=== PATIENT | female | born 1955 | race Caucasian/White ===

== ENCOUNTER 2016-07-01 10:19 | Observation (INO) ==
[2016-07-01] MEDS ORDERED: 0.9 % Sodium Chloride 1,000 ML IVC ONE (11:03)
[2016-07-01] MEDS ORDERED: Ondansetron 4 MG/2 ML VIAL IVP ONE (11:03)
--- NOTE | 2016-07-01 11:14 | Emergency Department Note ---
Disposition Clinical Impression: Intractable nausea and vomiting Qualifiers: Vomiting type: unspecified Qualified Code(s): R11.2 - Nausea with vomiting, unspecified Disposition: Admitted As Inpatient Condition: Fair Referrals: Abraham Toth DO [Primary Care Provider] - Forms: ED Satisfaction Letter Time of Disposition: 14:21 Nausea/Vomiting/Diarrhea HPI - General Chief complaint: ED Nausea/Vomiting/Diarrhea Stated complaint: vomiting Time Seen by Provider: 07/01/16 10:39 Source: patient Limitations: no limitations - History of Present Illness HPI Narrative: 60-year-old female presents to the emergency department for evaluation of nausea , vomiting, diarrhea for 3 days. Patient states her symptoms initially began on Monday of this week. Patient states that she's had at least 4 episodes like this in the past most recently in September of last year. Patient states she's been unable to keep anything down and states that she tried to eat some Jell-O and drink some water yesterday but vomited it back up. She denies any fevers or chills but states that she has had aching, right-sided back pain. She denies any injury but thinks she may have strained something while vomiting. Patient denies any abdominal pain, dysuria, hematemesis or melena. Exam is remarkable for an elderly female resting in bed in no acute distress. Patient is noted to have dry mucous membranes of the oropharynx. Heart is regular rate and rhythm. Lungs are clear to auscultation bilaterally. Her abdomen is soft and nontender. Patient has reproducible back pain with palpation of the paraspinal musculature of the right lumbar spine. No other findings noted on exam. Pt Subjective Complaint: nausea, vomiting, diarrhea Onset (ago): day(s) (3) Description of emesis: food contents Description of Diarrhea: water Associated Abdominal Pain: No Improves with: nothing Worsens with: nonthing Associated symptoms: Reports: nausea/vomiting - Related Data Home Medications Medication Instructions Recorded Confirmed Cyclobenzaprine [Flexeril] 10 mg PO TID PRN 10/12/15 07/01/16 Insulin DETEMIR [Levemir] 20 unit SQ DAILY 10/12/15 07/01/16 Trazodone HCl [TraZODone] 50 mg PO HS PRN 10/12/15 07/01/16 Insulin LISPRO [Humalog Kwikpen 10 unit SQ TID 11/30/15 07/01/16 U-100] Gabapentin [Neurontin] 1,200 mg PO HS 07/01/16 07/01/16 Gabapentin [Neurontin] 600 mg PO QAM 07/01/16 07/01/16 Lactobacillus [Culturelle] 1 each PO DAILY 07/01/16 07/01/16 Naproxen Sodium [Aleve] 220 mg PO Q6H PRN 07/01/16 07/01/16 Omeprazole 40 mg PO HS 07/01/16 07/01/16 Ranitidine HCl [Zantac] 150 mg PO QAM 07/01/16 07/01/16 Allergies Allergy/AdvReac Type Severity Reaction Status Date / Time cephalexin [From Keflex] Allergy Difficulty Verified 07/01/16 10:28 Breathing All systems ED: reviewed and negative except as stated. Constitutional: Denies: fever, chills Cardiovascular: Denies: chest pain, palpitations, syncope Respiratory: Denies: cough, dyspnea Gastrointestinal: Reports: nausea, vomiting, diarrhea. 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 - Social History Smoking Status: Current every day smoker Smokeless Tobacco Status: No Alcohol use: Reports: none Drug use: Reports: none Physical Exam - General Limitations: no limitations General appearance: alert, in no apparent distress - Head Head exam: atraumatic, normocephalic, normal inspection - ENT ENT exam: mucous membranes dry - Chest Chest inspection: Present: normal inspection, symmetric chest wall rise - Respiratory Respiratory exam: Present: normal lung sounds bilaterally - Cardiovascular Cardiovascular exam: Present: regular rate, normal rhythm, normal heart sounds - Abdominal Exam Abdominal exam: Present: soft, Non-Tender. Absent: tenderness, distention, guarding, rebound, rigidity - Neurological Exam Neurological exam: Present: alert, oriented X3 - Skin Skin exam: Present: warm, dry, intact, normal color Course - Reevaluation(s) Reevaluation #1: Patient was unable to tolerate by mouth fluids after initial by mouth challenge. Phenergan ordered. Patient will continue to be monitored in the emergency department. Time: 13:37 Reevaluation #2: Patient continues to vomit despite multiple doses of anti-medics. Still unable to tolerate by mouth fluids. Will premedicate and request admission to the hospital for intractable nausea and vomiting. Time: 14:20 Reevaluation #3: Discussed case with hospitalist service. Patient accepted for further evaluation and treatment. Patient stable at time of disposition. Time: 14:46 Vital Signs Temperature 97.4 F L 07/01/16 10:25 Pulse Rate 73 07/01/16 10:25 Respiratory Rate 20 07/01/16 10:25 Blood Pressure 141/77 07/01/16 10:25 O2 Sat by Pulse Oximetry 97 07/01/16 10:25 Temperature 97.4 F L 07/01/16 10:25 Pulse Rate 55 07/01/16 14:41 Respiratory Rate 16 07/01/16 14:41 Blood Pressure 137/73 07/01/16 14:41 O2 Sat by Pulse Oximetry 99 07/01/16 14:41 Oxygen Delivery Oxygen Delivery Nasal Cannula Nausea/Vomiting/Diarrhea - MDM Narrative Medical decision making narrative: I examined this patient and my medical decision-making was reviewed with the CUSTOMER SERVICE TECHNICIAN/PA/Advanced Practice Nurse/Resident Physician. I agree with the documented findings, disposition and treatment plan as described except to the extent set forth below. I evaluated this patient today with Dr. Smith, I agree with his evaluation and treatment plan, I supervised care the patient throughout her stay. Patient has a history of diabetes. She has had some nausea here. She has been very dehydrated. Given her fluids due to work to make sure she does not have DKA and then reassess. She says she wants to go home today she denied any chest pain. 1400: Patient did have one episode of emesis. It were giving her some Phenergan and hydration and then reassess. She is in agreement with this plan. 1425 hrs.: Patient has still had vomiting despite getting antiemetics and fluids anytime she eats. We will bring her into the hospital. She is in agreement with this plan. Impression is diabetes nausea and vomiting leukocytosis. Patient's in agreement with this plan. - Medical Records Medical records reviewed: Yes I reviewed the patient's medical records. - Lab Data Lab results reviewed: Yes I reviewed the patient's lab results. Result diagrams: 07/01/16 11:17 07/01/16 11:17 Lab Results 07/01/16 07/01/16 07/01/16 Range/Units 10:50 11:17 11:17 WBC 20.0 H (4.3-11.1) K/mcL RBC 5.16 H (3.82-4.97) M/mcL Hgb 15.3 (11.5-15.4) g/dL Hct 43.6 (35.3-44.9) % MCV 84.5 (83.0-100.0) fL MCH 29.7 (28.0-33.3) pg MCHC 35.1 (31.6-35.5) g/dL RDW 12.6 (11.5-14.5) % Plt Count 313 (140-400) K/mcL MPV 10.0 (9.4-12.4) fL Immature Gran % 1.1 (0-4) % Seg Neutrophils % 89.6 % Lymphocytes % 4.3 % Monocytes % 4.7 % Eosinophils % 0.0 % Basophils % 0.3 % Neutrophils # 17.9 H (1.6-8.9) K/mcL Lymphocytes # 0.9 (0.6-4.6) K/mcL Monocytes # 0.9 (0.0-1.3) K/mcL Eosinophils # 0.0 (0.0-0.6) K/mcL Basophils # 0.1 (0.0-0.2) K/mcL Immature Plt Fraction 4.6 (1.1-6.1) % Sodium 138 (136-145) mEq/L Potassium 3.5 (3.5-4.5) mEq/L Chloride 93 L (98-109) mEq/L Carbon Dioxide 30 H (19-29) mEq/L BUN 25 H (7-20) mg/dL Creatinine 0.93 (0.57-1.11) mg/dL Est GFR ( Amer) > 60 (> 60) Est GFR (Non-Af Amer) > 60 (> 60) BUN/Creatinine Ratio 27 H (6-26) Glucose 302 H (70-99) mg/dL Calculated Osmolality 302 H (280-300) Calcium 9.2 (8.6-10.8) mg/dL Urine Color Dark Yellow (Yellow) Urine Clarity Clear (Clear) Urine pH 5.5 (5.0-8.0) pH Units Ur Specific [place] > 1.030 H (1.010-1.025) Urine Protein 100 H (Neg-Trace) mg/dL Urine Glucose (UA) >=1000 H (Normal) mg/dL Urine Ketones 40 H (Negative) mg/dL Urine Blood Negative (Negative) Urine Nitrite Negative (Negative) Urine Bilirubin Small H (Negative) Urine Urobilinogen Normal (Normal) mg/dL Ur Leukocyte Esterase Negative (Negative) Urine Microscopic RBC 5-15 H (0-3) per hpf Urine Microscopic WBC 0-3 (0-3) per hpf Ur Squamous Epith Cells Many H (None-Few) per lpf Urine Bacteria None Seen (None-Few) per hpf Hyaline Casts None Seen (None-Few) per lpf Ur Culture Indicated? NO (NO) - Radiology Data Radiology results reviewed: Yes I reviewed the patient's radiology results. - EKG Data EKG attestation: Yes I reviewed and interpreted this EKG.
[2016-07-01 11:24] LABS: Basophils # 0.1 K/mcL (0.0-0.2); Basophils % 0.3 %; Hematocrit 43.6 % (35.3-44.9); Hemoglobin 15.3 g/dL (11.5-15.4); Immature Granulocytes % 1.1 % (0-4); Immature Platelets 4.6 % (1.1-6.1); Lymphocytes # 0.9 K/mcL (0.6-4.6); Lymphocytes % 4.3 %; Mean Corpuscular HGB Conc 35.1 g/dL (31.6-35.5); Mean Corpuscular Hemoglobin 29.7 pg (28.0-33.3); Mean Corpuscular Volume 84.5 fL (83.0-100.0); Monocytes # 0.9 K/mcL (0.0-1.3); Monocytes % 4.7 %; Neutrophils # 17.9 K/mcL (1.6-8.9); Platelet Count 313 K/mcL (140-400); Red Blood Count 5.16 M/mcL (3.82-4.97); Red Cell Distribution Width 12.6 % (11.5-14.5); Segmented Neutrophils % 89.6 %
[2016-07-01 11:31] LABS: Bilirubin,Urine Small (Negative); Blood,Urine Negative (Negative); Clarity,Urine Clear (Clear); Color,Urine Dark Yellow (Yellow); Glucose,Urine (UA) >=1000 mg/dL (Normal); Ketones,Urine 40 mg/dL (Negative); Leukocyte Esterase,Urine Negative (Negative); Nitrite,Urine Negative (Negative); PH,Urine 5.5 pH Units (5.0-8.0); Protein,Urine 100 mg/dL (Neg-Trace); Specific Gravity,Urine > 1.030 (1.010-1.025); Urobilinogen,Urine Normal (Normal)
[2016-07-01 11:33] LABS: Bacteria,Urine None Seen per hpf (None-Few); Hyaline Casts,Urine None Seen per lpf (None-Few); Squamous Epithelial Cell,Urine Many per lpf (None-Few); WBC,Urine 0-3 per hpf (0-3)
[2016-07-01 11:36] LABS: BUN/Creatinine Ratio 27 (6-26); Blood Urea Nitrogen 25 mg/dL (7-20); Calcium 9.2 mg/dL (8.6-10.8); Carbon Dioxide 30 mEq/L (19-29); Chloride 93 mEq/L (98-109); Glucose 302 mg/dL (70-99); Osmolality,Calculated 302 (280-300); Potassium 3.5 mEq/L (3.5-4.5); Sodium 138 mEq/L (136-145); eGFR For African Americans > 60 (> 60); eGFR For Non-African Americans > 60 (> 60)
[2016-07-01] MEDS ORDERED: *HR* FentaNYL (PF) 100 MCG/2 ML VIAL IV ONE ×2 (11:50→14:19)
[2016-07-01] MEDS ORDERED: 0.9 % Sodium Chloride 1,000 ML IV ONE (13:34)
[2016-07-01] MEDS ORDERED: *HR* Promethazine 25 MG/ML VIAL IVP ONE (13:34)
[2016-07-01] MEDS ORDERED: Metoclopramide 10 MG/2 ML VIAL IVP ONE (14:19)
[2016-07-01] MEDS ORDERED: Naloxone 0.4 MG/ML INJ IVP PRN (16:20)
[2016-07-01] MEDS ORDERED: Ondansetron 4 MG/2 ML VIAL IVP PRN (16:20)
[2016-07-01] MEDS ORDERED: Dextrose Gel 15 GM PO PRN ×2 (16:23)
[2016-07-01] MEDS ORDERED: D5% in Water 1,000 ML IV PRN (16:23)
[2016-07-01] MEDS ORDERED: *HR* Dextrose 50 % in Water (Syg) 50 ML SYRINGE IVP PRN (16:23)
[2016-07-01] MEDS ORDERED: traZODone 50 MG TABLET PO PRN (16:24)
[2016-07-01] MEDS ORDERED: 0.9 % Sodium Chloride 1,000 ML IVC SCH (16:30)
--- NOTE | 2016-07-01 16:54 | Internal Med History&Physical ---
<Darius Clifford - Last Filed: 07/01/16 19:03> Date of Encounter: 07/01/16 Internal Medicine - H&P: HPI History of present illness: Ms. Staton is a 60 year old female Internal Medicine - H&P: Meds Cyclobenzaprine [Flexeril] 10 mg PO TID PRN 10/12/15 [History] Insulin DETEMIR [Levemir] 20 unit SQ DAILY 10/12/15 [History] Trazodone HCl [TraZODone] 50 mg PO HS PRN 10/12/15 [History] Insulin LISPRO [Humalog Kwikpen U-100] 10 unit SQ TID 11/30/15 [History] Gabapentin [Neurontin] 1,200 mg PO HS 07/01/16 [History] Gabapentin [Neurontin] 600 mg PO QAM 07/01/16 [History] Lactobacillus [Culturelle] 1 each PO DAILY 07/01/16 [History] Naproxen Sodium [Aleve] 220 mg PO Q6H PRN 07/01/16 [History] Omeprazole 40 mg PO HS 07/01/16 [History] Ranitidine HCl [Zantac] 150 mg PO QAM 07/01/16 [History] Allergies cephalexin [From Keflex] Allergy (Verified 07/01/16 10:28) Difficulty Breathing All Systems PM: A 10-system review of systems was performed and is negative for pertinent findings except as documented above in the HPI. - Constitutional Vitals: Temp Pulse Resp BP Pulse Ox 98.1 F 59 16 151/66 91 L 07/01/16 15:51 07/01/16 15:51 07/01/16 15:51 07/01/16 15:51 07/01/16 15:51 Internal Med - H&P Results - Labs CBC & Chem 7: 07/01/16 11:17 07/01/16 11:17 - Attending Attestation I examined this patient and my medical decision-making was reviewed with the Advanced Practice Provider. I agree with the documented findings, disposition and treatment plan as described except to the extent set forth below. On exam she is in no acute distress, heart regular rate and rhythm S1-S2, lungs clear, abdomen soft. I will add Levemir to moderate sliding scale. Switch diet to clear liquid diet and advance slowly as tolerated. Provide IV fluids. Check urine toxicology. <Abeba Caal - Last Filed: 07/01/16 21:06> Date of Encounter: 07/01/16 Time of Encounter: 16:50 Assessment and Plan (1) Dehydration Current visit: Yes Status: Acute Patient with nausea, vomiting x 3 days. She reports some episodes of diarrhea a few days ago as well. Unable to keep anything down. Mucus membranes dry on exam. 2L of 0.9NS bolus given. 0.9NS at 150mL/hr (2) Type 2 diabetes mellitus Current visit: Yes Status: Acute Patient has not been checking her blood sugars or giving herself insulin over the last 3 days because she wasn't feeling well. Blood sugar is 302 and urine with large glucose and ketones. Patient has dehydration and mild DKA. Diabetic diet as tolerated. Check blood sugar Q6hr Sliding scale insulin correction dose hypoglycemic protocol. recheck chemistry at 8pm and in the morning Qualifiers: Diabetes mellitus complication status: with ketoacidosis Diabetes mellitus complication detail: without coma Diabetes mellitus pharmacy intake technician insulin use: with snf use Qualified Code(s): E13.10 - Other specified diabetes mellitus with ketoacidosis without coma; Z79.4 - skilled nursing (current) use of insulin (3) Intractable nausea and vomiting Current visit: Yes Status: Acute Patient with Nausea and vomiting x 3 days, unrelieved by zosyn and phenergan given in ED. 2L bolus given, IV fluids of 0.9NS at 150ml/hr PRN Zosyn and PHenergan. Qualifiers: Vomiting type: unspecified Qualified Code(s): R11.2 - Nausea with vomiting , unspecified (4) Leukocytosis Current visit: No Status: Acute WBC count 20.0, likely due to gastroenteritis versus reactive. Patient afebrile. Will recheck labs in the morning. Qualifiers: Leukocytosis type: bandemia Qualified Code(s): D72.825 - Bandemia (5) DVT prophylaxis Current visit: Yes Status: Acute Encourage ambulation anti-embolic stockings Heparin 5,000u SQ BID Internal Medicine - H&P: HPI Chief complaint: intractible nausea and vomiting Admitted From: Emergency Dept Plans for Post Hospital Care: Home History of present illness: Ms. Staton is a 60 year old female with type 2 diabetes, COPD and GERD who presented to the ED today with 3 days of nausea and vomiting. She reports she had nausea and vomiting which started 3 days ago she also had some episodes of diarrhea but has not have any diarrhea in the last 2 days. He is unable to keep anything down. She denies any fever or chills, sweats, abdominal pain, body aches, headache. She denies any chest pain, palpitations, shortness of breath, cough. She reports some back pain she attributes to pulling a muscle when vomiting. She has not checked her blood sugar or giving herself insulin in the last 3 days because she has not felt well enough. Evaluation in the emergency department was significant for elevated white count to 20.0, elevated blood sugar to 302. Her anion gap is 15. Urine showed large amounts of glucose and ketones. She was given 2 L of 0.9 bolus in the emergency department , antiemetics, and pain medicine. She has no relief from her nausea and vomiting. Her back pain was somewhat relieved by pain medicine. On exam she is alert and oriented in no distress. Abdomen is diffusely tender. Heart has regular rate and rhythm, lungs are clear to auscultation bilaterally. Past Med Surg Social Fam HX - Past Medical History Medical history: arthritis, COPD, diabetes, GERD Psychiatric history: anxiety, depression - Past Surgical History Surgical History: breast surgery - Social History Smoking Status: Current every day smoker (30 pack year history) Smokeless Tobacco Status: No Alcohol use: none Drug use: none - Family History Sister Living Status: Hx Family Cancer: Yes (breast ca) Father Living Status: Hx Family Cancer: Yes All Systems PM: A 10-system review of systems was performed and is negative for pertinent findings except as documented above in the HPI. - Constitutional Constitutional: no chills, no fever(s), no night sweats - EENT Eyes: no change in vision, no discharge, no pain, no photophobia Nose, mouth and throat: no dysphagia, no nasal discharge, no neck pain, no sore throat - Cardiovascular Cardiovascular ROS IM: no chest pain, no diaphoresis, no dyspnea, no lightheadedness, no palpitations, no syncope - Respiratory Respiratory: no cough, no dyspnea, no wheezing, no excessive phlegm production - Gastrointestinal Gastrointestinal: diarrhea, nausea, vomiting, no abdominal pain, no hematemesis , no hematochezia, no melena - Genitourinary Genitourinary: no change in urinary stream, no dysuria, no flank pain, no hematuria - Musculoskeletal Musculoskeletal ROS IM: no numbness, no tingling - Integumentary Integumentary IM: no rash, no unusual bruising - Neurological Neurological ROS: no confusion, no convulsions, no focal weakness, no numbness, no tingling, no tremor(s) - Hematologic/Lymphatic Hematologic/Lymphatic: no easy bruising - Constitutional Vitals: Temp Pulse Resp BP Pulse Ox 98.1 F 59 16 151/66 91 L 07/01/16 15:51 07/01/16 15:51 07/01/16 15:51 07/01/16 15:51 07/01/16 15:51 General appearance: Present: A&O X 3, no acute distress - Head Head exam: Present: atraumatic, normocephalic - Eye Eye exam: Present: PERRL, conjuntiva pink, sclera anicteric Pupils: Present: PERRL - Neck Neck exam general surgery: Present: supple, trachea midline. Absent: lymphadenopathy - Respiratory Respiratory exam: Present: CTAB. Absent: accessory muscle use, rales, rhonchi, wheezes - Cardiovascular Cardiovascular exam: Present: RRR, +S1, +S2. Absent: diastolic murmur, gallop, rubs, systolic murmur - GI/Abdominal GI/Abdominal exam: Present: normal bowel sounds, soft, tenderness, no peritoneal signs. Absent: distended - Extremities Exam Extremities exam: Present: warm, radial pulses palpable and symetrical. Absent : calf tenderness, cyanotic, pedal edema - Neurological Exam Neurological exam: Present: CN II-XII intact, oriented X3, no focal deficits. Absent: facial droop, speech deficit - Skin Skin exam: Present: dry, intact Internal Med - H&P Results - Labs CBC & Chem 7: 07/01/16 11:17 07/01/16 11:17 Labs: All Lab Results (24 Hours) 07/01/16 07/01/16 07/01/16 Range/Units 10:50 11:17 11:17 WBC 20.0 H (4.3-11.1) K/mcL RBC 5.16 H (3.82-4.97) M/mcL Hgb 15.3 (11.5-15.4) g/dL Hct 43.6 (35.3-44.9) % MCV 84.5 (83.0-100.0) fL MCH 29.7 (28.0-33.3) pg MCHC 35.1 (31.6-35.5) g/dL RDW 12.6 (11.5-14.5) % Plt Count 313 (140-400) K/mcL MPV 10.0 (9.4-12.4) fL Immature Gran % 1.1 (0-4) % Seg Neutrophils % 89.6 % Lymphocytes % 4.3 % Monocytes % 4.7 % Eosinophils % 0.0 % Basophils % 0.3 % Neutrophils # 17.9 H (1.6-8.9) K/mcL Lymphocytes # 0.9 (0.6-4.6) K/mcL Monocytes # 0.9 (0.0-1.3) K/mcL Eosinophils # 0.0 (0.0-0.6) K/mcL Basophils # 0.1 (0.0-0.2) K/mcL Immature Plt Fraction 4.6 (1.1-6.1) % Sodium 138 (136-145) mEq/L Potassium 3.5 (3.5-4.5) mEq/L Chloride 93 L (98-109) mEq/L Carbon Dioxide 30 H (19-29) mEq/L BUN 25 H (7-20) mg/dL Creatinine 0.93 (0.57-1.11) mg/dL Est GFR ( Amer) > 60 (> 60) Est GFR (Non-Af Amer) > 60 (> 60) BUN/Creatinine Ratio 27 H (6-26) Glucose 302 H (70-99) mg/dL Calculated Osmolality 302 H (280-300) Calcium 9.2 (8.6-10.8) mg/dL Urine Color Dark Yellow (Yellow) Urine Clarity Clear (Clear) Urine pH 5.5 (5.0-8.0) pH Units Ur Specific [place] > 1.030 H (1.010-1.025) Urine Protein 100 H (Neg-Trace) mg/dL Urine Glucose (UA) >=1000 H (Normal) mg/dL Urine Ketones 40 H (Negative) mg/dL Urine Blood Negative (Negative) Urine Nitrite Negative (Negative) Urine Bilirubin Small H (Negative) Urine Urobilinogen Normal (Normal) mg/dL Ur Leukocyte Esterase Negative (Negative) Urine Microscopic RBC 5-15 H (0-3) per hpf Urine Microscopic WBC 0-3 (0-3) per hpf Ur Squamous Epith Cells Many H (None-Few) per lpf Urine Bacteria None Seen (None-Few) per hpf Hyaline Casts None Seen (None-Few) per lpf Ur Culture Indicated? NO (NO)
[2016-07-01] MEDS: 0.9 % Sodium Chloride 1,000 ML IVC SCH (17:10)
[2016-07-01] MEDS: *HR* Promethazine 25 MG/ML VIAL IVP PRN (17:10)
[2016-07-01] MEDS: Insulin LISPRO 300 UNITS/3 ML VIAL SQ SCH (18:08)
[2016-07-01] MEDS: *HR* Heparin 5,000 UNIT/ML VIAL SQ SCH (18:11)
[2016-07-01] MEDS ORDERED: *HR* Morphine 2 MG/ML SYRINGE IVP ONE (20:11)
[2016-07-01] MEDS ORDERED: Insulin DETEMIR 100 UNIT/ML X5UNITS SQ SCH (21:00)
[2016-07-01] MEDS: Pantoprazole 40 MG VIAL IVP SCH (21:21)
[2016-07-01] MEDS: Gabapentin 400 MG CAPSULE PO SCH (21:21)
[2016-07-01 22:17] LABS: BUN/Creatinine Ratio 24 (6-26); Blood Urea Nitrogen 18 mg/dL (7-20); Calcium 8.1 mg/dL (8.6-10.8); Carbon Dioxide 24 mEq/L (19-29); Chloride 102 mEq/L (98-109); Glucose 234 mg/dL (70-99); Osmolality,Calculated 299 (280-300); Potassium 3.3 mEq/L (3.5-4.5); Sodium 140 mEq/L (136-145); eGFR For African Americans > 60 (> 60); eGFR For Non-African Americans > 60 (> 60)
[2016-07-02] MEDS: 0.9 % Sodium Chloride 1,000 ML IVC SCH ×2 (00:08→06:46)
[2016-07-02] MEDS: Insulin LISPRO 300 UNITS/3 ML VIAL SQ SCH ×4 (00:20→17:36)
[2016-07-02 05:40] LABS: Basophils # 0.1 K/mcL (0.0-0.2); Basophils % 0.3 %; Eosinophils # 0.1 K/mcL (0.0-0.6); Eosinophils % 0.3 %; Hematocrit 36.6 % (35.3-44.9); Immature Granulocytes % 0.7 % (0-4); Lymphocytes # 2.4 K/mcL (0.6-4.6); Lymphocytes % 13.9 %; Mean Corpuscular HGB Conc 34.4 g/dL (31.6-35.5); Mean Corpuscular Hemoglobin 30.1 pg (28.0-33.3); Mean Corpuscular Volume 87.4 fL (83.0-100.0); Monocytes # 1.6 K/mcL (0.0-1.3); Monocytes % 9.2 %; Neutrophils # 13.1 K/mcL (1.6-8.9); Platelet Count 250 K/mcL (140-400); Red Blood Count 4.19 M/mcL (3.82-4.97); Red Cell Distribution Width 12.9 % (11.5-14.5); Segmented Neutrophils % 75.6 %
[2016-07-02 05:46] LABS: Hemoglobin A1C 7.5 %
[2016-07-02 05:55] LABS: BUN/Creatinine Ratio 18 (6-26); Blood Urea Nitrogen 14 mg/dL (7-20); Calcium 7.6 mg/dL (8.6-10.8); Carbon Dioxide 27 mEq/L (19-29); Chloride 106 mEq/L (98-109); Glucose 101 mg/dL (70-99); Osmolality,Calculated 293 (280-300); Potassium 3.7 mEq/L (3.5-4.5); Sodium 141 mEq/L (136-145); eGFR For African Americans > 60 (> 60); eGFR For Non-African Americans > 60 (> 60)
[2016-07-02 05:58] LABS: Hemoglobin 12.6 g/dL (11.5-15.4)
[2016-07-02] MEDS: *HR* Heparin 5,000 UNIT/ML VIAL SQ SCH ×2 (06:44→17:36)
[2016-07-02 08:03] LABS: Amphetamine Screen,Urine Negative ng/mL (Cutoff=1000); Barbiturate Screen,Urine Negative ng/mL (Cutoff=200); Benzodiazepines Screen,Urine Negative ng/mL (Cutoff=200); Cannabinoid Screen,Urine Negative ng/mL (Cutoff = 50); Cocaine Screen,Urine Negative ng/mL (Cutoff= 300); Opiate Screen,Urine Positive ng/mL (Cutoff=300); Phencyclidine Screen,Urine Negative ng/mL (Cutoff=25)
[2016-07-02] MEDS: Pantoprazole 40 MG VIAL IVP SCH ×2 (08:13→21:06)
[2016-07-02] MEDS: Lactobacillus 1 EACH CAP.SPRINK PO SCH (08:13)
[2016-07-02] MEDS: *HR* Promethazine 25 MG/ML VIAL IVP PRN ×2 (08:13→15:05)
[2016-07-02] MEDS: Famotidine 20 MG TABLET PO SCH (08:14)
[2016-07-02] MEDS: Gabapentin 300 MG CAPSULE PO SCH (08:14)
--- NOTE | 2016-07-02 12:17 | Internal Med Progress Note ---
Date of Encounter: 07/02/16 Time of Encounter: 12:00 - Assessment and plan (1) Nausea and vomiting in adult patient Current Visit: No Status: Acute Assessment and plan: likely secondary to gastritis. no vomiting since admission but very nauseous. She did not eat anything till 6pm when he had a bite of jellow. /has received IV phenergan multiple time dueing the day. continue IV PPI and if patient tolerates more her diet I will dc her home tomorrow. (2) Dehydration Current Visit: Yes Status: Acute Assessment and plan: resolved. On admission, patient had hypochloremia, elevated BUN and elevated glucose at 302. received 3550 ml of IV fluids. (3) Gastritis Current Visit: No Status: Acute Assessment and plan: plan as above. Qualifiers: Gastritis type: unspecified gastritis Chronicity: acute Gastritis bleeding: without bleeding Qualified Code(s): K29.00 - Acute gastritis without bleeding (4) Leukocytosis Current Visit: No Status: Acute Assessment and plan: could be reactive from dehydration vs viral gastroenteritis. close monitor. UA is negative. no diarrhea. no cough. no Upper respiratory symptoms. Qualifiers: Leukocytosis type: leukemoid reaction Qualified Code(s): D72.823 - Leukemoid reaction (5) Type 2 diabetes mellitus Current Visit: Yes Status: Acute Assessment and plan: HA1c 7.5. elevated glucose level on admission continue insulin sliding scale and diabetic diet. 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 she does feel better than yesterday. - Constitutional Vitals: Temp Pulse Resp BP Pulse Ox 98.4 F 60 18 115/67 90 L 07/02/16 11:22 07/02/16 11:22 07/02/16 11:22 07/02/16 11:22 07/02/16 11:22 General appearance: Present: cooperative, A&O X 3, pleasant, no acute distress, answers questions appropriately - Eye Eye exam: Present: PERRL, sclera anicteric - Neck Neck exam general surgery: Present: supple, trachea midline. Absent: lymphadenopathy - Respiratory Respiratory exam: Present: CTAB - Cardiovascular Cardiovascular exam: Present: RRR - GI/Abdominal GI/Abdominal exam: Present: normal bowel sounds, soft. Absent: distended, tenderness - Extremities Exam Extremities exam: Absent: pedal edema - Back Exam Back exam: Absent: CVA tenderness (L), CVA tenderness (R) - Neurological Exam Neurological exam: Present: alert, oriented X3. Absent: facial droop, speech deficit Internal Medicine: Result - Labs CBC & Chem 7: 07/02/16 05:12 07/02/16 05:12 Labs: Short CBC 07/02/16 Range/Units 05:12 WBC 17.4 H (4.3-11.1) K/mcL Hgb 12.6 D (11.5-15.4) g/dL Hct 36.6 (35.3-44.9) % Plt Count 250 (140-400) K/mcL Neutrophils # 13.1 H (1.6-8.9) K/mcL BMP 07/01/16 07/02/16 21:42 05:12 Sodium 140 141 Potassium 3.3 L 3.7 Chloride 102 106 Carbon Dioxide 24 27 BUN 18 14 Creatinine 0.76 0.78 Glucose 234 H 101 H Calcium 8.1 L 7.6 L - VTE Documentation of Mechanical Device: Graduated compression elastic hosiery Consult Discharge Plan - Plan Referrals: Abraham Toth DO [Primary Care Provider] -
[2016-07-02] MEDS: Gabapentin 400 MG CAPSULE PO SCH (20:59)
[2016-07-03] MEDS: Insulin LISPRO 300 UNITS/3 ML VIAL SQ SCH ×2 (03:45→07:21)
[2016-07-03 04:50] LABS: Alanine Aminotransferase 12 Units/L (0-55); Albumin 2.8 g/dL (3.5-5.0); Albumin/Globulin Ratio 1.1 (1.1-2.2); Alkaline Phosphatase 44 Units/L (38-126); Aspartate Amino Transferase 15 Units/L (5-34); BUN/Creatinine Ratio 14 (6-26); Bilirubin,Total 0.5 mg/dL (0.2-1.2); Blood Urea Nitrogen 10 mg/dL (7-20); Calcium 8.1 mg/dL (8.6-10.8); Carbon Dioxide 24 mEq/L (19-29); Chloride 106 mEq/L (98-109); Globulin 2.5 g/dL (2.4-3.5); Glucose 99 mg/dL (70-99); Magnesium 1.4 mg/dL (1.6-2.6); Osmolality,Calculated 289 (280-300); Phosphorous 2.5 mg/dL (2.3-4.7); Potassium 3.4 mEq/L (3.5-4.5); Sodium 140 mEq/L (136-145); Total Protein 5.3 g/dL (6.0-8.3); eGFR For African Americans > 60 (> 60); eGFR For Non-African Americans > 60 (> 60)
[2016-07-03 07:18] VITALS: BP 117/59
[2016-07-03] MEDS: *HR* Heparin 5,000 UNIT/ML VIAL SQ SCH (09:56)
[2016-07-03] MEDS: Pantoprazole 40 MG VIAL IVP SCH (09:56)
[2016-07-03] MEDS: Lactobacillus 1 EACH CAP.SPRINK PO SCH (09:56)
[2016-07-03] MEDS: Famotidine 20 MG TABLET PO SCH (09:56)
[2016-07-03] MEDS: Gabapentin 300 MG CAPSULE PO SCH (09:56)
[2016-07-03] MEDS ORDERED: Potassium Chloride Elixir 20 MEQ/15 ML UDC PO ONE (10:30)
[2016-07-03] MEDS ORDERED: Magnesium Oxide 400 MG TABLET PO ONE (10:35)
--- NOTE | 2016-07-03 10:36 | Discharge Summary ---
Date of Encounter: 07/03/16 Time of Encounter: 10:32 - Discharge Diagnosis (1) Nausea and vomiting in adult patient Priority: Primary Status: Acute (2) Dehydration Priority: Primary Status: Acute (3) Gastritis Priority: Primary Status: Acute Qualifiers: Gastritis type: unspecified gastritis Chronicity: acute Gastritis bleeding: without bleeding Qualified Code(s): K29.00 - Acute gastritis without bleeding (4) Leukocytosis Priority: Primary Status: Acute Qualifiers: Leukocytosis type: leukemoid reaction Qualified Code(s): D72.823 - Leukemoid reaction (5) Type 2 diabetes mellitus Priority: Secondary Status: Chronic Qualifiers: Diabetes mellitus complication status: with ketoacidosis Diabetes mellitus complication detail: without coma Diabetes mellitus retirement insulin use: with retirement use Qualified Code(s): E13.10 - Other specified diabetes mellitus with ketoacidosis without coma; Z79.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 [place] Medications: Cyclobenzaprine [Flexeril] 10 mg PO TID PRN 10/12/15 [History] Trazodone HCl [TraZODone] 50 mg PO HS PRN 10/12/15 [History] Insulin LISPRO [Humalog Kwikpen U-100] 10 unit SQ TID 11/30/15 [History] Gabapentin [Neurontin] 1,200 mg PO HS 07/01/16 [History] Gabapentin [Neurontin] 600 mg PO QAM 07/01/16 [History] Lactobacillus [Culturelle] 1 each PO DAILY 07/01/16 [History] Omeprazole 40 mg PO HS 07/01/16 [History] Ranitidine HCl [Zantac] 150 mg PO QAM 07/01/16 [History] Glipizide/Metformin HCl [Glipizide-Metformin 2.5-500 mg] 1 each PO DAILY #30 tablet 07/03/16 [Rx] Magnesium Oxide [Mag-Ox] 400 mg PO BID #60 tablet 07/03/16 [Rx] Pantoprazole Sodium 40 mg PO DAILY #30 tablet. 07/03/16 [Rx] Allergies/Adverse Reactions: Allergies cephalexin [From Keflex] Allergy (Verified 07/01/16 10:28) Difficulty Breathing Date of admission: 07/01/16 14:54 Primary care physician: Abraham Toth, - Patient Status Disposition: Home, Self-Care Condition: Good Functional capacity at discharge: independent ambulation Overall status at discharge: patient is progressing back to baseline - Discharge Instructions Instructions: Acute Kidney Injury (DC) Follow Up With: Abraham Toth, [Primary Care Provider] - (f/u in 1 week) Additional Instructions: Follow up a diabetic diet. drink plenty of fluids at least 1.8 liters a day. check your blood sugars 4 times a day (before breakfast, lunch and dinner and at bedtime) f/u with your primary care doctor to address your diabetes, gastritis and have repeat blood tests. - Diet and Activity Activity: resume usual activities as tolerated Diet: diabetic diet, low fat, low cholesterol, low salt diet Interval History: Patient feels better and is eager to go home. She denies any nausea, vomiting or abdominal pain. She is tolerating well her diet. Does not use any antiemetics. Hospital course: Ms. Staton is a 60 year old female with past medical history of diabetes, COPD, and GERD who presented with a chief complaint of nausea, and vomiting. She was admitted with severe dehydration due to acute gastritis and was started on IV fluids and IV PPI with slow improvement. The day of discharge, the patient was eating well and was eager to go home. Her potassium and magnesium were mildly decreased and these were replaced. PLAN: Patient was encouraged to increase the amount of fluid intake. Follow-up a strict diabetic diet. Checks her blood sugars 4 times daily and bring the log to doctor's office. Follow-up with primary care physician next week. Repeat myelination levels per primary care physician. - Time Spent with Patient Total time spent providing and/or coordinating discharge services: - Constitutional Vitals: Temp Pulse Resp BP Pulse Ox 98.1 F 52 18 117/59 94 L 07/03/16 07:17 07/03/16 07:17 07/03/16 07:17 07/03/16 07:07/03/16 09:21 General appearance: Present: cooperative, A&O X 3, pleasant, no acute distress, answers questions appropriately - Eye Eye exam: Present: PERRL - Neck Neck exam general surgery: Present: supple, trachea midline. Absent: lymphadenopathy - Respiratory Respiratory exam: Present: CTAB - Cardiovascular Cardiovascular exam: Present: RRR - GI/Abdominal GI/Abdominal exam: Present: normal bowel sounds, soft. Absent: distended, tenderness - Extremities Exam Extremities exam: Absent: pedal edema - Back Exam Back exam: Absent: CVA tenderness (L), CVA tenderness (R) - Neurological Exam Neurological exam: Present: alert, oriented X3. Absent: facial droop, speech deficit - Skin Skin exam: Absent: rash - VTE Documentation of Mechanical Device: Graduated compression elastic hosiery
--- NOTE | 2016-07-03 21:49 | Electrocardiograph Report ---
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
== END 2016-07-03 12:00 | disposition home or self-care (01) ==
LOC: SUPCPDRO → EMEROO 10:19 → 3BNU 10:19 → SUATTDRO 14:54 → 3BNU 15:48
PROVIDERS: ADMIT Internal Medicine; ATTEND Internal Medicine

== ENCOUNTER 2017-03-04 14:50 | Inpatient (IN) ==
[~2017-03-04 14:50] MED LIST: Aminoglycoside Consult 1 EACH MC ONE
[2017-03-04] MEDS ORDERED: 0.9 % Sodium Chloride 1,000 ML IVC ONE (15:11)
[2017-03-04] MEDS ORDERED: *HR* HYDROmorphone (PF) 1 MG/ML SYRINGE IVP ONE (15:11)
[2017-03-04] MEDS ORDERED: Ondansetron 4 MG/2 ML VIAL IVP ONE (15:11)
--- NOTE | 2017-03-04 15:15 | Emergency Department Note ---
Disposition Clinical Impression: Acute kidney injury Nausea & vomiting Qualifiers: Vomiting type: unspecified Vomiting Intractability: unspecified Qualified Code( s): R11.2 - Nausea with vomiting, unspecified Leukocytosis Qualifiers: Leukocytosis type: unspecified Qualified Code(s): D72.829 - Elevated white blood cell count, unspecified Disposition: Admitted As Inpatient Condition: Fair Referrals: Abraham Toth DO [Primary Care Provider] - Forms: ED Satisfaction Letter Time of Disposition: 17:00 Nausea/Vomiting/Diarrhea HPI - General Chief complaint: ED Nausea/Vomiting/Diarrhea Stated complaint: N/V Time Seen by Provider: 03/04/17 15:00 Source: patient Mode of arrival: ambulatory Limitations: no limitations Nursing Notes Reviewed: Yes Vital Signs Reviewed: Yes - History of Present Illness HPI Narrative: 61-year-old female who comes in with nausea vomiting for the last day. Patient states that she has a history of this recurring. She states she's been evaluated and etiology has not been determined. Review of records show the patient did have endoscopy 10/2015. Results show esophagitis, gastritis, duodenitis. Pt Subjective Complaint: nausea, vomiting Onset (ago): day(s) Description of emesis: food contents (1) Associated Abdominal Pain: Yes If pain, Location of pain: diffuse Severity: mild Improves with: nothing Worsens with: nonthing Associated symptoms: Reports: myalgias - Related Data Home Medications Medication Instructions Recorded Confirmed Cyclobenzaprine [Flexeril] 10 mg PO TID PRN 10/12/15 03/04/17 Insulin LISPRO [Humalog Kwikpen 12 unit SQ TID 11/30/15 03/04/17 U-100] Gabapentin [Neurontin] 600 mg PO TID 07/01/16 03/04/17 Omeprazole 40 mg PO HS 07/01/16 03/04/17 Insulin DETEMIR [Levemir] 45 unit SQ DAILY 03/04/17 03/04/17 Allergies Allergy/AdvReac Type Severity Reaction Status Date / Time cephalexin [From Keflex] Allergy Difficulty Verified 03/04/17 15:00 Breathing All systems ED: reviewed and negative except as stated. Constitutional: Denies: fever, chills, weakness, weight change Eyes: Denies: eye pain, eye discharge, vision change ENT ED: Denies: ear pain, throat pain, dental pain, hearing loss, epistaxis, congestion, dysphagia Cardiovascular: Denies: chest pain, palpitations, dyspnea on exertion, edema, syncope Respiratory: Denies: cough, dyspnea, wheezes, hemoptysis, stridor Gastrointestinal: Reports: abdominal pain, nausea, vomiting. Denies: diarrhea, constipation, hematemesis, melena, hematochezia Genitourinary: Denies: dysuria, frequency, hematuria, discharge Musculoskeletal: Denies: back pain, neck pain, arthralgia, myalgia Integumentary: Denies: rash, abrasion, lesions Neurological: Denies: headache, weakness, numbness, paresthesias, confusion, abnormal gait, vertigo Psychiatric: Denies: anxiety, depression, suicidal thoughts, homicidal thoughts , auditory hallucinations, visual hallucinations Endocrine: Denies: fatigue Hematological/Lymphatic: Denies: easy bleeding, easy bruising Allergic/Immunologic: Denies: facial swelling, urticaria Past Medical History - Past Medical History Medical history: Reports: arthritis, COPD, diabetes, GERD Surgical history: Reports: breast surgery Psychiatric history: Reports: anxiety, depression COLOR MIXER history: Reports: bilateral tubal ligation - Social History Smoking Status: Current every day smoker Smokeless Tobacco Status: No Alcohol use: Reports: none Drug use: Reports: none Physical Exam - General Limitations: no limitations General appearance: alert, in no apparent distress - Head Head exam: atraumatic, normocephalic, normal inspection - Eye Eye exam: Present: normal appearance, PERRL, EOMI - ENT ENT exam: normal exam, normal oropharynx, mucous membranes moist - Neck Neck exam: Present: normal inspection, full ROM, trachea midline - Chest Chest inspection: Present: normal inspection, symmetric chest wall rise - Respiratory Respiratory exam: Present: normal lung sounds bilaterally - Cardiovascular Cardiovascular exam: Present: regular rate, normal rhythm, normal heart sounds - Abdominal Exam Abdominal exam: Present: tenderness. Absent: guarding, rebound Abdominal tenderness: Present: epigastrium - Extremities Exam Extremities exam: Present: normal inspection, full ROM. Absent: tenderness, pedal edema - Expanded Lower Extremity Exam Gait: not tested/not observed - Back Exam Back exam: Present: normal inspection, full ROM. Absent: tenderness - Neurological Exam Neurological exam: Present: alert, oriented X3 - Psychiatric Psychiatric exam: Present: normal affect, normal mood - Skin Skin exam: Present: warm, dry, intact, normal color Course - Consultations Consultation #1: Discussed Levaquin dosing with pharmacy recommendations given. Time: 16:59 Consultation #2: Discussed with Leonard Dukes, Request hematology consult and nephrology consult. Time: 18:07 Consultation #3: Discussed with Dr. Stratton. Discussed with Dr. Correa, will see in consult. Time: 18:35 Vital Signs Temperature 97.5 F L 03/04/17 14:57 Pulse Rate 112 03/04/17 14:57 Respiratory Rate 18 03/04/17 14:57 Blood Pressure 110/66 03/04/17 14:57 O2 Sat by Pulse Oximetry 93 03/04/17 14:57 Temperature 97.5 F L 03/04/17 14:57 Pulse Rate 80 03/04/17 17:19 Respiratory Rate 16 03/04/17 17:19 Blood Pressure 137/81 03/04/17 17:19 O2 Sat by Pulse Oximetry 96 03/04/17 17:19 Oxygen Delivery Oxygen Delivery Room Air Nausea/Vomiting/Diarrhea - Lab Data Result diagrams: 03/04/17 15:20 03/04/17 15:20 Lab Results 03/04/17 03/04/17 03/04/17 Range/Units 15:20 15:20 16:05 WBC 39.3 H* (4.3-11.1) K/mcL RBC 6.24 H (3.82-4.97) M/mcL Hgb 18.1 H (11.5-15.4) g/dL Hct 51.0 H (35.3-44.9) % MCV 81.7 L (83.0-100.0) fL MCH 29.0 (28.0-33.3) pg MCHC 35.5 (31.6-35.5) g/dL RDW 12.5 (11.5-14.5) % Plt Count 573 H (140-400) K/mcL MPV 10.8 (9.4-12.4) fL Seg Neutrophils % 88.0 % Band Neutrophils % 4.0 (0-4) % Lymphocytes % 8.0 % Neutrophils # 36.2 H (1.6-8.9) K/mcL Lymphocytes # 3.1 (0.6-4.6) K/mcL Platelet Estimate Increased H (Normal) Sodium 135 L (136-145) mEq/L Potassium 4.2 (3.5-4.5) mEq/L Chloride 87 L (98-109) mEq/L Carbon Dioxide 20 (19-29) mEq/L BUN 35 H (7-20) mg/dL Creatinine 4.70 H (0.57-1.11) mg/dL Est GFR ( Amer) 11 L (> 60) Est GFR (Non-Af Amer) 9 L (> 60) BUN/Creatinine Ratio 7 (6-26) Glucose 484 H (70-99) mg/dL Calculated Osmolality 309 H (280-300) Lactic Acid (0.5-2.2) mmol/L Calcium 11.0 H (8.6-10.8) mg/dL Lipase 26 (8-78) Units/L Urine Color Dark Yellow (Yellow) Urine Clarity Turbid A (Clear) Urine pH 5.0 (5.0-8.0) pH Units Ur Specific [place] 1.024 (1.010-1.025) Urine Protein Negative (Neg-Trace) mg/dL Urine Glucose (UA) 250 H (Normal) mg/dL Urine Ketones Trace H (Negative) mg/dL Urine Blood Negative (Negative) Urine Nitrite Negative (Negative) Urine Bilirubin Moderate H (Negative) Urine Urobilinogen Normal (Normal) mg/dL Ur Leukocyte Esterase Negative (Negative) Urine Microscopic RBC 0-3 (0-3) per hpf Urine Microscopic WBC 5-15 H (0-3) per hpf Ur Squamous Epith Cells Many H (None-Few) per lpf Urine Bacteria None Seen (None-Few) per hpf Ur Culture Indicated? YES A (NO) 03/04/17 Range/Units 16:12 WBC (4.3-11.1) K/mcL RBC (3.82-4.97) M/mcL Hgb (11.5-15.4) g/dL Hct (35.3-44.9) % MCV (83.0-100.0) fL MCH (28.0-33.3) pg MCHC (31.6-35.5) g/dL RDW (11.5-14.5) % Plt Count (140-400) K/mcL MPV (9.4-12.4) fL Seg Neutrophils % % Band Neutrophils % (0-4) % Lymphocytes % % Neutrophils # (1.6-8.9) K/mcL Lymphocytes # (0.6-4.6) K/mcL Platelet Estimate (Normal) Sodium (136-145) mEq/L Potassium (3.5-4.5) mEq/L Chloride (98-109) mEq/L Carbon Dioxide (19-29) mEq/L BUN (7-20) mg/dL Creatinine (0.57-1.11) mg/dL Est GFR ( Amer) (> 60) Est GFR (Non-Af Amer) (> 60) BUN/Creatinine Ratio (6-26) Glucose (70-99) mg/dL Calculated Osmolality (280-300) Lactic Acid 2.5 H (0.5-2.2) mmol/L Calcium (8.6-10.8) mg/dL Lipase (8-78) Units/L Urine Color (Yellow) Urine Clarity (Clear) Urine pH (5.0-8.0) pH Units Ur Specific [place] (1.010-1.025) Urine Protein (Neg-Trace) mg/dL Urine Glucose (UA) (Normal) mg/dL Urine Ketones (Negative) mg/dL Urine Blood (Negative) Urine Nitrite (Negative) Urine Bilirubin (Negative) Urine Urobilinogen (Normal) mg/dL Ur Leukocyte Esterase (Negative) Urine Microscopic RBC (0-3) per hpf Urine Microscopic WBC (0-3) per hpf Ur Squamous Epith Cells (None-Few) per lpf Urine Bacteria (None-Few) per hpf Ur Culture Indicated? (NO) - EKG Data EKG attestation: Yes I reviewed and interpreted this EKG. EKG shows normal: sinus rhythm Rate: normal Rhythm: NSR Interpretation: no acute changes
[2017-03-04 15:47] LABS: Hemoglobin 18.1 g/dL (11.5-15.4); Mean Corpuscular HGB Conc 35.5 g/dL (31.6-35.5); Mean Corpuscular Volume 81.7 fL (83.0-100.0); Mean Platelet Volume 10.8 fL (9.4-12.4); Platelet Count 573 K/mcL (140-400); Red Blood Count 6.24 M/mcL (3.82-4.97); Red Cell Distribution Width 12.5 % (11.5-14.5)
[2017-03-04 16:12] LABS: Lymphocytes # 3.1 K/mcL (0.6-4.6); Neutrophils # 36.2 K/mcL (1.6-8.9)
[2017-03-04 16:13] LABS: Platelet Estimate Increased (Normal)
[2017-03-04 16:17] LABS: Bilirubin,Urine Moderate (Negative); Blood,Urine Negative (Negative); Clarity,Urine Turbid (Clear); Color,Urine Dark Yellow (Yellow); Glucose,Urine (UA) 250 mg/dL (Normal); Ketones,Urine Trace mg/dL (Negative); Leukocyte Esterase,Urine Negative (Negative); Nitrite,Urine Negative (Negative); Protein,Urine Negative (Neg-Trace); Specific Gravity,Urine 1.024 (1.010-1.025); Urobilinogen,Urine Normal (Normal)
[2017-03-04 16:19] LABS: Bacteria,Urine None Seen per hpf (None-Few); RBC,Urine 0-3 per hpf (0-3); Squamous Epithelial Cell,Urine Many per lpf (None-Few)
[2017-03-04 16:50] LABS: Potassium 4.2 mEq/L (3.5-4.5)
[2017-03-04] MEDS ORDERED: Levofloxacin 500 MG/100 ML 500 MG/100 ML BAG IVPB ONE (16:59)
[2017-03-04] MEDS: 0.9 % Sodium Chloride 1,000 ML IVC SCH (21:58)
[2017-03-04] MEDS ORDERED: Naloxone 0.4 MG/ML INJ IVP PRN (22:33)
[2017-03-04] MEDS ORDERED: *HR* Morphine 2 MG/ML SYRINGE IVP PRN (22:33)
--- NOTE | 2017-03-04 22:33 | Internal Med History&Physical ---
Date of Encounter: 03/04/17 Time of Encounter: 22:00 Assessment and Plan (1) Sepsis Current visit: Yes Status: Acute Sepsis, present on admission - likely secondary to Acute Gastroenteritis - causing abdominal pain, nausea and diarrhea - with EARL Continue empiric IV Zosyn, IV Vancomycin, IV fluids, IV Zofran, IV Protonix Cultures - pending UA - negative nitrite, negative leukocyte esterase WBC - 39.3 Lactic acid - 2.5 Chest x-ray - no acute process CT abdomen and pelvis - no acute abnormality EKG - sinus rhythm with no acute ST-T changes Cardiac telemetry, strict intake output, labs in a.m., monitor closely Qualifiers: Sepsis type: sepsis due to unspecified organism Qualified Code(s): A41.9 - Sepsis, unspecified organism (2) Acute kidney injury Current visit: Yes Status: Acute Severe Acute Kidney Injury - likely secondary to sepsis and dehydration/volume depletion Continue IV fluids, monitor urine output, repeat labs in a.m. 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 Staton is a 61 year old female with past medical history arthritis, COPD, diabetes, GERD, anxiety, depression and gastritis. Patient presents to the ED with complaints of abdominal pain, vomiting and diarrhea. Examined in the room. Patient is awake and alert. Not in any distress. Able to provide all history. No family members at bedside. Patient states abdominal pain started about 24 hours prior to arrival. She complains of several episodes of vomiting and persistent nausea. She states she was unable to keep any food or liquid down. She also complains of several episodes of diarrhea which is now improved. She states it is loose watery stools that she had. She denies blood in the stool or blood in emesis. Patient is not similar symptoms and required admission in the past. She has had EGD which revealed esophagitis, gastritis and duodenitis. She states her abdominal pain is dull and cramping. Rates it 6 out of 10, and seems to have improved now. Denies fever, denies chest pain, denies shortness of breath or headache or dizziness or cough. No aggravating or alleviating factors. No other associated symptoms. Initial workup in the ED is significant for severe acute kidney injury, significantly elevated white count and hyperglycemia. CT of the abdomen and pelvis does not show any acute abnormality. Patient will need IV fluids and IV antibiotics. Patient has been explained about her condition and plan of care. She understood and agreed. No unanswered questions. CODE STATUS full code. Past Med Surg Social Fam HX - Past Medical History Medical history: arthritis, COPD, diabetes, GERD Psychiatric history: anxiety, depression - Past Surgical History Surgical History: breast surgery - Social History Smoking Status: Current every day smoker Packs per day: 1 Smokeless Tobacco Status: No Alcohol use: none Drug use: none - Family History Father Living Status: Hx Family Cancer: Yes (lymphoma) Sister Living Status: Hx Family Cancer: Yes (breast cancer) Internal Medicine - H&P: Meds Cyclobenzaprine [Flexeril] 10 mg PO TID PRN 10/12/15 [History] Insulin LISPRO [Humalog Kwikpen U-100] 12 unit SQ TID 11/30/15 [History] Gabapentin [Neurontin] 600 mg PO TID 07/01/16 [History] Omeprazole 40 mg PO HS 07/01/16 [History] Insulin DETEMIR [Levemir] 45 unit SQ DAILY 03/04/17 [History] 3 Allergy/AdvReac Type Severity Reaction Status Date / Time cephalexin [From Keflex] Allergy Difficulty Verified 03/04/17 15:00 Breathing All Systems PM: A 10-system review of systems was performed and is negative for pertinent findings except as documented above in the HPI. - Constitutional Constitutional: fatigue, weakness, no fever(s) - EENT Eyes: no blurry vision - Cardiovascular Cardiovascular ROS IM: no chest pain, no diaphoresis, no dyspnea, no dyspnea on exertion, no edema, no lightheadedness, no orthopnea, no palpitations, no syncope - Respiratory Respiratory: no cough, no dyspnea, no hemoptysis, no dyspnea on exertion, no wheezing, no chest congestion - Gastrointestinal Gastrointestinal: abdominal pain, bloating, cramping, diarrhea, heartburn, loose stools, nausea, vomiting, no hematemesis, no hematochezia, no melena - Genitourinary Genitourinary: no dysuria Additional comments: Decreased urine output - Neurological Neurological ROS: no abnormal gait, no confusion, no dizziness, no focal weakness, no loss of vision, no numbness, no tingling - Constitutional Vitals: Temp Pulse Resp BP Pulse Ox 97.7 F 80 18 122/73 91 03/04/17 20:43 03/04/17 21:00 03/04/17 20:43 03/04/17 20:43 03/04/17 21:00 General appearance: Present: cooperative, A&O X 3, pleasant, no acute distress, answers questions appropriately - Head Head exam: Present: atraumatic - Eye Eye exam: Present: EOMI - ENT ENT exam: Present: mucous membranes dry - Respiratory Respiratory exam: Present: CTAB. Absent: accessory muscle use, chest wall tenderness, rales, rhonchi, wheezes, tachypnea - Cardiovascular Cardiovascular exam: Present: RRR, +S1, +S2 - GI/Abdominal GI/Abdominal exam: Present: soft, tenderness (Epigastric tenderness ). Absent: distended, firm, guarding, rebound - Extremities Exam Extremities exam: Present: radial pulses palpable and symmetrical. Absent: calf tenderness, cyanotic, pedal edema - Neurological Exam Neurological exam: Present: alert, oriented X3, no focal deficits. Absent: facial droop, speech deficit Internal Med - H&P Results - Labs CBC & Chem 7: 03/04/17 15:20 03/04/17 15:20
[2017-03-04] MEDS ORDERED: *HR* Dextrose 50 % in Water (Syg) 50 ML SYRINGE IVP PRN (22:37)
[2017-03-04] MEDS ORDERED: Dextrose Gel 15 GM PO PRN ×2 (22:37)
[2017-03-04] MEDS ORDERED: D5% in Water 1,000 ML IVC PRN (22:37)
[2017-03-04] MEDS ORDERED: Famotidine 20 MG/2 ML VIAL IVP SCH (22:45)
[2017-03-04] MEDS ORDERED: LEVOFLOXACIN 250 MG/50 ML IVPB ONE (23:00)
[2017-03-04 23:30] LABS: Prothrombin Time 10.8 Seconds (9.4-12.1)
[2017-03-04] MEDS: Acetaminophen 325 MG TABLET PO PRN (23:55)
[2017-03-05] MEDS ORDERED: Vancomycin 1,250 MG in D5% in Water 250 ML IVPB SCH (01:00)
[2017-03-05 03:26] LABS: Basophils % 0.2 %; Eosinophils % 0.1 %; Mean Corpuscular Volume 85.2 fL (83.0-100.0); Mean Platelet Volume 9.9 fL (9.4-12.4)
[2017-03-05 03:28] LABS: Basophils # 0.1 K/mcL (0.0-0.2); Hematocrit 43.9 % (35.3-44.9); Hemoglobin 14.8 g/dL (11.5-15.4); Immature Granulocytes % 1.4 % (0-4); Lymphocytes # 1.9 K/mcL (0.6-4.6); Mean Corpuscular HGB Conc 33.7 g/dL (31.6-35.5); Mean Corpuscular Hemoglobin 28.7 pg (28.0-33.3); Monocytes # 2.2 K/mcL (0.0-1.3); Monocytes % 6.8 %; Neutrophils # 27.1 K/mcL (1.6-8.9); Platelet Count 362 K/mcL (140-400); Red Blood Count 5.15 M/mcL (3.82-4.97); Red Cell Distribution Width 12.7 % (11.5-14.5); Segmented Neutrophils % 85.5 %
[2017-03-05 03:41] LABS: Alanine Aminotransferase 19 Units/L (0-55); Albumin 3.6 g/dL (3.5-5.0); Albumin/Globulin Ratio 1.1 (1.1-2.2); Alkaline Phosphatase 62 Units/L (38-126); Aspartate Amino Transferase 27 Units/L (5-34); BUN/Creatinine Ratio 13 (6-26); Bilirubin,Total 0.5 mg/dL (0.2-1.2); Blood Urea Nitrogen 46 mg/dL (7-20); Carbon Dioxide 23 mEq/L (19-29); Chloride 98 mEq/L (98-109); Chol/HDL Ratio 7.1 (0-4.9); Cholesterol 177 mg/dL (< 200); Globulin 3.4 g/dL (2.4-3.5); Glucose 192 mg/dL (70-99); HDL Cholesterol 25 mg/dL (40-59); Osmolality,Calculated 297 (280-300); Potassium 4.1 mEq/L (3.5-4.5); Sodium 135 mEq/L (136-145); Triglycerides 430 mg/dL (< 150); eGFR For African Americans 16 (> 60); eGFR For Non-African Americans 13 (> 60)
[2017-03-05 03:42] LABS: Calcium 8.7 mg/dL (8.6-10.8)
[2017-03-05 03:53] LABS: Large Platelets Present (Not Present); Platelet Estimate Normal (Normal); Reactive Lymphocytes Present (Not Present)
[2017-03-05 03:54] LABS: Hemoglobin A1C 8.3 %
[2017-03-05] MEDS: *HR* Heparin 5,000 UNIT/ML VIAL SQ SCH ×2 (05:39→17:19)
[2017-03-05] MEDS: Insulin LISPRO 300 UNITS/3 ML VIAL SQ SCH ×6 (05:41→20:33)
[2017-03-05] MEDS ORDERED: Vancomycin 1,000 MG in D5% in Water 250 ML IVPB SCH (06:00)
[2017-03-05] MEDS: 0.9 % Sodium Chloride 1,000 ML IVC SCH ×3 (06:43→23:29)
[2017-03-05] MEDS: Pantoprazole 40 MG VIAL IVP SCH (08:30)
[2017-03-05] MEDS ORDERED: NON-FORMULARY MEDICATION 1 EACH EACH (Insulin Detemir 45 UNIT) SQ SCH (09:00)
[2017-03-05] MEDS ORDERED: Insulin DETEMIR 100 UNIT/ML X5UNITS SQ SCH (09:00)
--- NOTE | 2017-03-05 09:35 | Nephrology Consult Note ---
Date of Encounter: 03/05/17 Time of Encounter: 09:00 Assessment and Plan (1) Acute kidney injury Current Visit: Yes Status: Acute Non-oliguric EARL consistent with severe pre-renal injury. I noted that she's has at least one other episode of severe prerenal EARL in 2016 (GFR was about 15 upon presentation but improved to 54 and then >60) that was linked to her N/V. She said that she's never seen another inspector assembly. I do not suspect any post- renal contribution since the noncontrast CT was negative for hydronephrosis and no renal stones. I recommend continue IVF for further volume expansion. Thus far she is responding and her SCr is trending better. She has no uremic symptoms and was A/ Ox3 on exam, plus no hyperkalemia or severe acidosis; so, I do not recommend starting HD at this time. Recommend continuing to follow a renal protective and conservative strategy; to trend I/Os, BMP and avoidance of nephrotoxins as able. I spent about 45 min involved in chart research/review, interview, examination, E/M and documentation for this high risk patient d/t the severity of her EARL. Thank you for consulting the [facility]. Will follow with you. (2) Nausea & vomiting Current Visit: Yes Status: Acute As per primary and GI Qualifiers: Vomiting type: unspecified Vomiting Intractability: unspecified Qualified Code(s): R11.2 - Nausea with vomiting, unspecified (3) Dehydration Current Visit: No Status: Acute See above (4) Volume depletion Current Visit: Yes Status: Acute See above History of Present Illness - Reason for Consult Consult date: 03/04/17 Acute Kidney Injury Requesting physician: Blane Ryan - Chief Complaint EARL from N/V - History of Present Illness Ester Staton is a very pleasant 61 y/o WF with a pmh of gastrointestinal issues (follows with [facility]), several prior episodes of N/V with EARL and et al who presented with severe N/V and severe volume depletion. She voiced that she has no prior inspector assembly. In the past, she has several episodes of N/V even with associated EARL, she and the record reported. Previously was taking routine Aleve , she reported but stopped it about 1 year ago. No prior CABG. No prior gout but she thinks one time in the past she may have passed a renal stone in the form of gravel. She lives near [place], [place], and her PCP is Dr. Abraham Toth. No FHx of ESRD Past Med Surg Social Fam HX - Past Medical History Medical history: arthritis, COPD, diabetes, GERD Psychiatric history: anxiety, depression - Past Surgical History Surgical History: breast surgery - Social History Smoking Status: Current every day smoker Packs per day: 1 Smokeless Tobacco Status: No Alcohol use: none Drug use: none - Family History Father Living Status: Hx Family Cancer: Yes (lymphoma) Sister Living Status: Hx Family Cancer: Yes (breast cancer) Medications and Allergies Cyclobenzaprine [Flexeril] 10 mg PO TID PRN 10/12/15 [History] Insulin LISPRO [Humalog Kwikpen U-100] 12 unit SQ TID 11/30/15 [History] Gabapentin [Neurontin] 600 mg PO TID 07/01/16 [History] Omeprazole 40 mg PO HS 07/01/16 [History] Insulin DETEMIR [Levemir] 45 unit SQ DAILY 03/04/17 [History] 3 Allergy/AdvReac Type Severity Reaction Status Date / Time cephalexin [From Keflex] Allergy Difficulty Verified 03/04/17 15:00 Breathing Review of Systems All Systems: reviewed and no additional remarkable complaints except as stated Exam - Vital Signs Vital signs: Initial Vital Signs Temp Pulse Resp BP Pulse Ox 97.5 F L 112 18 110/66 93 03/04/17 14:57 03/04/17 14:57 03/04/17 14:57 03/04/17 14:57 03/04/17 14:57 Vital Signs - Last 8 Hours Temp Pulse Resp BP Pulse Ox 03/05/17 08:35 98 F 64 16 114/59 100 03/05/17 04:06 68 03/05/17 03:43 98 F 67 18 135/70 100 Intake and Output 03/04/17 03/05/17 03/05/17 23:59 07:59 15:59 Intake Total 1530 / 1530 Output Total 300 / 300 Balance 1230 / 1230 Intake: IV Fluids 1400 / 1400 0.9 % Sodium Chloride 1,000 ML 1000 / 1000 @ 125 mls/hr IVC .Q8H [facility] Rx#: [id number] Levaquin Premix 250 MG/50 ML 50 / 50 250 mg In 50 ml @ 50 mls/hr IVPB ONCE ONE Rx#:[id number] Levaquin Premix 500mg/100mL 500 100 / 100 mg In 100 ml @ 100 mls/hr IVPB ONCE ONE Rx#:[id number] Vancocin 1,250 MG In Dextrose 5 250 / 250 % 250 ML @ 166.67 mls/hr IVPB Q24H [facility] Rx#:[id number] Oral 130 / 130 Output: Urine 300 / 300 Other: Weight 79.7 kg Blood Glucose* 134 Patient Weight 03/05/17 23:59 Weight 79.7 kg - General Appearance General appearance: well-developed, well-nourished, appears started age EENT: ATNC, PERRL, mucous membranes moist Neck: no JVD, supple Respiratory: clear Cardiology: no murmurs, no edema, regular rate, regular rhythm, normal S1, normal S2 Gastrointestinal: normoactive bowel sounds, no tenderness, no guarding, obese Integumentary: no rash, warm and dry Neurologic: no focal deficit, no asterixis, alert and oriented x3 Musculoskeletal: no deformities, no erythema, no cyanosis Psychiatric: mood/affect appropriate, cooperative Results - Lab Results 03/05/17 03:18 03/05/17 03:18 Most recent lab results Calcium 8.7 mg/dL (8.6-10.8) D 03/05/17 03:18 Magnesium 1.9 mg/dL (1.6-2.6) 03/04/17 22:56 I reviewed labs, med lists, vitals, imaging, progress notes. Consult Discharge Plan - Plan Referrals: Abraham Toth DO [Primary Care Provider] -
--- NOTE | 2017-03-05 10:42 | Internal Med Progress Note ---
Date of Encounter: 03/05/17 Time of Encounter: 10:40 - Assessment and plan (1) Acute kidney injury Current Visit: Yes Status: Acute Assessment and plan: Acute renal failure likely secondary to sepsis and severe dehydration from acute gastroenteritis Nephrology following Continue IV fluids (2) Sepsis Current Visit: Yes Status: Acute Assessment and plan: Sepsis secondary to acute gastroenteritis Discontinue vancomycin IV, continue Levaquin and start Flagyl Continue IV fluids, sent GI panel May advance diet low-fat low lactose low residue Qualifiers: Sepsis type: sepsis due to unspecified organism Qualified Code(s): A41.9 - Sepsis, unspecified organism (3) Leukocytosis Current Visit: Yes Status: Acute Assessment and plan: Likely secondary to sepsis Qualifiers: Leukocytosis type: unspecified Qualified Code(s): D72.829 - Elevated white blood cell count, unspecified (4) Nausea and vomiting in adult patient Current Visit: No Status: Acute (5) Diabetes Current Visit: No Status: Chronic Assessment and plan: Continue insulin sliding scale Decrease dose of Levemir from 45 units down to 20 units due to acute renal failure Qualifiers: Diabetes mellitus type: type 2 Diabetes mellitus complication status: with unspecified complications Diabetes mellitus fpc insulin use: unspecified superintendent marine oil terminal insulin use status Qualified Code(s): E11.8 - Type 2 diabetes mellitus with unspecified complications (6) Diarrhea Current Visit: No Status: Acute Qualifiers: Diarrhea type: unspecified type Qualified Code(s): R19.7 - Diarrhea, unspecified (7) Dehydration Current Visit: No Status: Acute - Subjective Interval history: Denies any nausea or vomiting at the moment, has not had any bowel movement since yesterday, denies any abdominal cramping, feels very thirsty, denies any chest or shortness of breath, no fevers overnight - Constitutional Vitals: Temp Pulse Resp BP Pulse Ox 98 F 64 16 114/59 100 03/05/17 08:35 03/05/17 08:35 03/05/17 08:35 03/05/17 08:35 03/05/17 08:35 General appearance: Present: cooperative, A&O X 3, pleasant, no acute distress, answers questions appropriately - Head Head exam: Present: atraumatic, normocephalic - Eye Eye exam: Present: PERRL, conjuntiva pink, sclera anicteric Pupils: Present: PERRL - Neck Neck exam general surgery: Present: supple, trachea midline. Absent: lymphadenopathy - Respiratory Respiratory exam: Present: CTAB. Absent: accessory muscle use, rales, rhonchi, wheezes - Cardiovascular Cardiovascular exam: Present: RRR, +S1, +S2. Absent: diastolic murmur, gallop, rubs, systolic murmur - GI/Abdominal GI/Abdominal exam: Present: normal bowel sounds, soft, no peritoneal signs. Absent: distended, tenderness - Extremities Exam Extremities exam: Present: warm, radial pulses palpable and symmetrical. Absent : calf tenderness, cyanotic, pedal edema - Neurological Exam Neurological exam: Present: CN II-XII intact, oriented X3, no focal deficits. Absent: pronater drift, facial droop, speech deficit - Skin Skin exam: Present: dry, intact Internal Medicine: Result - Labs CBC & Chem 7: 03/05/17 03:18 03/05/17 03:18 Labs: Short CBC 03/05/17 Range/Units 03:18 WBC 31.7 H* (4.3-11.1) K/mcL Hgb 14.8 D (11.5-15.4) g/dL Hct 43.9 (35.3-44.9) % Plt Count 362 (140-400) K/mcL Neutrophils # 27.1 H (1.6-8.9) K/mcL BMP 03/05/17 03:18 Sodium 135 L Potassium 4.1 Chloride 98 Carbon Dioxide 23 BUN 46 H D Creatinine 3.55 H Glucose 192 H Calcium 8.7 D Liver Function 03/05/17 Range/Units 03:18 Total Bilirubin 0.5 (0.2-1.2) mg/dL AST 27 (5-34) Units/L ALT 19 (0-55) Units/L Alkaline Phosphatase 62 (38-126) Units/L Albumin 3.6 (3.5-5.0) g/dL - ABG Interpretation ABG results: PT/INR, D-dimer PT 10.8 Seconds (9.4-12.1) 03/04/17 15:20 Consult Discharge Plan - Plan Referrals: Abraham Toth DO [Primary Care Provider] -
[2017-03-05] MEDS: Insulin DETEMIR 100 UNIT/ML X5UNITS SQ SCH ×2 (12:19→12:25)
[2017-03-05] MEDS: Acetaminophen 325 MG TABLET PO PRN ×2 (15:34→23:32)
[2017-03-05] MEDS: MetroNIDAZOLE 500 MG/100 ML 500 MG/100 ML BAG IVPB SCH ×2 (15:36→23:29)
--- NOTE | 2017-03-05 18:51 | Electrocardiograph Report ---
[address] [address] Test Date: 2017-03-04 Pat Name: Ester Staton Department: 102 Room: 2NE24 Gender: F Extension Service Specialist In Charge: [facility] : 1955 Requested By: Sherwin Reyna Order Number: [id number] Reading MD: Miguel Marcelo MD Measurements Intervals [place] Rate: 91 P: 71 [place]: 156 QRS: -26 QRSD: 91 T: 78 QT: 363 QTc: 412 Interpretive Statements SINUS RHYTHM RIGHT ATRIAL ENLARGEMENT LEFT ATRIAL ENLARGEMENT Electronically Signed On 03-05-2017 18:49:45 EDT by Miguel Marcelo MD
[2017-03-06 02:11] LABS: Hematocrit 33.9 % (35.3-44.9); Mean Corpuscular HGB Conc 33.9 g/dL (31.6-35.5); Mean Corpuscular Hemoglobin 29.4 pg (28.0-33.3); Mean Corpuscular Volume 86.7 fL (83.0-100.0); Platelet Count 186 K/mcL (140-400); Red Blood Count 3.91 M/mcL (3.82-4.97); Red Cell Distribution Width 12.8 % (11.5-14.5)
[2017-03-06 02:20] LABS: Hemoglobin 11.5 g/dL (11.5-15.4)
[2017-03-06 02:33] LABS: Magnesium 1.5 mg/dL (1.6-2.6); Phosphorous 2.4 mg/dL (2.3-4.7); Uric Acid 5.2 mg/dL (2.6-6.0)
[2017-03-06 02:35] LABS: Calcium 8.3 mg/dL (8.6-10.8); Potassium 3.4 mEq/L (3.5-4.5)
[2017-03-06] MEDS: *HR* Heparin 5,000 UNIT/ML VIAL SQ SCH ×2 (05:14→17:44)
[2017-03-06] MEDS: Insulin LISPRO 300 UNITS/3 ML VIAL SQ SCH ×4 (08:35→21:22)
[2017-03-06] MEDS: 0.9 % Sodium Chloride 1,000 ML IVC SCH ×2 (08:42)
[2017-03-06] MEDS: MetroNIDAZOLE 500 MG/100 ML 500 MG/100 ML BAG IVPB SCH ×2 (08:43→16:05)
[2017-03-06] MEDS: Pantoprazole 40 MG VIAL IVP SCH (08:44)
[2017-03-06] MEDS: Insulin DETEMIR 100 UNIT/ML X5UNITS SQ SCH (09:21)
--- NOTE | 2017-03-06 09:54 | Nephrology Progress Note ---
Date of Encounter: 03/06/17 Time of Encounter: 09:25 - Assessment and Plan (1) Acute kidney injury Current Visit: Yes Status: Acute Non-oliguric EARL from volume depletion / dehydration that was secondary to cyclical N/V. I counseled her about outpatient mgt options such as aiming to consume about 64 oz of fluids, especially water, per day. IVF has helped correct the volume depletion with her SCr rapidly improving and I would expect her renal function to rebound back to WNL. This pattern of dehydration with EARL has actually occurred a few times in the last 1-2 years for her as documented in the [facility] record; so, I recommend she follow up with nephrology on an outpatient basis. She lives in [place], [place], and I have a [place] based [facility] clinic (though it's booked out for about 6 months); so to help more timely assess her, I'd at first have her see me in my local [place] office in about 4-6 weeks. Please check a BMP in about 1-2 weeks after hospitalization. The volume expansion has induced a very mild hypokalemia, which should easily resolve upon completing/stopping IVF; so, I have not recommended adding KCl supplementation unless if she becomes symptomatic or if a trend of hypokalemia develops. This is probably a dilutional effect seen from the IVF. Will sign-off. Thank you for consulting the [facility] group. (2) Nausea & vomiting Current Visit: Yes Status: Acute Improved. As per primary; consider offering options to help prevent recurrence. Qualifiers: Vomiting type: unspecified Vomiting Intractability: unspecified Qualified Code(s): R11.2 - Nausea with vomiting, unspecified (3) Dehydration Current Visit: No Status: Acute Improved. See above. (4) Volume depletion Current Visit: Yes Status: Acute Improved. See above. Subjective Principal diagnosis: EARL from volume depletion d/t cyclical N/V Interval history: Pt was s/e earlier today. She did not affirm N/V at present and reported feeling hungry even. She has continued to receive IVF overnight but has not developed LE swelling she said (other than some mild IV site swelling, which was not too bothersome she reported). She lives in the [place], [place], area she said. Objective - Vital Signs Vital signs: Vital Signs Temp Pulse Resp BP Pulse Ox 03/06/17 07:56 97.9 F 61 18 135/60 96 03/06/17 05:06 98.6 F 56 20 135/60 98 03/06/17 04:23 94 03/05/17 23:40 98.2 F 60 19 131/62 94 03/05/17 18:45 98.0 F 64 16 117/54 96 03/05/17 15:44 60 03/05/17 15:42 97.9 F 63 16 120/52 98 03/05/17 12:32 98 F 61 16 112/51 99 Intake and Output 03/05/17 03/06/17 03/06/17 23:59 07:59 15:59 Intake Total 1100 / 1100 100 / 100 240 / 240 Balance 1100 / 1100 100 / 100 240 / 240 Intake: IV Fluids 1100 / 1100 100 / 100 0 / 0 0.9 % Sodium Chloride 1,000 ML 1000 / 1000 0 / 0 @ 125 mls/hr IVC .Q8H [facility] Rx#: [id number] Flagyl Premix 500 MG/100 ML 500 100 / 100 100 / 100 mg In 100 ml @ 100 mls/hr IVPB Q8HR [facility] Rx#:[id number] Oral 240 / 240 Other: Meal Breakfast Percent of Meal Consumed 100% Blood Glucose* 109 118 131 - General Appearance General appearance: Present: well-developed, well-nourished, appears started age EENT: Present: ATNC, PERRL, mucous membranes moist Neck: Present: supple Respiratory: Present: clear Cardiology: Present: no edema, regular rate, regular rhythm, normal S1, normal S2 Gastrointestinal: Present: normoactive bowel sounds, no tenderness, no guarding , obese Integumentary: Present: no rash, warm and dry Neurologic: Present: no focal deficit, no asterixis, alert and oriented x3 Musculoskeletal: Present: no deformities, no erythema, no cyanosis Psychiatric: Present: mood/affect appropriate, cooperative - Lab 03/06/17 01:30 03/06/17 01:30 Most recent lab results Calcium 8.3 mg/dL (8.6-10.8) L 03/06/17 01:30 Phosphorus 2.4 mg/dL (2.3-4.7) 03/06/17 01:30 Magnesium 1.5 mg/dL (1.6-2.6) L 03/06/17 01:30 Consult Discharge Plan - Plan Referrals: Abraham Toth DO [Primary Care Provider] -
--- NOTE | 2017-03-06 09:59 | Internal Med Progress Note ---
<DominicwaiElena cisneros - Last Filed: 03/06/17 10:03> Date of Encounter: 03/06/17 Time of Encounter: 09:59 - Assessment and plan (1) Acute kidney injury Current Visit: Yes Status: Acute Assessment and plan: Acute renal failure likely secondary to sepsis and severe dehydration from acute gastroenteritis Nephrology following Continue IV fluids -Mild hypokalemia at 3.4. Likely dilutional from IV fluids. No indication for oral potassium supplementation at this point. -Nephrology to follow the patient on an outpatient basis. Patient needs an outpatient BMP follow-up in 1-2 weeks after discharge from the hospital. (2) Sepsis Current Visit: Yes Status: Acute Assessment and plan: Sepsis secondary to acute gastroenteritis Day 2 of Flagyl, day 3 of Levaquin. Follow-up GI panel May advance diet low-fat low lactose low residue Qualifiers: Sepsis type: sepsis due to unspecified organism Qualified Code(s): A41.9 - Sepsis, unspecified organism (3) Leukocytosis Current Visit: Yes Status: Acute Assessment and plan: Likely secondary to sepsis. Rapidly correcting down to 14.8 from 31.7. -We will monitor. -Day 2 of Flagyl, day 3 of Levaquin. Qualifiers: Leukocytosis type: unspecified Qualified Code(s): D72.829 - Elevated white blood cell count, unspecified (4) Nausea & vomiting Current Visit: Yes Status: Acute Assessment and plan: Patient's nausea and vomiting is well controlled with Zofran. Qualifiers: Vomiting type: unspecified Vomiting Intractability: unspecified Qualified Code(s): R11.2 - Nausea with vomiting, unspecified (5) Dehydration Current Visit: No Status: Acute Assessment and plan: Patient has been adequately hydrated with IV fluids as evidenced I a creatinine dropped from 4.7 on admission to 1.17 today. -Continue with maintenance fluids. (6) Diarrhea Current Visit: No Status: Acute Assessment and plan: Follow-up GI panel Qualifiers: Diarrhea type: unspecified type Qualified Code(s): R19.7 - Diarrhea, unspecified (7) Diabetes Current Visit: No Status: Chronic Assessment and plan: Continue insulin sliding scale Decreased dose of Levemir from 45 units down to 20 units due to acute renal failure Qualifiers: Diabetes mellitus type: type 2 Diabetes mellitus complication status: with unspecified complications Diabetes mellitus prison insulin use: unspecified poultry vaccinator insulin use status Qualified Code(s): E11.8 - Type 2 diabetes mellitus with unspecified complications (8) DVT prophylaxis Current Visit: Yes Status: Acute - Subjective Interval history: Patient is resting comfortably this morning. She denies any nausea or vomiting. She is still having some diarrhea, however, she feels that has improved. She denies any dysuria, hematuria, hematochezia, melena, or blood or mucus in her stool. - Constitutional Vitals: Temp Pulse Resp BP Pulse Ox 97.9 F 61 18 135/60 96 03/06/17 07:56 03/06/17 07:56 03/06/17 07:56 03/06/17 07:56 03/06/17 07:56 General appearance: Present: cooperative, A&O X 3, pleasant, no acute distress, answers questions appropriately - Respiratory Respiratory exam: Present: CTAB. Absent: accessory muscle use, rales, rhonchi, wheezes - Cardiovascular Cardiovascular exam: Present: RRR, +S1, +S2. Absent: diastolic murmur, gallop, rubs, systolic murmur - GI/Abdominal GI/Abdominal exam: Present: normal bowel sounds, soft, no peritoneal signs. Absent: distended, tenderness - Extremities Exam Extremities exam: Present: warm, radial pulses palpable and symmetrical. Absent : calf tenderness, cyanotic, pedal edema Internal Medicine: Result - Labs CBC & Chem 7: 03/06/17 01:30 03/06/17 01:30 Labs: Short CBC 03/06/17 Range/Units 01:30 WBC 14.8 H D (4.3-11.1) K/mcL Hgb 11.5 D (11.5-15.4) g/dL Hct 33.9 L (35.3-44.9) % Plt Count 186 (140-400) K/mcL BMP 03/06/17 01:30 Sodium 137 Potassium 3.4 L Chloride 107 Carbon Dioxide 22 BUN 28 H D Creatinine 1.17 H D Glucose 124 H Calcium 8.3 L - ABG Interpretation ABG results: PT/INR, D-dimer PT 10.8 Seconds (9.4-12.1) 03/04/17 15:20 Consult Discharge Plan - Plan Referrals: Ball,Abraham Alexx, DO [Primary Care Provider] - <Rodriguez Mayo H - Last Filed: 03/06/17 11:10> Date of Encounter: 03/06/17 - Assessment and plan (1) Acute kidney injury Current Visit: Yes Status: Acute (2) Sepsis Current Visit: Yes Status: Acute Qualifiers: Sepsis type: sepsis due to unspecified organism Qualified Code(s): A41.9 - Sepsis, unspecified organism (3) Leukocytosis Current Visit: Yes Status: Acute Qualifiers: Leukocytosis type: unspecified Qualified Code(s): D72.829 - Elevated white blood cell count, unspecified (4) Nausea and vomiting in adult patient Current Visit: No Status: Acute (5) Diabetes Current Visit: No Status: Chronic Qualifiers: Diabetes mellitus type: type 2 Diabetes mellitus complication status: with unspecified complications Diabetes mellitus prison insulin use: unspecified poultry vaccinator insulin use status Qualified Code(s): E11.8 - Type 2 diabetes mellitus with unspecified complications (6) Diarrhea Current Visit: No Status: Acute Qualifiers: Diarrhea type: unspecified type Qualified Code(s): R19.7 - Diarrhea, unspecified (7) Dehydration Current Visit: No Status: Acute - Constitutional Vitals: Temp Pulse Resp BP Pulse Ox 97.9 F 61 18 135/60 96 03/06/17 07:56 03/06/17 07:56 03/06/17 07:56 03/06/17 07:56 03/06/17 07:56 Internal Medicine: Result - Labs CBC & Chem 7: 03/06/17 01:30 03/06/17 01:30 Labs: Short CBC 03/06/17 Range/Units 01:30 WBC 14.8 H D (4.3-11.1) K/mcL Hgb 11.5 D (11.5-15.4) g/dL Hct 33.9 L (35.3-44.9) % Plt Count 186 (140-400) K/mcL BMP 03/06/17 01:30 Sodium 137 Potassium 3.4 L Chloride 107 Carbon Dioxide 22 BUN 28 H D Creatinine 1.17 H D Glucose 124 H Calcium 8.3 L - ABG Interpretation ABG results: PT/INR, D-dimer PT 10.8 Seconds (9.4-12.1) 03/04/17 15:20 - Attending Attestation Feeling very nauseous Improving may discharge in the morning if stable. I examined this patient and my medical decision-making was reviewed with the Resident Physician. I agree with the documented findings, disposition and treatment plan as described except to the extent set forth below.
[2017-03-06] MEDS: Ondansetron 4 MG/2 ML VIAL IVP PRN (10:04)
--- NOTE | 2017-03-06 15:57 | Oncology Inp Consult Note ---
<Celia Rubio E - Last Filed: 03/06/17 15:49> Date of Encounter: 03/06/17 Time of Encounter: 15:20 Assessment and Plan (1) Leukocytosis Status: Acute Assessment and plan: Steadily decreasing with levaquin and flagyl. Associated with sepsis. Qualifiers: Leukocytosis type: unspecified Qualified Code(s): D72.829 - Elevated white blood cell count, unspecified - Data of Consult Patient: new to practice Consult date: 03/06/17 Requesting Physician: Rodriguez Mayo Primary Care Provider: Abraham Toth, - Consult Narrative Reason for consult: Leukocytosis History of present illness: Ms. Staton is a 61 year old female past medical history positive for arthritis, COPD, diabetes, GERD, gastritis, and depression. She was recently admitted through the emergency department where she presented with nausea vomiting and diarrhea of about a 2 day duration. At the time of admission her white blood cell count was 39.3. She had a CT of the abdomen with no acute findings she did have L5-S1 degenerative changes. On March 04 she also had a chest x-ray that showed no acute processes. Urine culture negative. She also had blood cultures which preliminary findings are negative. She also had an acute kidney injury with her creatinine on admission of 4.7. At that time her GFR was 9. With hydration and and treatment with Levaquin and Flagyl her white blood cell count has decreased to 14.8, Creatinine 03/06/2017 is 1.17 and GFR 47. Leukocytosis is probably due to sepsis Past Med Surg Social Fam HX - Past Medical History Medical history: arthritis, COPD, diabetes, GERD, other (Stridorous) Psychiatric history: anxiety, depression - Past Surgical History Surgical History: breast surgery (Benign lump removed from right breast) - Social History Smoking Status: Current every day smoker Packs per day: 1 Smokeless Tobacco Status: No Alcohol use: none Drug use: none - Family History Father Living Status: Hx Family Cancer: Yes (lymphoma) Sister Living Status: Hx Family Cancer: Yes (breast cancer) Medications and Allergies Cyclobenzaprine [Flexeril] 10 mg PO TID PRN 10/12/15 [History] Insulin LISPRO [Humalog Kwikpen U-100] 12 unit SQ TID 11/30/15 [History] Gabapentin [Neurontin] 600 mg PO TID 07/01/16 [History] Omeprazole 40 mg PO HS 07/01/16 [History] Insulin DETEMIR [Levemir] 45 unit SQ DAILY 03/04/17 [History] 3 Allergy/AdvReac Type Severity Reaction Status Date / Time cephalexin [From Keflex] Allergy Difficulty Verified 03/04/17 15:00 Breathing All systems: reviewed and no additional remarkable complaints except as stated Constitutional: Present: fatigue Gastrointestinal: Present: other (She reports that she was nauseated early and that was relieved by taking Zofran, diarrhea has resolved but since she ate lunch today she has had "a lot of rumbling in bowel") Oncology - Exam - Constitutional Vitals: Temp Pulse Resp BP Pulse Ox 97.5 F L 59 18 124/55 99 03/06/17 11:44 03/06/17 11:44 03/06/17 11:44 03/06/17 11:44 03/06/17 11:44 General appearance: cooperative, no acute distress - Head Head exam: Present: normal inspection - ENT ENT exam: Present: mucous membranes moist - Neck Neck exam: Absent: lymphadenopathy - Respiratory Respiratory exam: Absent: decreased breath sounds, rales, respiratory distress, rhonchi, wheezes - Cardiovascular Cardiovascular exam: Present: RRR - GI/Abdominal GI/Abdominal exam: Present: hyperactive bowel sounds, soft (non tender) - Extremities Exam Extremities exam: Present: normal capillary refill, normal inspection. Absent: pedal edema, tenderness - Neurological Exam Neurological exam: Present: oriented X3 - Psychiatric Psychiatric exam: Present: normal affect, normal mood Oncology - Results Labs: Short CBC 03/06/17 Range/Units 01:30 WBC 14.8 H D (4.3-11.1) K/mcL Hgb 11.5 D (11.5-15.4) g/dL Hct 33.9 L (35.3-44.9) % Plt Count 186 (140-400) K/mcL BMP 03/06/17 01:30 Sodium 137 Potassium 3.4 L Chloride 107 Carbon Dioxide 22 BUN 28 H D Creatinine 1.17 H D Glucose 124 H Calcium 8.3 L Consult Discharge Plan - Plan Referrals: Abraham Toth DO [Primary Care Provider] - <Toma Hernandez S - Last Filed: 03/07/17 08:39> Date of Encounter: 03/07/17 - Data of Consult Requesting Physician: Rodriguez Mayo Primary Care Provider: Abraham Toth, - Consult Narrative History of present illness: Ms. Staton is a 61 year old female Oncology - Exam - Constitutional Vitals: Temp Pulse Resp BP Pulse Ox 97.6 F 60 16 144/59 96 03/07/17 07:05 03/07/17 07:05 03/07/17 07:05 03/07/17 07:05 03/07/17 07:05 Oncology - Results Labs: Short CBC 03/07/17 Range/Units 05:06 WBC 7.0 D (4.3-11.1) K/mcL Hgb 11.6 (11.5-15.4) g/dL Hct 34.3 L (35.3-44.9) % Plt Count 233 (140-400) K/mcL Neutrophils # 4.2 (1.6-8.9) K/mcL BMP 03/07/17 05:06 Sodium 143 Potassium 3.5 Chloride 109 Carbon Dioxide 27 BUN 12 D Creatinine 0.85 Glucose 85 Calcium 8.8 - Attending Attestation I examined this patient and my medical decision-making was reviewed with the Advanced Practice Nurse. I agree with the documented findings, disposition and treatment plan as described except to the extent set forth below. 1.Admitted on 03/04/2017 with severe dehydration and prerenal injury. Creatinine on admission 4.7. Also neutrophils elevated to 36,000 with hemoglobin 18 in mild thrombocytosis She recovered completely with IV fluids are at she was also treated with Levaquin and Flagyl. Currently creatinine 0.82. Neutrophils 4000 hemoglobin 11.6 and platelets normal. She is feeling much better clinically Currently no evidence of any hematological problems 2. Etiology of acute renal failure was secondary to nausea vomiting and possible gastroenteritis. Blood cultures urine cultures have been negative. She had a similar episode 11/02/2015 presented with acute renal insufficiency and improved with conservative measures. During this episode she was fine Monday morning but got sick with nausea vomiting Monday afternoon. By the time she got admitted on Monday her kidney function has gone down with creatinine 4.7. No other family members had problems Etiology of her episode is not completely clear. Advised gastroenterology follow-up as an outpatient
[2017-03-06] MEDS ORDERED: Levofloxacin 500 MG/100 ML 500 MG/100 ML BAG IVPB SCH (17:00)
[2017-03-06] MEDS: Acetaminophen 325 MG TABLET PO PRN (23:10)
[2017-03-07] MEDS: MetroNIDAZOLE 500 MG/100 ML 500 MG/100 ML BAG IVPB SCH ×2 (00:14→08:57)
[2017-03-07] MEDS: 0.9 % Sodium Chloride 1,000 ML IVC SCH (04:07)
[2017-03-07] MEDS: *HR* Heparin 5,000 UNIT/ML VIAL SQ SCH (05:35)
[2017-03-07 05:46] LABS: Basophils # 0.1 K/mcL (0.0-0.2); Basophils % 0.9 %; Eosinophils # 0.2 K/mcL (0.0-0.6); Hematocrit 34.3 % (35.3-44.9); Hemoglobin 11.6 g/dL (11.5-15.4); Immature Granulocytes % 0.6 % (0-4); Lymphocytes % 28.3 %; Mean Corpuscular HGB Conc 33.8 g/dL (31.6-35.5); Mean Corpuscular Hemoglobin 29.1 pg (28.0-33.3); Mean Corpuscular Volume 86.2 fL (83.0-100.0); Mean Platelet Volume 10.2 fL (9.4-12.4); Monocytes # 0.5 K/mcL (0.0-1.3); Monocytes % 7.4 %; Neutrophils # 4.2 K/mcL (1.6-8.9); Platelet Count 233 K/mcL (140-400); Red Blood Count 3.98 M/mcL (3.82-4.97); Red Cell Distribution Width 12.7 % (11.5-14.5); Segmented Neutrophils % 59.8 %
[2017-03-07 06:06] LABS: BUN/Creatinine Ratio 14 (6-26); Calcium 8.8 mg/dL (8.6-10.8); Carbon Dioxide 27 mEq/L (19-29); Chloride 109 mEq/L (98-109); Glucose 85 mg/dL (70-99); Osmolality,Calculated 295 (280-300); Potassium 3.5 mEq/L (3.5-4.5); Sodium 143 mEq/L (136-145); eGFR For African Americans > 60 (> 60); eGFR For Non-African Americans > 60 (> 60)
[2017-03-07 06:07] LABS: Blood Urea Nitrogen 12 mg/dL (7-20)
[2017-03-07 07:12] VITALS: BP 144/59
[2017-03-07] MEDS ORDERED: Insulin LISPRO 300 UNITS/3 ML VIAL SQ SCH ×2 (07:30→21:00)
[2017-03-07] MEDS: Pantoprazole 40 MG VIAL IVP SCH (08:58)
[2017-03-07] MEDS ORDERED: Gabapentin 300 MG CAPSULE PO SCH (09:00)
[2017-03-07] MEDS: Ondansetron 4 MG/2 ML VIAL IVP PRN (09:17)
--- NOTE | 2017-03-07 09:34 | Discharge Summary ---
Date of Encounter: 03/07/17 Time of Encounter: 09:30 - Discharge Diagnosis (1) Acute kidney injury Priority: Primary Status: Acute Comments: Acute renal failure likely secondary to sepsis and severe dehydration from acute gastroenteritis (2) Sepsis Priority: Primary Status: Acute Comments: Sepsis secondary to acute gastroenteritis Qualifiers: Sepsis type: sepsis due to unspecified organism Qualified Code(s): A41.9 - Sepsis, unspecified organism (3) Leukocytosis Priority: Secondary Status: Acute Qualifiers: Leukocytosis type: unspecified Qualified Code(s): D72.829 - Elevated white blood cell count, unspecified (4) Nausea and vomiting in adult patient Priority: Secondary Status: Acute (5) Diabetes Priority: Secondary Status: Chronic Qualifiers: Diabetes mellitus type: type 2 Diabetes mellitus complication status: with unspecified complications Diabetes mellitus fci insulin 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 Qualified Code(s): E11.8 - Type 2 diabetes mellitus with unspecified complications (6) Diarrhea Priority: Primary Status: Acute Qualifiers: Diarrhea type: unspecified type Qualified Code(s): R19.7 - Diarrhea, unspecified (7) Dehydration Priority: Primary Status: Acute - Discharge Medications Prescriptions: Ondansetron ODT [Zofran ODT] 4 mg SL Q6HR PRN #30 tab.rapdis PRN Reason: Nausea Ciprofloxacin [Cipro] 500 mg PO BID #8 tablet metroNIDAZOLE [Flagyl] 500 mg PO BID #8 tablet Home Medications: Cyclobenzaprine [Flexeril] 10 mg PO TID PRN 10/12/15 [History] Insulin LISPRO [Humalog Kwikpen U-100] 12 unit SQ TID 11/30/15 [History] Gabapentin [Neurontin] 600 mg PO TID 07/01/16 [History] Omeprazole 40 mg PO HS 07/01/16 [History] Insulin DETEMIR [Levemir] 45 unit SQ DAILY 03/04/17 [History] Ciprofloxacin [Cipro] 500 mg PO BID #8 tablet 03/07/17 [Rx] Ondansetron ODT [Zofran ODT] 4 mg SL Q6HR PRN #30 tab.rapdis 03/07/17 [Rx] metroNIDAZOLE [Flagyl] 500 mg PO BID #8 tablet 03/07/17 [Rx] Allergies/Adverse Reactions: 3 Allergy/AdvReac Type Severity Reaction Status Date / Time cephalexin [From Keflex] Allergy Difficulty Verified 03/04/17 15:00 Breathing Date of admission: 03/04/17 22:33 Primary care physician: Abraham Toth, - Patient Status Disposition: Home, Self-Care Condition: Fair Overall status at discharge: patient is back to baseline - Discharge Instructions Follow Up With: Abraham Toth DO [Primary Care Provider] - Additional Instructions: Follow-up with primary care physician within the next week. Continue 4 more days of Flagyl and ciprofloxacin. Do not drink alcohol while taking Flagyl. Quit smoking. Maintain good hydration . - Diet and Activity Activity: increase activity as tolerated Diet: diabetic diet Hospital course: Ms. Staton is a 61 year old female with past medical history arthritis, COPD oxygen dependent, tobacco use, diabetesinsulin-dependent, GERD, anxiety, depression and gastritis. Patient presented to the ED with complaints of abdominal pain, vomiting and diarrhea. Patient stateed abdominal pain started about 24 hours prior to dmission. She complained of several episodes of vomiting and persistent nausea. She stated she was unable to keep any food or liquid down. She also complained of several episodes of diarrhea. She denied blood in the stool or blood in emesis. had an endoscopy in the past which revealed esophagitis, gastritis and duodenitis. She stated her abdominal pain is dull and cramping. Rated it 6 out of 10, CT of the abdomen and pelvis does not show any acute abnormality. Patient will need IV fluids and IV antibiotics, IV vancomycin and Levaquin. White blood cell was extremely irr rated at 39.3, also creatinine was 4.7. Vancomycin was discontinued and continued on Levaquin IV Lactic acid was 2.5 and improved fluids and anti-biotics. GI panel was negative Her numbers improved considerably, Creatinine is 0.8 and WBC is 7 now. Stable to be discharged Time spent discussing smoking cessation with patient: 3 to 10 minutes - Time Spent with Patient Total time spent providing and/or coordinating discharge services: Greater than 30 minutes (40 imn) - Constitutional Vitals: Temp Pulse Resp BP Pulse Ox 97.6 F 60 16 144/59 96 03/07/17 07:05 03/07/17 07:05 03/07/17 07:05 03/07/17 07:05 03/07/17 07:05 General appearance: Present: cooperative, A&O X 3, pleasant, no acute distress, answers questions appropriately - Head Head exam: Present: atraumatic, normocephalic - Eye Eye exam: Present: PERRL, conjuntiva pink, sclera anicteric Pupils: Present: PERRL - Neck Neck exam general surgery: Present: supple, trachea midline. Absent: lymphadenopathy - Respiratory Respiratory exam: Present: CTAB. Absent: accessory muscle use, rales, rhonchi, wheezes - Cardiovascular Cardiovascular exam: Present: RRR, +S1, +S2. Absent: diastolic murmur, gallop, rubs, systolic murmur - GI/Abdominal GI/Abdominal exam: Present: normal bowel sounds, soft, no peritoneal signs. Absent: distended, tenderness - Extremities Exam Extremities exam: Present: warm, radial pulses palpable and symmetrical. Absent : calf tenderness, cyanotic, pedal edema - Neurological Exam Neurological exam: Present: CN II-XII intact, oriented X3, no focal deficits. Absent: pronater drift, facial droop, speech deficit - Skin Skin exam: Present: dry, intact
[2017-03-07] MEDS: Insulin DETEMIR 100 UNIT/ML X5UNITS SQ SCH (10:25)
== END 2017-03-07 12:33 | disposition home or self-care (01) | DRG 872 ==
LOC: 2NNU 14:50 → EMEROO 14:50 → 2NNU 20:32 → SUATTDRO 22:33 → 2NENU 03-05 18:13
PROVIDERS: ADMIT Family Medicine; ATTEND Internal Medicine

== ENCOUNTER 2017-03-16 17:48 | Inpatient (IN) ==
--- NOTE | 2017-03-16 18:32 | Emergency Department Note ---
Disposition Clinical Impression: Enteritis, Hypokalemia Intractable nausea and vomiting Qualifiers: Vomiting type: unspecified Qualified Code(s): R11.2 - Nausea with vomiting, unspecified Diarrhea Qualifiers: Diarrhea type: unspecified type Qualified Code(s): R19.7 - Diarrhea, unspecified Leukocytosis Qualifiers: Leukocytosis type: unspecified Qualified Code(s): D72.829 - Elevated white blood cell count, unspecified Disposition: Admitted As Inpatient Condition: Fair Time of Disposition: 20:47 General Adult HPI - General Chief complaint: ED Abdominal Pain Stated complaint: vomiting, back pain Time Seen by Provider: 03/16/17 18:16 Source: patient Mode of arrival: ambulatory Limitations: no limitations Nursing Notes Reviewed: Yes Vital Signs Reviewed: Yes - History of Present Illness HPI Narrative: Patient is a 61-year-old female presents with nausea and vomiting and abdominal back pain 4 days ago. Patient states that she was here yesterday and evaluated after evaluation she was sent home and continued to have nausea and vomiting. Patient states she is unable to take anything by mouth. Her pain in her lower back and right flank she states 10 out of 10 and constant sharp pain. Patient states she was seen for similar issue over week ago where she was admitted for 3 days concerning her kidneys. Pain Scale: 10 - Related Data Home Medications Medication Instructions Recorded Confirmed Cyclobenzaprine [Flexeril] 10 mg PO TID PRN 10/12/15 03/16/17 Insulin LISPRO [Humalog Kwikpen 10 unit SQ TIDWM 11/30/15 03/16/17 U-100] Gabapentin [Neurontin] 600 mg PO TID 07/01/16 03/16/17 Omeprazole 40 mg PO HS 07/01/16 03/16/17 Insulin DETEMIR [Levemir] 45 unit SQ HS 03/04/17 03/16/17 Allergies Allergy/AdvReac Type Severity Reaction Status Date / Time cephalexin [From Keflex] Allergy Difficulty Verified 03/16/17 17:57 Breathing All systems ED: reviewed and negative except as stated. Review of Systems: As Per HPI Constitutional: Denies: fever, chills Eyes: Denies: vision change ENT ED: Denies: congestion Cardiovascular: Denies: chest pain, palpitations, dyspnea on exertion Respiratory: Denies: cough, dyspnea, wheezes, hemoptysis Gastrointestinal: Reports: abdominal pain, nausea, vomiting, diarrhea Genitourinary: Reports: dysuria, other (Difficulty making urine) Past Medical History - Past Medical History Attestation: Yes The following information was validated with the patient. Source: patient Medical history: Reports: arthritis, COPD, diabetes, GERD, other Surgical history: Reports: breast surgery (Benign lump removed from right breast ) Psychiatric history: Reports: anxiety, depression [employer] history: Reports: bilateral tubal ligation - Social History Smoking Status: Current every day smoker Smokeless Tobacco Status: No Alcohol use: Reports: none Drug use: Reports: none Physical Exam 61-year-old female who is alert and oriented 3 and increased acute distress secondary to abdominal and back discomfort. patient is unable to find a comfortable position. - General Limitations: no limitations General appearance: alert, in no apparent distress - Head Head exam: atraumatic, normocephalic, normal inspection - Eye Eye exam: Present: normal appearance, PERRL, EOMI - ENT ENT exam: normal exam, normal oropharynx, mucous membranes moist - Neck Neck exam: Present: normal inspection, full ROM, trachea midline - Chest Chest inspection: Present: normal inspection, symmetric chest wall rise. Absent : tenderness, rash - Respiratory Respiratory exam: Present: normal lung sounds bilaterally. Absent: respiratory distress, wheezes - Abdominal Exam Abdominal exam: Present: soft, tenderness, other Abdominal tenderness: Present: RUQ, LUQ, epigastrium - Extremities Exam Extremities exam: Present: normal inspection, full ROM, normal capillary refill. Absent: tenderness, pedal edema, joint swelling, calf tenderness - Back Exam Back exam: Present: normal inspection, full ROM, paraspinal tenderness. Absent : tenderness, CVA tenderness (R), CVA tenderness (L), vertebral tenderness - Neurological Exam Neurological exam: Present: alert, oriented X3 - Psychiatric Psychiatric exam: Present: anxious - Skin Skin exam: Present: warm, dry, intact Course Vital Signs Temperature 97.8 F 03/16/17 17:54 Pulse Rate 86 03/16/17 17:54 Respiratory Rate 18 03/16/17 17:54 Blood Pressure 143/79 03/16/17 17:54 O2 Sat by Pulse Oximetry 93 03/16/17 17:54 Temperature 98.3 F 03/18/17 14:27 Pulse Rate 85 03/18/17 14:27 Respiratory Rate 14 03/18/17 14:27 Blood Pressure 144/78 03/18/17 14:27 O2 Sat by Pulse Oximetry 95 03/18/17 14:27 Oxygen Delivery Oxygen Delivery Nasal Cannula Medical Decision Making - MDM Narrative Medical decision making narrative: 61-year-old female who returns to the ED today after being seen yesterday morning had a CT scan abdomen and pelvis shows findings consistent with acute enteritis of her duodenum and proximal jejunum, also showed mild pancreatic inflammation but no obstruction perforation or abscess. Patient states that she has had intractable nausea and vomiting at home as well as abdominal pain back pain and unable to find a comfortable position. Records show the patient was admitted last week for previous symptoms. Patient has a very elevated WBC today of 37.1. Record show that she has had high levels in the past but her previous WBC was normal at 7.0. Lactic acid was drawn which was 1.9. Patient is given 8 mg of Zofran for her nausea as well as 50 g of fentanyl IV which is able to quell her nausea and pain. Patient currently comfortable. Recommend admission for unable to tolerate by mouth, elevated WBC in the setting of enteritis. Patient requires IV hydration, IV pain meds, and nausea control. Patient is also hypokalemic mildly at 3.3 and was started on IV potassium replenishment. Dr. Fishman has accepted Pt for admission at 2034 hrs - Medical Records Medical records reviewed: Yes I reviewed the patient's medical records. - Lab Data Lab results reviewed: Yes I reviewed the patient's lab results. Lab results narrative: Short CBC 03/16/17 Range/Units 18:37 WBC 37.3 H* (4.3-11.1) K/mcL Hgb 16.0 H (11.5-15.4) g/dL Hct 46.1 H (35.3-44.9) % Plt Count 435 H (140-400) K/mcL Neutrophils # 34.1 H (1.6-8.9) K/mcL BMP 03/16/17 Range/Units 18:37 Sodium 139 (136-145) mEq/L Potassium 3.3 L (3.5-4.5) mEq/L Chloride 97 L (98-109) mEq/L Carbon Dioxide 29 (19-29) mEq/L BUN 21 H (7-20) mg/dL Creatinine 0.89 (0.57-1.11) mg/dL Glucose 249 H (70-99) mg/dL Calcium 9.3 (8.6-10.8) mg/dL Liver Function 03/16/17 Range/Units 18:37 Total Bilirubin 0.7 (0.2-1.2) mg/dL Direct Bilirubin 0.3 (0.0-0.5) mg/dL AST 11 (5-34) Units/L ALT 30 (0-55) Units/L Alkaline Phosphatase 64 (38-126) Units/L Albumin 3.8 (3.5-5.0) g/dL Urine 03/16/17 Range/Units 19:45 Urine Color Yellow (Yellow) Urine Clarity Clear (Clear) Urine pH 5.5 (5.0-8.0) pH Units Ur Specific [place] > 1.030 H (1.010-1.025) Urine Protein 30 H (Neg-Trace) mg/dL Urine Glucose (UA) >=1000 H (Normal) mg/dL Result diagrams: 03/18/17 05:54 03/18/17 03:46 Lab Results 03/16/17 03/16/17 03/16/17 Range/Units 18:37 18:37 19:32 WBC 37.3 H* (4.3-11.1) K/mcL RBC 5.36 H (3.82-4.97) M/mcL Hgb 16.0 H (11.5-15.4) g/dL Hct 46.1 H (35.3-44.9) % MCV 86.0 (83.0-100.0) fL MCH 29.9 (28.0-33.3) pg MCHC 34.7 (31.6-35.5) g/dL RDW 13.0 (11.5-14.5) % Plt Count 435 H (140-400) K/mcL MPV 9.9 (9.4-12.4) fL Immature Gran % 1.2 (0-4) % Seg Neutrophils % 91.4 % Lymphocytes % 3.1 % Monocytes % 4.1 % Eosinophils % 0.0 % Basophils % 0.2 % Neutrophils # 34.1 H (1.6-8.9) K/mcL Lymphocytes # 1.2 (0.6-4.6) K/mcL Monocytes # 1.5 H (0.0-1.3) K/mcL Eosinophils # 0.0 (0.0-0.6) K/mcL Basophils # 0.1 (0.0-0.2) K/mcL Hypersegmented Neuts Present A (Not Present) Reactive Lymphocytes Present A (Not Present) Smudge Cells Present A (Not Present) Platelet Estimate Increased H (Normal) PT (9.4-12.1) Seconds INR APTT (26.0-36.0) Seconds Sodium 139 (136-145) mEq/L Potassium 3.3 L (3.5-4.5) mEq/L Chloride 97 L (98-109) mEq/L Carbon Dioxide 29 (19-29) mEq/L BUN 21 H (7-20) mg/dL Creatinine 0.89 (0.57-1.11) mg/dL Est GFR ( Amer) > 60 (> 60) Est GFR (Non-Af Amer) > 60 (> 60) BUN/Creatinine Ratio 24 (6-26) Glucose 249 H (70-99) mg/dL POC Glucose (58-89) Calculated Osmolality 299 (280-300) Lactic Acid 1.9 (0.5-2.2) mmol/L Calcium 9.3 (8.6-10.8) mg/dL Phosphorus (2.3-4.7) mg/dL Magnesium (1.6-2.6) mg/dL Total Bilirubin 0.7 (0.2-1.2) mg/dL Direct Bilirubin 0.3 (0.0-0.5) mg/dL Indirect Bilirubin 0.4 (0.0-1.2) mg/dL AST 11 (5-34) Units/L ALT 30 (0-55) Units/L Alkaline Phosphatase 64 (38-126) Units/L Serum Total Protein 7.0 (6.0-8.3) g/dL Albumin 3.8 (3.5-5.0) g/dL Globulin 3.2 (2.4-3.5) g/dL Albumin/Globulin Ratio 1.2 (1.1-2.2) Lipase < 10 (8-78) Units/L Urine Color (Yellow) Urine Clarity (Clear) Urine pH (5.0-8.0) pH Units Ur Specific [place] (1.010-1.025) Urine Protein (Neg-Trace) mg/dL Urine Glucose (UA) (Normal) mg/dL Urine Ketones (Negative) mg/dL Urine Blood (Negative) Urine Nitrite (Negative) Urine Bilirubin (Negative) Urine Urobilinogen (Normal) mg/dL Ur Leukocyte Esterase (Negative) Urine Microscopic RBC (0-3) per hpf Urine Microscopic WBC (0-3) per hpf Ur Squamous Epith Cells (None-Few) per lpf Urine Bacteria (None-Few) per hpf Hyaline Casts (None-Few) per lpf Ur Culture Indicated? (NO) 03/16/17 03/16/17 03/17/17 Range/Units 19:45 22:02 01:36 WBC 28.5 H (4.3-11.1) K/mcL RBC 4.42 (3.82-4.97) M/mcL Hgb 13.4 D (11.5-15.4) g/dL Hct 38.8 (35.3-44.9) % MCV 87.8 (83.0-100.0) fL MCH 30.3 (28.0-33.3) pg MCHC 34.5 (31.6-35.5) g/dL RDW 13.0 (11.5-14.5) % Plt Count 339 (140-400) K/mcL MPV 9.8 (9.4-12.4) fL Immature Gran % 1.9 (0-4) % Seg Neutrophils % 89.1 % Lymphocytes % 3.4 % Monocytes % 5.4 % Eosinophils % 0.0 % Basophils % 0.2 % Neutrophils # 25.4 H (1.6-8.9) K/mcL Lymphocytes # 1.0 (0.6-4.6) K/mcL Monocytes # 1.5 H (0.0-1.3) K/mcL Eosinophils # 0.0 (0.0-0.6) K/mcL Basophils # 0.1 (0.0-0.2) K/mcL Hypersegmented Neuts Present A (Not Present) Reactive Lymphocytes Present A (Not Present) Smudge Cells Present A (Not Present) Platelet Estimate Normal (Normal) PT (9.4-12.1) Seconds INR APTT (26.0-36.0) Seconds Sodium (136-145) mEq/L Potassium (3.5-4.5) mEq/L Chloride (98-109) mEq/L Carbon Dioxide (19-29) mEq/L BUN (7-20) mg/dL Creatinine (0.57-1.11) mg/dL Est GFR ( Amer) (> 60) Est GFR (Non-Af Amer) (> 60) BUN/Creatinine Ratio (6-26) Glucose (70-99) mg/dL POC Glucose 180 H (58-89) Calculated Osmolality (280-300) Lactic Acid (0.5-2.2) mmol/L Calcium (8.6-10.8) mg/dL Phosphorus (2.3-4.7) mg/dL Magnesium (1.6-2.6) mg/dL Total Bilirubin (0.2-1.2) mg/dL Direct Bilirubin (0.0-0.5) mg/dL Indirect Bilirubin (0.0-1.2) mg/dL AST (5-34) Units/L ALT (0-55) Units/L Alkaline Phosphatase (38-126) Units/L Serum Total Protein (6.0-8.3) g/dL Albumin (3.5-5.0) g/dL Globulin (2.4-3.5) g/dL Albumin/Globulin Ratio (1.1-2.2) Lipase (8-78) Units/L Urine Color Yellow (Yellow) Urine Clarity Clear (Clear) Urine pH 5.5 (5.0-8.0) pH Units Ur Specific [place] > 1.030 H (1.010-1.025) Urine Protein 30 H (Neg-Trace) mg/dL Urine Glucose (UA) >=1000 H (Normal) mg/dL Urine Ketones 80 H (Negative) mg/dL Urine Blood Negative (Negative) Urine Nitrite Negative (Negative) Urine Bilirubin Small H (Negative) Urine Urobilinogen Normal (Normal) mg/dL Ur Leukocyte Esterase Negative (Negative) Urine Microscopic RBC 0-3 (0-3) per hpf Urine Microscopic WBC 0-3 (0-3) per hpf Ur Squamous Epith Cells Many H (None-Few) per lpf Urine Bacteria None Seen (None-Few) per hpf Hyaline Casts None Seen (None-Few) per lpf Ur Culture Indicated? NO (NO) 03/17/17 03/17/17 03/17/17 Range/Units 01:36 01:36 04:18 WBC (4.3-11.1) K/mcL RBC (3.82-4.97) M/mcL Hgb (11.5-15.4) g/dL Hct (35.3-44.9) % MCV (83.0-100.0) fL MCH (28.0-33.3) pg MCHC (31.6-35.5) g/dL RDW (11.5-14.5) % Plt Count (140-400) K/mcL MPV (9.4-12.4) fL Immature Gran % (0-4) % Seg Neutrophils % % Lymphocytes % % Monocytes % % Eosinophils % % Basophils % % Neutrophils # (1.6-8.9) K/mcL Lymphocytes # (0.6-4.6) K/mcL Monocytes # (0.0-1.3) K/mcL Eosinophils # (0.0-0.6) K/mcL Basophils # (0.0-0.2) K/mcL Hypersegmented Neuts (Not Present) Reactive Lymphocytes (Not Present) Smudge Cells (Not Present) Platelet Estimate (Normal) PT 12.0 (9.4-12.1) Seconds INR 1.1 APTT 30.5 (26.0-36.0) Seconds Sodium 138 (136-145) mEq/L Potassium 3.8 (3.5-4.5) mEq/L Chloride 106 (98-109) mEq/L Carbon Dioxide 25 (19-29) mEq/L BUN 18 (7-20) mg/dL Creatinine 0.73 (0.57-1.11) mg/dL Est GFR ( Amer) > 60 (> 60) Est GFR (Non-Af Amer) > 60 (> 60) BUN/Creatinine Ratio 25 (6-26) Glucose 198 H (70-99) mg/dL POC Glucose (58-89) Calculated Osmolality 293 (280-300) Lactic Acid 0.7 (0.5-2.2) mmol/L Calcium 7.9 L D (8.6-10.8) mg/dL Phosphorus (2.3-4.7) mg/dL Magnesium (1.6-2.6) mg/dL Total Bilirubin 0.4 (0.2-1.2) mg/dL Direct Bilirubin (0.0-0.5) mg/dL Indirect Bilirubin (0.0-1.2) mg/dL AST 10 (5-34) Units/L ALT 22 (0-55) Units/L Alkaline Phosphatase 50 (38-126) Units/L Serum Total Protein 5.4 L D (6.0-8.3) g/dL Albumin 2.9 L D (3.5-5.0) g/dL Globulin 2.5 (2.4-3.5) g/dL Albumin/Globulin Ratio 1.2 (1.1-2.2) Lipase (8-78) Units/L Urine Color (Yellow) Urine Clarity (Clear) Urine pH (5.0-8.0) pH Units Ur Specific [place] (1.010-1.025) Urine Protein (Neg-Trace) mg/dL Urine Glucose (UA) (Normal) mg/dL Urine Ketones (Negative) mg/dL Urine Blood (Negative) Urine Nitrite (Negative) Urine Bilirubin (Negative) Urine Urobilinogen (Normal) mg/dL Ur Leukocyte Esterase (Negative) Urine Microscopic RBC (0-3) per hpf Urine Microscopic WBC (0-3) per hpf Ur Squamous Epith Cells (None-Few) per lpf Urine Bacteria (None-Few) per hpf Hyaline Casts (None-Few) per lpf Ur Culture Indicated? (NO) 03/17/17 03/17/17 Range/Units 04:18 07:26 WBC (4.3-11.1) K/mcL RBC (3.82-4.97) M/mcL Hgb (11.5-15.4) g/dL Hct (35.3-44.9) % MCV (83.0-100.0) fL MCH (28.0-33.3) pg MCHC (31.6-35.5) g/dL RDW (11.5-14.5) % Plt Count (140-400) K/mcL MPV (9.4-12.4) fL Immature Gran % (0-4) % Seg Neutrophils % % Lymphocytes % % Monocytes % % Eosinophils % % Basophils % % Neutrophils # (1.6-8.9) K/mcL Lymphocytes # (0.6-4.6) K/mcL Monocytes # (0.0-1.3) K/mcL Eosinophils # (0.0-0.6) K/mcL Basophils # (0.0-0.2) K/mcL Hypersegmented Neuts (Not Present) Reactive Lymphocytes (Not Present) Smudge Cells (Not Present) Platelet Estimate (Normal) PT (9.4-12.1) Seconds INR APTT (26.0-36.0) Seconds Sodium (136-145) mEq/L Potassium (3.5-4.5) mEq/L Chloride (98-109) mEq/L Carbon Dioxide (19-29) mEq/L BUN (7-20) mg/dL Creatinine (0.57-1.11) mg/dL Est GFR ( Amer) (> 60) Est GFR (Non-Af Amer) (> 60) BUN/Creatinine Ratio (6-26) Glucose (70-99) mg/dL POC Glucose 101 H (58-89) Calculated Osmolality (280-300) Lactic Acid (0.5-2.2) mmol/L Calcium (8.6-10.8) mg/dL Phosphorus 2.1 L (2.3-4.7) mg/dL Magnesium 1.5 L (1.6-2.6) mg/dL Total Bilirubin (0.2-1.2) mg/dL Direct Bilirubin (0.0-0.5) mg/dL Indirect Bilirubin (0.0-1.2) mg/dL AST (5-34) Units/L ALT (0-55) Units/L Alkaline Phosphatase (38-126) Units/L Serum Total Protein (6.0-8.3) g/dL Albumin (3.5-5.0) g/dL Globulin (2.4-3.5) g/dL Albumin/Globulin Ratio (1.1-2.2) Lipase (8-78) Units/L Urine Color (Yellow) Urine Clarity (Clear) Urine pH (5.0-8.0) pH Units Ur Specific [place] (1.010-1.025) Urine Protein (Neg-Trace) mg/dL Urine Glucose (UA) (Normal) mg/dL Urine Ketones (Negative) mg/dL Urine Blood (Negative) Urine Nitrite (Negative) Urine Bilirubin (Negative) Urine Urobilinogen (Normal) mg/dL Ur Leukocyte Esterase (Negative) Urine Microscopic RBC (0-3) per hpf Urine Microscopic WBC (0-3) per hpf Ur Squamous Epith Cells (None-Few) per lpf Urine Bacteria (None-Few) per hpf Hyaline Casts (None-Few) per lpf Ur Culture Indicated? (NO) - Radiology Data Radiology results reviewed: Yes I reviewed the patient's radiology results. Attestation Statement - Attestation Attestation: I examined this patient and my medical decision-making was reviewed with the Resident Physician, Dr. Moore. I agree with the documented findings, disposition and treatment plan as described except to the extent set forth below. Pt is a 61 yo wf, hx COPD and DM who presents to the ER for the 2nd time in 2 days for ongoing c/o's of N/V and upper abd pain which is radiating into her back. Pt seen /evaluated yesterday for same c/o's, and had CT a/p showing evidence of enteritis and peripancreatic inflammation, no lipase was performed. Pt was DC'd home, but returns due to ongoing upper abd paina ndintractable N/V, stating she has been unable to tolerate any PO including her medications. No F/C , no bowel changes, no urinary sxs. Pt was recently DC'd from the hospital recently for similar presentation, in which she had significantly elev WBC and met criteria for sepsis. Pt was placed on cipro/flagyl, no infectious source confirmed, and with IVF and antibx slowly improved. Pt with stable VS on arrival. I agree with pt's PE findings as documented, mild hypoxia on RA, with hx COPD. No resp distress/conv dyspnea on exam. Pt with significantly elev WBC count compared to yesterday. Pt also with intractable pain and vomiting despite IV meds in ED. Pt received IVF also. Lactate wnl. Did not re-image pt due to CT scanning less than 24 hrs prior. Will admit for intractable N/V and abd pain, recent sepsis, and lekocytosis. Remaining labs wnl. Pt accepted for admission by hosp. VSS at time of admission.
[2017-03-16 18:46] LABS: Basophils # 0.1 K/mcL (0.0-0.2); Basophils % 0.2 %; Hematocrit 46.1 % (35.3-44.9); Immature Granulocytes % 1.2 % (0-4); Lymphocytes # 1.2 K/mcL (0.6-4.6); Lymphocytes % 3.1 %; Mean Corpuscular HGB Conc 34.7 g/dL (31.6-35.5); Mean Corpuscular Hemoglobin 29.9 pg (28.0-33.3); Mean Platelet Volume 9.9 fL (9.4-12.4); Monocytes # 1.5 K/mcL (0.0-1.3); Monocytes % 4.1 %; Neutrophils # 34.1 K/mcL (1.6-8.9); Platelet Count 435 K/mcL (140-400); Red Blood Count 5.36 M/mcL (3.82-4.97); Segmented Neutrophils % 91.4 %
[2017-03-16] MEDS ORDERED: Ondansetron 4 MG/2 ML VIAL IVP PRN ×2 (18:52→22:07)
[2017-03-16] MEDS ORDERED: 0.9 % Sodium Chloride 1,000 ML IVC ONE ×2 (18:52→20:09)
[2017-03-16] MEDS ORDERED: *HR* FentaNYL (PF) 100 MCG/2 ML VIAL IVP ONE (18:52)
[2017-03-16 18:59] LABS: Alanine Aminotransferase 30 Units/L (0-55); Albumin 3.8 g/dL (3.5-5.0); Albumin/Globulin Ratio 1.2 (1.1-2.2); Alkaline Phosphatase 64 Units/L (38-126); Aspartate Amino Transferase 11 Units/L (5-34); BUN/Creatinine Ratio 24 (6-26); Bilirubin,Direct 0.3 mg/dL (0.0-0.5); Bilirubin,Indirect 0.4 mg/dL (0.0-1.2); Bilirubin,Total 0.7 mg/dL (0.2-1.2); Blood Urea Nitrogen 21 mg/dL (7-20); Calcium 9.3 mg/dL (8.6-10.8); Carbon Dioxide 29 mEq/L (19-29); Chloride 97 mEq/L (98-109); Globulin 3.2 g/dL (2.4-3.5); Glucose 249 mg/dL (70-99); Osmolality,Calculated 299 (280-300); Potassium 3.3 mEq/L (3.5-4.5); Sodium 139 mEq/L (136-145); eGFR For African Americans > 60 (> 60); eGFR For Non-African Americans > 60 (> 60)
[2017-03-16 19:01] LABS: Lipase < 10 Units/L (8-78)
[2017-03-16 19:10] LABS: Hypersegmented Neutrophils Present (Not Present); Platelet Estimate Increased (Normal); Reactive Lymphocytes Present (Not Present); Smudge Cells Present (Not Present)
[2017-03-16 19:57] LABS: Bilirubin,Urine Small (Negative); Blood,Urine Negative (Negative); Clarity,Urine Clear (Clear); Color,Urine Yellow (Yellow); Glucose,Urine (UA) >=1000 mg/dL (Normal); Ketones,Urine 80 mg/dL (Negative); Leukocyte Esterase,Urine Negative (Negative); Nitrite,Urine Negative (Negative); PH,Urine 5.5 pH Units (5.0-8.0); Protein,Urine 30 mg/dL (Neg-Trace); Specific Gravity,Urine > 1.030 (1.010-1.025); Urobilinogen,Urine Normal (Normal)
[2017-03-16 19:59] LABS: Bacteria,Urine None Seen per hpf (None-Few); Hyaline Casts,Urine None Seen per lpf (None-Few); RBC,Urine 0-3 per hpf (0-3); Squamous Epithelial Cell,Urine Many per lpf (None-Few); WBC,Urine 0-3 per hpf (0-3)
--- NOTE | 2017-03-16 22:04 | Internal Med History&Physical ---
<Colton Aggarwal - Last Filed: 03/17/17 00:15> Date of Encounter: 03/16/17 Time of Encounter: 22:04 Assessment and Plan (1) Gastroenteritis Current visit: No Status: Acute Acute on chronic gastroenteritis Leukocytosis, lactic acid negative Patient has had several previous episodes of similar symptoms with last ED visit yesterday, and most recent hospitalization 03/04/17 after which she completed 5 days of Cipro/Flagyl. Patient had an endoscopy on 10/12/15 which revealed esophagitis, gastritis and duodenitis. Last colonoscopy 11/30/[address] of the abdomen and pelvis revealed acute enteritis predominately involving the duodenum and proximal jejunum, mild secondary pancreatic inflammation, with no obstruction, perforation, or abscess. Patient was given 2L IV fluids, continue at 150cc/h Zofran/ Phenergan prn N/V Continue IV Flagyl and Levaquin (patient is allergic to cephalosporins) NPO GI consulted (2) Failure of outpatient treatment Current visit: Yes Status: Acute Most recent hospitalization 03/04/17 after which she completed 5 days of PO Cipro /Flagyl for acute gastroenteritis GI panel negative at that time (3) Hypokalemia Current visit: Yes Status: Acute K 3.3 likely due to vomiting Supplement K (4) Type 2 diabetes mellitus Current visit: No Status: Chronic Half dose Levemir due to NPO status Continue accuchecks and SSI Qualifiers: Diabetes mellitus complication status: without complication 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 Staton is a 61 year old female with a PMH of COPD oxygen dependent, tobacco use, insulin-dependent DM, GERD, depression, and gastritis that froented to the ED c/o abdominal pain, nausea, vomiting and diarrhea for the past 4 days. She stated her abdominal pain is dull, cramping, and worse with laying flat. Pain is 10 out of 10 severity. She stated she was unable to keep any food or liquids down. She also complained of several episodes of diarrhea. Of note, patient has had several previous episodes of similar symptoms with last ED visit yesterday, and most recent hospitalization 03/04/17 after which she completed 5 days of Cipro/Flagyl. She denies fever, chills, CP, SOB, blood in the stool, blood in emesis, kidney stones, hematuria, dysuria, urinary frequency or urgency. Patient had an endoscopy on 10/12/15 which revealed esophagitis, gastritis and duodenitis. Last colonoscopy 11/30/15 revealed colon polyps. In the ED, CT of the abdomen and pelvis revealed acute enteritis predominately involving the duodenum and proximal jejunum, mild secondary pancreatic inflammation, with no obstruction, perforation, or abscess. Past Med Surg Social Fam HX - Past Medical History Medical history: arthritis, COPD, diabetes, GERD, other Psychiatric history: anxiety, depression - Past Surgical History Surgical History: breast surgery - Social History Smoking Status: Current every day smoker Packs per day: 1 Smokeless Tobacco Status: No Alcohol use: none Drug use: none Current living situation: Home - Family History Father Living Status: Hx Family Cancer: Yes (lymphoma) Sister Living Status: Hx Family Cancer: Yes (breast cancer) Internal Medicine - H&P: Meds Cyclobenzaprine [Flexeril] 10 mg PO TID PRN 10/12/15 [History] Insulin LISPRO [Humalog Kwikpen U-100] 10 unit SQ TIDWM 11/30/15 [History] Gabapentin [Neurontin] 600 mg PO TID 07/01/16 [History] Omeprazole 40 mg PO HS 07/01/16 [History] Insulin DETEMIR [Levemir] 45 unit SQ HS 03/04/17 [History] 3 Allergy/AdvReac Type Severity Reaction Status Date / Time cephalexin [From Keflex] Allergy Difficulty Verified 03/16/17 17:57 Breathing All Systems PM: A 10-system review of systems was performed and is negative for pertinent findings except as documented above in the HPI. - Constitutional Constitutional: anorexia, no chills, no fever(s), no weight gain, no weight loss - EENT Eyes: no change in vision Nose, mouth and throat: no nasal congestion, no sore throat - Cardiovascular Cardiovascular ROS IM: no chest pain, no palpitations - Respiratory Respiratory: no cough, no dyspnea, no excessive phlegm production - Gastrointestinal Gastrointestinal: abdominal pain, cramping, diarrhea, nausea, vomiting, no dysphagia, no melena - Genitourinary Genitourinary: no dysuria, no urinary frequency, no urinary hesitancy, no urinary urgency - Musculoskeletal Musculoskeletal ROS IM: back pain, no muscle weakness, no numbness, no tingling - Integumentary Integumentary IM: no new lesions, no rash, no skin ulcer - Neurological Neurological ROS: no dizziness, no numbness, no tingling, no weakness - Psychiatric Psychiatric: anxiety, no depression - Endocrine Endocrine IM: no polydipsia, no polyphagia, no polyuria - Hematologic/Lymphatic Hematologic/Lymphatic: no easy bleeding, no easy bruising - Constitutional Vitals: Temp Pulse Resp BP Pulse Ox 97.7 F 62 16 148/74 99 03/16/17 21:56 03/16/17 21:56 03/16/17 21:56 03/16/17 21:56 03/16/17 21:56 General appearance: Present: cooperative, mild distress, obese, answers questions appropriately - Head Head exam: Present: atraumatic, normal inspection, normocephalic - Eye Eye exam: Present: EOMI, PERRL - ENT ENT exam: Present: mucous membranes moist, normal oropharynx - Neck Neck exam general surgery: Present: normal inspection, supple. Absent: tenderness - Respiratory Respiratory exam: Present: CTAB. Absent: rhonchi, wheezes, tachypnea - Cardiovascular Cardiovascular exam: Present: RRR, +S1, +S2 - GI/Abdominal GI/Abdominal exam: Present: normal bowel sounds, soft, tenderness (epigastric, RUQ, LUQ). Absent: distended, guarding, rebound - Extremities Exam Extremities exam: Present: warm. Absent: pedal edema, tenderness - Back Exam Back exam: Present: normal inspection. Absent: CVA tenderness (L), CVA tenderness (R), tenderness - Neurological Exam Neurological exam: Present: alert, oriented X3, no focal deficits. Absent: altered, motor sensory deficit - Psychiatric Psychiatric exam: Present: anxious, normal mood - Skin Skin exam: Present: dry, normal color, warm Internal Med - H&P Results - Labs CBC & Chem 7: 03/16/17 18:37 03/16/17 18:37 <Jeremias Sewell - Last Filed: 03/17/17 03:33> Date of Encounter: 03/16/17 Internal Medicine - H&P: HPI History of present illness: Ms. Staton is a 61 year old female All Systems PM: A 10-system review of systems was performed and is negative for pertinent findings except as documented above in the HPI. - Constitutional Vitals: Temp Pulse Resp BP Pulse Ox 98.2 F 73 16 156/64 96 03/17/17 01:16 03/17/17 01:16 03/17/17 01:16 03/17/17 01:16 03/17/17 01:16 Internal Med - H&P Results - Labs CBC & Chem 7: 03/17/17 01:36 03/17/17 01:36 Labs: Short CBC 03/17/17 Range/Units 01:36 WBC 28.5 H (4.3-11.1) K/mcL Hgb 13.4 D (11.5-15.4) g/dL Hct 38.8 (35.3-44.9) % Plt Count 339 (140-400) K/mcL Neutrophils # 25.4 H (1.6-8.9) K/mcL BMP 03/17/17 01:36 Sodium 138 Potassium 3.8 Chloride 106 Carbon Dioxide 25 BUN 18 Creatinine 0.73 Glucose 198 H Calcium 7.9 L D Liver Function 03/17/17 Range/Units 01:36 Total Bilirubin 0.4 (0.2-1.2) mg/dL AST 10 (5-34) Units/L ALT 22 (0-55) Units/L Alkaline Phosphatase 50 (38-126) Units/L Albumin 2.9 L D (3.5-5.0) g/dL - Attending Attestation Patient was independently and personally seen and plan discussed with the resident. She was admitted recently for the same problem. She was sent home on Cipro and Flagyl. She has returned with abdominal pain nausea vomiting. Abdominal pain is in the epigastrium as well as in right flank. She was started on Cipro and Flagyl. IV fluids started. CT abdomen showed enteritis involving duodenum and jejunum as well as inflammation of pancreas. I will order lipase and amylase and keep her nothing by mouth and involve gastroenterology. She has right flank pain but CT did not show any hydronephrosis. Need to be watched closely.
[2017-03-16] MEDS ORDERED: Naloxone 0.4 MG/ML INJ IVP PRN (22:07)
[2017-03-16] MEDS ORDERED: *HR* Morphine 2 MG/ML SYRINGE IVP PRN (22:07)
[2017-03-16] MEDS ORDERED: Dextrose Gel 15 GM PO PRN ×2 (22:14)
[2017-03-16] MEDS ORDERED: D5% in Water 1,000 ML IVC PRN (22:14)
[2017-03-16] MEDS ORDERED: *HR* Dextrose 50 % in Water (Syg) 50 ML SYRINGE IVP PRN (22:14)
[2017-03-16] MEDS ORDERED: Pantoprazole 40 MG VIAL IVP SCH (22:15)
[2017-03-16] MEDS ORDERED: 0.9 % Sodium Chloride 1,000 ML IVC SCH (22:15)
[2017-03-16] MEDS ORDERED: 0.9 % Sodium Chloride 1,000 ML ONE (22:52)
[2017-03-16] MEDS ORDERED: Ondansetron 4 MG/2 ML VIAL ONE (22:52)
[2017-03-16] MEDS: 0.9 % Sodium Chloride 1,000 ML IVC SCH (23:03)
[2017-03-16] MEDS: Insulin LISPRO 300 UNITS/3 ML VIAL SQ SCH (23:04)
[2017-03-16] MEDS: *HR* HYDROmorphone (PF) 1 MG/ML SYRINGE IVP PRN (23:08)
[2017-03-16] MEDS ORDERED: Pantoprazole 80 MG in 0.9 % Sodium Chloride 50 ML IVPB ONE (23:09)
[2017-03-16] MEDS ORDERED: Pantoprazole 40 MG VIAL IVP ONE (23:37)
[2017-03-17] MEDS: Levofloxacin 750 MG/150 ML 750 MG/150 ML BAG IVPB SCH ×2 (00:15→09:44)
[2017-03-17] MEDS: Insulin DETEMIR 100 UNIT/ML X5UNITS SQ SCH ×2 (00:15→21:11)
[2017-03-17] MEDS: Nicotine 14 MG PATCH.TD24 TD SCH ×2 (00:26→09:44)
[2017-03-17] MEDS: MetroNIDAZOLE 500 MG/100 ML 500 MG/100 ML BAG IVPB SCH ×5 (00:39→23:36)
[2017-03-17] MEDS: *HR* Promethazine 25 MG/ML VIAL IVP PRN (01:41)
[2017-03-17 01:53] LABS: Basophils % 0.2 %; Mean Corpuscular HGB Conc 34.5 g/dL (31.6-35.5)
[2017-03-17 01:54] LABS: Basophils # 0.1 K/mcL (0.0-0.2); Hematocrit 38.8 % (35.3-44.9); Hemoglobin 13.4 g/dL (11.5-15.4); Immature Granulocytes % 1.9 % (0-4); Lymphocytes % 3.4 %; Mean Corpuscular Hemoglobin 30.3 pg (28.0-33.3); Mean Corpuscular Volume 87.8 fL (83.0-100.0); Mean Platelet Volume 9.8 fL (9.4-12.4); Monocytes # 1.5 K/mcL (0.0-1.3); Monocytes % 5.4 %; Neutrophils # 25.4 K/mcL (1.6-8.9); Platelet Count 339 K/mcL (140-400); Red Blood Count 4.42 M/mcL (3.82-4.97); Segmented Neutrophils % 89.1 %
[2017-03-17] MEDS: Pantoprazole 40 MG in 0.9 % Sodium Chloride Mini Bag 100 ML IVC SCH ×5 (02:06→23:41)
[2017-03-17 02:10] LABS: Alanine Aminotransferase 22 Units/L (0-55); Albumin/Globulin Ratio 1.2 (1.1-2.2); Alkaline Phosphatase 50 Units/L (38-126); Aspartate Amino Transferase 10 Units/L (5-34); BUN/Creatinine Ratio 25 (6-26); Bilirubin,Total 0.4 mg/dL (0.2-1.2); Blood Urea Nitrogen 18 mg/dL (7-20); Carbon Dioxide 25 mEq/L (19-29); Chloride 106 mEq/L (98-109); Globulin 2.5 g/dL (2.4-3.5); Glucose 198 mg/dL (70-99); Osmolality,Calculated 293 (280-300); Potassium 3.8 mEq/L (3.5-4.5); Sodium 138 mEq/L (136-145); eGFR For African Americans > 60 (> 60); eGFR For Non-African Americans > 60 (> 60)
[2017-03-17 02:12] LABS: Albumin 2.9 g/dL (3.5-5.0); Calcium 7.9 mg/dL (8.6-10.8); Total Protein 5.4 g/dL (6.0-8.3)
[2017-03-17 02:15] LABS: Hypersegmented Neutrophils Present (Not Present); Platelet Estimate Normal (Normal); Reactive Lymphocytes Present (Not Present); Smudge Cells Present (Not Present)
[2017-03-17 04:38] LABS: INR 1.1
[2017-03-17 04:41] LABS: Activated Partial Thrombo Time 30.5 Seconds (26.0-36.0)
[2017-03-17 04:48] LABS: Magnesium 1.5 mg/dL (1.6-2.6); Phosphorous 2.1 mg/dL (2.3-4.7)
[2017-03-17] MEDS ORDERED: Magnesium Sulfate 2 GM in D5% in Water 100 ML IVPB ONE (06:27)
[2017-03-17] MEDS: Insulin LISPRO 300 UNITS/3 ML VIAL SQ SCH ×4 (07:52→21:11)
[2017-03-17] MEDS ORDERED: Potassium Phosphate 44 MEQ in 0.9 % Sodium Chloride 250 ML IVPB ONE (08:03)
[2017-03-17] MEDS: Gabapentin 300 MG CAPSULE PO SCH ×3 (08:16→21:09)
[2017-03-17] MEDS ORDERED: Lidocaine -MPF 2% 5 ML VIAL INFILT ONE (08:26)
[2017-03-17] MEDS ORDERED: *HR* Propofol 200 MG/20 ML VIAL IVP ONE (08:27)
--- NOTE | 2017-03-17 11:29 | Anesthesia Evaluation PreOp ---
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: Denies Any Significant HX Other Medical History: Diabetes Type II, GERD Anesthesia History: No Prior Anesthetic Complications, Past Anesthesia (breast surgery) Alcohol Use: none Drug use: none Medications and Allergies Cyclobenzaprine [Flexeril] 10 mg PO TID PRN 10/12/15 [History] Insulin LISPRO [Humalog Kwikpen U-100] 10 unit SQ TIDWM 11/30/15 [History] Gabapentin [Neurontin] 600 mg PO TID 07/01/16 [History] Omeprazole 40 mg PO HS 07/01/16 [History] Insulin DETEMIR [Levemir] 45 unit SQ HS 03/04/17 [History] 3 Allergy/AdvReac Type Severity Reaction Status Date / Time cephalexin [From Keflex] Allergy Difficulty Verified 03/16/17 17:57 Breathing - Meds/Allergy Pre-op Review Medications Reviewed: Yes Allergies Reviewed: Yes Beta Blockers on Current Med List: No Anesthesia Results - Labs 03/17/17 01:36 03/17/17 01:36 - Imaging EKG: report reviewed ( Interpretive Statements SINUS RHYTHM RIGHT ATRIAL ENLARGEMENT LEFT ATRIAL ENLARGEMENT Electronically Signed On 03-05-2017 18:49:45 EDT by Miguel Marcelo MD) Anesthesia Exam Selected Entries 03/17/17 03:52 03/17/17 07:22 Temperature 98.4 F Temperature Source Oral Pulse Rate 68 Respiratory Rate 15 Blood Pressure 147/61 124/69 O2 Sat by Pulse Oximetry 93 - HEENT Mallampati: II Teeth: Missing, Poor dentition Oral Opening: Greater than 3 - 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
--- NOTE | 2017-03-17 11:43 | Internal Med Progress Note ---
Date of Encounter: 03/17/17 Time of Encounter: 10:50 - Assessment and plan (1) Gastroenteritis Current Visit: Yes Status: Acute Assessment and plan: Patient presented with nausea, vomiting and epigastric pain. CT abdomen/pelvis concerning for enteritis with adjacent to pancreatic inflammation. Patient has been started on bowel rest, IV hydration, IV protonix drip, IV antibiotics- Levaquin and Flagyl. GI consult appreciated. Underwent EGD, that shows esophagitis/duodenitis with ulcers- erythematous mucosa of lower third of esophagus and duodenum along with nonbleeding cratered duodenal ulcer and some mucosal bleeding. Continue PPI and Carafate. F/up biopsies. MRCP per GI recommendations to further evaluate pancreas. (2) Leukocytosis Current Visit: Yes Status: Acute Assessment and plan: was evaluated by Hematology during recent admission for leukocytosis, thought to be related to sepsis. Currently again noted to have leukocytosis with neutrophil predominance, improving slowly. Continue to monitor, likely due to underlying esophagitis and duodenitis. Qualifiers: Leukocytosis type: unspecified Qualified Code(s): D72.829 - Elevated white blood cell count, unspecified (3) Hypokalemia Current Visit: Yes Status: Acute Assessment and plan: serum potassium improved. Monitor Mg and P and replete as needed. (4) Type 2 diabetes mellitus Current Visit: Yes Status: Chronic Assessment and plan: Accucheck blood glucose monitoring with sliding scale insulin as needed. 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 - Subjective Interval history: Continues to have nausea and epigastric discomfort, radiating to her back; no fever/chills, vomiting, diarrhea; had diarrhea that resolved since about a week; - Constitutional Vitals: Temp Pulse Resp BP Pulse Ox 98.4 F 64 16 127/59 98 03/17/17 11:29 03/17/17 11:29 03/17/17 11:29 03/17/17 11:29 03/17/17 11:29 General appearance: Present: cooperative, A&O X 3, answers questions appropriately - Respiratory Respiratory exam: Present: CTAB. Absent: accessory muscle use, rales, rhonchi, wheezes - Cardiovascular Cardiovascular exam: Present: RRR, +S1, +S2. Absent: diastolic murmur, gallop, rubs, systolic murmur - GI/Abdominal GI/Abdominal exam: Present: distended, normal bowel sounds, soft, no peritoneal signs. Absent: tenderness - Extremities Exam Extremities exam: Present: full ROM, warm, radial pulses palpable and symmetrical. Absent: calf tenderness, cyanotic, pedal edema - Neurological Exam Neurological exam: Present: CN II-XII intact, oriented X3, no focal deficits. Absent: pronater drift, facial droop, speech deficit Internal Medicine: Result - Labs CBC & Chem 7: 03/17/17 01:36 03/17/17 01:36 - ABG Interpretation ABG results: PT/INR, D-dimer PT 12.0 Seconds (9.4-12.1) 03/17/17 04:18 - VTE Documentation of Mechanical Device: Intermittent pneumatic compression device Consult Discharge Plan - Plan Referrals: Abraham Toth DO [Primary Care Provider] -
--- NOTE | 2017-03-17 14:28 | Gastroenterology Consult Note ---
<Sarahi Michael - Last Filed: 03/17/17 14:44> Date of Encounter: 03/17/17 Time of Encounter: 10:15 - Assessment and plan (1) Abdominal pain Status: Acute Assessment and plan: Pt has chronic and recurrent abdominal pain. EGD done which showed esophageal and duodenal ulcers. Continue PPI, will add carafate. Biopsies are pending. Recently treated with cipro/flagyl will send stool for C-diff. Qualifiers: Abdominal location: generalized Qualified Code(s): R10.84 - Generalized abdominal pain (2) Pancreatic abnormality Status: Acute Assessment and plan: CT abdomen shows some inflammation around pancreas will order MRCP to rule out pancreatic malignancy. Will also order CEA and CA 19-9. Lipase and LFTs are normal, will monitor. (3) Nausea and vomiting in adult patient Status: Acute Assessment and plan: EGD shows duodenal and esophageal ulcers, continue PPI, add carafate, continue zofran. Advance diet as tolerated. - Time Spent With Patient Total time spent is greater than 50% in coordination of care (as documented) at patient's floor/unit and/or counseling patient: GI History of Present Illness - Data of Consult Patient: known to practice within the last 3 years Consult date: 03/17/17 Requesting Physician: Basilia Rodriguez MD - Consult Narrative Reason for consult: nause and vomiting History of present illness: Ms. Staton is a 61 year old female with a PMH of COPD,DM, GERD, depression, and gastritis that presented to the ED c/o abdominal pain, nausea, vomiting and diarrhea for the past 4 days. She was most recently hospitalized 03/04/17 with similiar symptoms and after which she completed 5 days of Cipro/Flagyl. She had an endoscopy on 10/12/15 which revealed esophagitis, gastritis and duodenitis ( gastropathy and peptic duodenitis on pathology). Last colonoscopy 11/30/15 revealed colon polyps (hyperplastic). CT of the abdomen and pelvis revealed acute enteritis predominately involving the duodenum and proximal jejunum, mild secondary pancreatic inflammation, with no obstruction, perforation, or abscess. She reports the abdominal pain is dull, cramping, and worse with laying flat. Pain is increased with eating. She had several episodes of diarrhea on Monday but reports no BM since then. She denies any blood in stool. She denies fever or chills. She denies sick contacts. She stated she was unable to keep any food or liquids down. She denies any ETOH or IVDU, pt is a current smoker. Colonoscopy: 11/30/15 revealed colon polyps (hyperplastic).2012 - [facility] - multiple polyps - repeat 3 years EGD: 10/12/15 which revealed esophagitis, gastritis and duodenitis (gastropathy and peptic duodenitis on pathology). 2013 - [facility] - gastritis, esophagitis, duodenitis NSAIDS/ASA: denies Anticoagulants: denies Past Med Surg Social Fam HX - Past Medical History Medical history: arthritis, COPD, diabetes, GERD, other Psychiatric history: anxiety, depression - Past Surgical History Surgical History: breast surgery (Benign lump removed from right breast) - Social History Smoking Status: Current every day smoker Packs per day: 1 Smokeless Tobacco Status: No Alcohol use: none Drug use: none - Family History Father Living Status: Hx Family Cancer: Yes (lymphoma) Sister Living Status: Hx Family Cancer: Yes (breast cancer) Review of Systems: GI: as per [facility] GENERAL: denies fever, or chills EYES: denies yellow discoloration ENT: denies pain with swallowing or difficulty swallowing CARDIO: denies chest pain, palpitations RESP: Shortness of breath with exertion : denies change in color of urine NEURO: weakness HEME: Denies any bruising MS: chronic joint pain and back pain. DERM: denies rash or itching PSYCH: history of anxiety and depression - Constitutional Vitals: Temp Pulse Resp BP Pulse Ox 98.4 F 64 16 127/59 98 03/17/17 11:29 03/17/17 11:29 03/17/17 11:29 03/17/17 11:29 03/17/17 12:15 Exam: CONSTITUTIONAL:~alert but drowsy, no acute distress, chronically ill appearing.~ HEAD:~normocephalic.~EYES:~no jaundice.~NECK:~no obvious swelling.~HEART:~ regular rate and rhythm, no murmurs.~LUNGS:~fair air entry, bilaterally.~ABDOMEN :~non distended, soft, tender, worse to RUQ and epigastric areas, no masses palpable, no organomegaly.~RECTAL EXAM:~Deferred.~EXTREMITIES:~no clubbing, cyanosis or edema.~SKIN:~pallor noted, no stigmata of chronic liver disease.~ NEUROLOGIC:~no obvious focal defect.~~~~ Results - Labs CBC & Chem 7: 03/17/17 01:36 03/17/17 01:36 Labs: Last Result Calcium 7.9 mg/dL (8.6-10.8) L D 03/17/17 01:36 Entire Visit Hgb 13.4 g/dL (11.5-15.4) D 03/17/17 01:36 Hct 38.8 % (35.3-44.9) 03/17/17 01:36 PT 12.0 Seconds (9.4-12.1) 03/17/17 04:18 Total Bilirubin 0.4 mg/dL (0.2-1.2) 03/17/17 01:36 AST 10 Units/L (5-34) 03/17/17 01:36 ALT 22 Units/L (0-55) 03/17/17 01:36 Lipase < 10 Units/L (8-78) 03/16/17 18:37 Carcinoembryonic Ag 3.5 ng/mL (0-5.0) 03/17/17 11:01 - ABG ABG results: PT/INR, D-dimer PT 12.0 Seconds (9.4-12.1) 03/17/17 04:18 Consult Discharge Plan - Plan Additional Instructions: Please follow up with your primary care physician within five days after your discharge from the hospital. Please follow up with Gastroenterology within one week after your discharge from the hospital Your home dose of Omeprazole has been increased to twice a day Carafate four times a day before meals and at bedtime has been added to your home medications continue oral antibiotics as prescribed Resume your home medications as prescribed by your primary care physician. please continue with a soft, bland diet. Referrals: Abraham Toth DO [Primary Care Provider] - 03/27/17 9:00 am Bebeto Almanza MD [Partnered Physician] - (Web Request Entered. Thank you.) Prescriptions: levoFLOXacin [Levaquin] 500 mg PO DAILY #7 tablet Lisinopril [Zestril] 5 mg PO DAILY #30 tablet metroNIDAZOLE [Flagyl] 500 mg PO TID #25 tablet Omeprazole 40 mg PO BID #60 tablet. Sucralfate [Carafate] 1 gm PO QIDA #40 tablet <Carson Carlin - Last Filed: 03/21/17 08:17> Date of Encounter: 03/17/17 - Time Spent With Patient Total time spent is greater than 50% in coordination of care (as documented) at patient's floor/unit and/or counseling patient: GI History of Present Illness - Data of Consult Requesting Physician: Basilia Rodriguez MD - Consult Narrative History of present illness: Ms. Staton is a 61 year old female - Constitutional Vitals: Temp Pulse Resp BP Pulse Ox 98.0 F 69 18 171/64 95 03/20/17 14:59 03/20/17 14:59 03/20/17 14:59 03/20/17 14:59 03/20/17 14:59 Results - Labs CBC & Chem 7: 03/19/17 09:03 03/19/17 09:03 Labs: Last Result Calcium 8.1 mg/dL (8.6-10.8) L 03/19/17 09:03 Entire Visit Hgb 11.4 g/dL (11.5-15.4) L 03/19/17 09:03 Hct 33.2 % (35.3-44.9) L 03/19/17 09:03 PT 12.0 Seconds (9.4-12.1) 03/17/17 04:18 Total Bilirubin 0.3 mg/dL (0.2-1.2) 03/19/17 09:03 AST 18 Units/L (5-34) 03/19/17 09:03 ALT 20 Units/L (0-55) 03/19/17 09:03 Lipase < 10 Units/L (8-78) 03/16/17 18:37 Carcinoembryonic Ag 3.5 ng/mL (0-5.0) 03/17/17 11:01 CA 19-9 Antigen 28 U/mL (0-37) 03/17/17 11:01 - ABG ABG results: PT/INR, D-dimer PT 12.0 Seconds (9.4-12.1) 03/17/17 04:18 - Impressions Impressions Abdomen MRI 03/17/17 10:24 IMPRESSION: 1. Cholelithiasis and gallbladder sludge without other MR findings of acute cholecystitis. 2. No biliary duct dilation or choledocholithiasis. 3. Duodenal and jejunal wall thickening with perienteric stranding and fluid suggestive of a neuritis. Peptic ulcer disease could be in the differential for the duodenum. D/ / 03/17/2017 14:33:53 Patricia Melgoza MD / florian Interpreting Provider: Patricia Melgoza MD - Attending Attestation Ms Staton says she hasnt been feeling well for the past month. She was admitted apparently with acute pancreatitis last week and was discharged home. She has a poor appetite has been fatigued and has had nausea with some vomiting. CT reveals thickening of duodenum with peripancreatic inflammatory changes in the uncinnate process. Patient is a diabetic and tumor markers are ordered. Plan an EGD today and MRCP and make further recommendations post both studies. Concerned regarding possibility of underlying malignancy.I have personally examined and interviewed Ms. Staton and reviewed her CT Carson Carlin MD
[2017-03-17] MEDS: 0.9 % Sodium Chloride 1,000 ML IVC SCH ×2 (14:38)
[2017-03-17] MEDS: Sucralfate 1 GM TABLET PO SCH ×2 (15:59→21:09)
[2017-03-17] MEDS: *HR* HYDROmorphone (PF) 1 MG/ML SYRINGE IVP PRN (16:02)
[2017-03-17] MEDS ORDERED: 0.9 % Sodium Chloride 1,000 ML ONE (21:40)
[2017-03-18] MEDS: Pantoprazole 40 MG in 0.9 % Sodium Chloride Mini Bag 100 ML IVC SCH ×5 (04:05→21:21)
[2017-03-18 04:33] LABS: BUN/Creatinine Ratio 17 (6-26); Blood Urea Nitrogen 11 mg/dL (7-20); Calcium 7.7 mg/dL (8.6-10.8); Carbon Dioxide 22 mEq/L (19-29); Chloride 110 mEq/L (98-109); Glucose 72 mg/dL (70-99); Magnesium 1.6 mg/dL (1.6-2.6); Osmolality,Calculated 284 (280-300); Phosphorous 2.3 mg/dL (2.3-4.7); Potassium 3.8 mEq/L (3.5-4.5); Sodium 138 mEq/L (136-145); eGFR For African Americans > 60 (> 60); eGFR For Non-African Americans > 60 (> 60)
[2017-03-18] MEDS: MetroNIDAZOLE 500 MG/100 ML 500 MG/100 ML BAG IVPB SCH ×4 (05:17→23:52)
[2017-03-18] MEDS: *HR* HYDROmorphone (PF) 1 MG/ML SYRINGE IVP PRN ×2 (05:18→20:29)
[2017-03-18 06:06] LABS: Basophils # 0.1 K/mcL (0.0-0.2); Basophils % 0.4 %; Eosinophils # 0.1 K/mcL (0.0-0.6); Eosinophils % 0.7 %; Hematocrit 32.8 % (35.3-44.9); Immature Granulocytes % 0.6 % (0-4); Immature Platelets 6.3 % (1.1-6.1); Lymphocytes # 2.3 K/mcL (0.6-4.6); Lymphocytes % 15.3 %; Mean Corpuscular HGB Conc 33.5 g/dL (31.6-35.5); Mean Corpuscular Hemoglobin 29.3 pg (28.0-33.3); Mean Corpuscular Volume 87.2 fL (83.0-100.0); Mean Platelet Volume 10.3 fL (9.4-12.4); Monocytes % 6.4 %; Neutrophils # 11.7 K/mcL (1.6-8.9); Platelet Count 235 K/mcL (140-400); Red Blood Count 3.76 M/mcL (3.82-4.97); Segmented Neutrophils % 76.6 %
[2017-03-18] MEDS: Nicotine 14 MG PATCH.TD24 TD SCH (09:09)
[2017-03-18] MEDS: Levofloxacin 500 MG/100 ML 500 MG/100 ML BAG IVPB SCH (09:09)
[2017-03-18] MEDS: Gabapentin 300 MG CAPSULE PO SCH ×3 (09:09→20:28)
[2017-03-18] MEDS: Sucralfate 1 GM TABLET PO SCH ×4 (09:09→20:28)
[2017-03-18] MEDS: Insulin LISPRO 300 UNITS/3 ML VIAL SQ SCH ×4 (09:10→20:34)
--- NOTE | 2017-03-18 12:14 | Internal Med Progress Note ---
Date of Encounter: 03/18/17 Time of Encounter: 12:14 - Assessment and plan (1) Enteritis Current Visit: Yes Status: Acute Assessment and plan: s/p EGD-positive for esophageal and duodenal ulcer continue PPI and added Sucrafate pt clinically improving Imagining consistent with enteritis, leukocytosis improving will continue empiric abx advance diet as tolerated IV fluids likely d/c in am once pt tolerating PO intake without any difficulties (2) Pancreatic abnormality Current Visit: Yes Status: Acute Assessment and plan: MRCP done due to concern for malignancy given CT findings of inflammation around the pancreas MRCP reported: 1. Cholelithiasis and gallbladder sludge without other MR findings of acute cholecystitis. 2. No biliary duct dilation or choledocholithiasis. 3. Duodenal and jejunal wall thickening with perienteric stranding and fluid suggestive of a neuritis. Peptic ulcer disease could be in the differential for the duodenum. pt clinically asymptomatic CEA within normal limits outpatient follow up with GI (3) Type 2 diabetes mellitus Current Visit: Yes Status: Chronic Assessment and plan: continue sliding scale insulin algorithm monitor FS and BG ADA diet Qualifiers: Diabetes mellitus complication status: with unspecified complications Diabetes mellitus intermediate card tender insulin use: with prison use Qualified Code(s) : E11.8 - Type 2 diabetes mellitus with unspecified complications; Z79.4 - technician terminal and repeater (current) use of insulin; Z79.4 - technician terminal and repeater (current) use of insulin; Z79.4 - technician terminal and repeater (current) use of insulin; Z79.4 - long-term (current) use of insulin (4) DVT prophylaxis Current Visit: No Status: Acute Assessment and plan: SCD (5) Obesity (BMI 30.0-34.9) Current Visit: Yes Status: Acute (6) Tobacco dependence Current Visit: Yes Status: Chronic - Subjective Interval history: Pt seen and examined at bedside. Resting in bed and reports of feeling better compared to previous day. reports of persistent heart burn which is improving with carafate. Reports of being hungry. No overnight issues reported. reports of resolution of abd pain - Constitutional Vitals: Temp Pulse Resp BP Pulse Ox 98.4 F 56 16 115/71 96 03/18/17 11:18 03/18/17 11:18 03/18/17 11:18 03/18/17 11:18 03/18/17 11:18 General appearance: Present: cooperative, A&O X 3, no acute distress, obese, answers questions appropriately - Head Head exam: Present: atraumatic, normocephalic - Eye Eye exam: Present: conjuntiva pink, sclera anicteric - Respiratory Respiratory exam: Present: CTAB. Absent: accessory muscle use, rales, rhonchi, wheezes - Cardiovascular Cardiovascular exam: Present: RRR, +S1, +S2. Absent: diastolic murmur, gallop, rubs, systolic murmur - GI/Abdominal GI/Abdominal exam: Present: normal bowel sounds, soft, no peritoneal signs. Absent: distended, tenderness - Extremities Exam Extremities exam: Present: warm, radial pulses palpable and symmetrical. Absent : calf tenderness, cyanotic, pedal edema - Neurological Exam Neurological exam: Present: alert, oriented X3 - Psychiatric Psychiatric exam: Present: normal affect, normal mood Internal Medicine: Result - Labs CBC & Chem 7: 03/18/17 05:54 03/18/17 03:46 Labs: Short CBC 03/18/17 Range/Units 05:54 WBC 15.3 H (4.3-11.1) K/mcL Hgb 11.0 L D (11.5-15.4) g/dL Hct 32.8 L (35.3-44.9) % Plt Count 235 (140-400) K/mcL Neutrophils # 11.7 H (1.6-8.9) K/mcL BMP 03/18/17 03:46 Sodium 138 Potassium 3.8 Chloride 110 H Carbon Dioxide 22 BUN 11 Creatinine 0.66 Glucose 72 Calcium 7.7 L - ABG Interpretation ABG results: PT/INR, D-dimer PT 12.0 Seconds (9.4-12.1) 03/17/17 04:18 - Impressions Impressions Abdomen MRI 03/17/17 10:24 IMPRESSION: 1. Cholelithiasis and gallbladder sludge without other MR findings of acute cholecystitis. 2. No biliary duct dilation or choledocholithiasis. 3. Duodenal and jejunal wall thickening with perienteric stranding and fluid suggestive of a neuritis. Peptic ulcer disease could be in the differential for the duodenum. D/ / 03/17/2017 14:33:53 Patricia Melgoza MD / [email or web address] Interpreting Provider: Patricia Melgoza MD - VTE Documentation of Mechanical Device: Intermittent pneumatic compression device Consult Discharge Plan - Plan Referrals: Abraham Toth DO [Primary Care Provider] -
[2017-03-18] MEDS: *HR* Promethazine 25 MG/ML VIAL IVP PRN (16:09)
[2017-03-18] MEDS: 0.9 % Sodium Chloride 1,000 ML IVC SCH (18:18)
[2017-03-18] MEDS: Insulin DETEMIR 100 UNIT/ML X5UNITS SQ SCH (20:29)
[2017-03-19] MEDS: *HR* HYDROmorphone (PF) 1 MG/ML SYRINGE IVP PRN (03:03)
[2017-03-19] MEDS: 0.9 % Sodium Chloride 1,000 ML IVC SCH (03:06)
[2017-03-19] MEDS: Pantoprazole 40 MG in 0.9 % Sodium Chloride Mini Bag 100 ML IVC SCH (03:09)
[2017-03-19] MEDS: MetroNIDAZOLE 500 MG/100 ML 500 MG/100 ML BAG IVPB SCH ×3 (06:21→19:05)
[2017-03-19] MEDS: Sucralfate 1 GM TABLET PO SCH ×4 (06:22→21:58)
[2017-03-19] MEDS: Levofloxacin 500 MG/100 ML 500 MG/100 ML BAG IVPB SCH (09:09)
[2017-03-19] MEDS: Gabapentin 300 MG CAPSULE PO SCH ×3 (09:11→21:58)
[2017-03-19] MEDS: Nicotine 14 MG PATCH.TD24 TD SCH (09:11)
[2017-03-19] MEDS: Insulin LISPRO 300 UNITS/3 ML VIAL SQ SCH ×4 (09:12→22:00)
[2017-03-19 09:47] LABS: Basophils # 0.1 K/mcL (0.0-0.2); Basophils % 0.6 %; Eosinophils # 0.2 K/mcL (0.0-0.6); Eosinophils % 2.3 %; Hematocrit 33.2 % (35.3-44.9); Hemoglobin 11.4 g/dL (11.5-15.4); Immature Granulocytes % 0.9 % (0-4); Lymphocytes # 1.5 K/mcL (0.6-4.6); Lymphocytes % 17.2 %; Mean Corpuscular HGB Conc 34.3 g/dL (31.6-35.5); Mean Corpuscular Hemoglobin 29.5 pg (28.0-33.3); Mean Corpuscular Volume 85.8 fL (83.0-100.0); Mean Platelet Volume 10.4 fL (9.4-12.4); Monocytes # 0.6 K/mcL (0.0-1.3); Monocytes % 6.4 %; Neutrophils # 6.5 K/mcL (1.6-8.9); Platelet Count 247 K/mcL (140-400); Red Blood Count 3.87 M/mcL (3.82-4.97); Segmented Neutrophils % 72.6 %
[2017-03-19 09:56] LABS: Alanine Aminotransferase 20 Units/L (0-55); Albumin 2.7 g/dL (3.5-5.0); Albumin/Globulin Ratio 1.1 (1.1-2.2); Alkaline Phosphatase 45 Units/L (38-126); Aspartate Amino Transferase 18 Units/L (5-34); BUN/Creatinine Ratio 13 (6-26); Bilirubin,Total 0.3 mg/dL (0.2-1.2); Blood Urea Nitrogen 9 mg/dL (7-20); Calcium 8.1 mg/dL (8.6-10.8); Carbon Dioxide 25 mEq/L (19-29); Chloride 106 mEq/L (98-109); Globulin 2.4 g/dL (2.4-3.5); Glucose 118 mg/dL (70-99); Magnesium 1.5 mg/dL (1.6-2.6); Osmolality,Calculated 286 (280-300); Potassium 3.3 mEq/L (3.5-4.5); Sodium 138 mEq/L (136-145); Total Protein 5.1 g/dL (6.0-8.3); eGFR For African Americans > 60 (> 60); eGFR For Non-African Americans > 60 (> 60)
[2017-03-19] MEDS ORDERED: Magnesium Sulfate 1 GM in D5% in Water 100 ML IVPB ONE (12:44)
--- NOTE | 2017-03-19 14:17 | Discharge Summary ---
Date of Encounter: 03/19/17 Time of Encounter: 14:12 - Discharge Diagnosis (1) Enteritis Priority: Primary Status: Acute (2) Pancreatic abnormality Priority: Secondary Status: Acute (3) Type 2 diabetes mellitus Priority: Secondary Status: Chronic Qualifiers: Diabetes mellitus complication status: with unspecified complications Diabetes mellitus detention insulin use: with intermission coordinator use Qualified Code(s) : E11.8 - Type 2 diabetes mellitus with unspecified complications; Z79.4 - group home (current) use of insulin; Z79.4 - group home (current) use of insulin; Z79.4 - group home (current) use of insulin; Z79.4 - director long term care (current) use of insulin (4) DVT prophylaxis Priority: Secondary Status: Acute (5) Obesity (BMI 30.0-34.9) Priority: Secondary Status: Acute (6) Tobacco dependence Priority: Secondary Status: Chronic - Discharge Medications Prescriptions: levoFLOXacin [Levaquin] 500 mg PO DAILY #7 tablet metroNIDAZOLE [Flagyl] 500 mg PO TID #25 tablet Omeprazole 40 mg PO BID #60 tablet. Sucralfate [Carafate] 1 gm PO QIDAC #40 tablet Home Medications: Cyclobenzaprine [Flexeril] 10 mg PO TID PRN 10/12/15 [History] Insulin LISPRO [Humalog Kwikpen U-100] 10 unit SQ TIDWM 11/30/15 [History] Gabapentin [Neurontin] 600 mg PO TID 07/01/16 [History] Insulin DETEMIR [Levemir] 45 unit SQ HS 03/04/17 [History] Omeprazole 40 mg PO BID #60 tablet. 03/19/17 [Rx] Sucralfate [Carafate] 1 gm PO QIDAC #40 tablet 03/19/17 [Rx] levoFLOXacin [Levaquin] 500 mg PO DAILY #7 tablet 03/19/17 [Rx] metroNIDAZOLE [Flagyl] 500 mg PO TID #25 tablet 03/19/17 [Rx] Allergies/Adverse Reactions: 3 Allergy/AdvReac Type Severity Reaction Status Date / Time cephalexin [From Keflex] Allergy Difficulty Verified 03/16/17 17:57 Breathing Procedures/tests Complete & Pending: Procedures Performed prior 72 hours Category Date Time Status MR MRCP [MR abdomen wo con] [MR] Stat MRI 03/17/17 10:24 Draft Date of admission: 03/17/17 08:19 Primary care physician: Abraham Toth, Consults: GI: Dr. Almanza Discharging clinician: Corine Santos Anticipated date of discharge: 03/19/17 - Patient Status Disposition: Home, Self-Care Condition: Good Functional capacity at discharge: independent ambulation Overall status at discharge: patient is back to baseline - Discharge Instructions Follow Up With: Abrhaam Toth, [Primary Care Provider] - Additional Instructions: Please follow up with your primary care physician within five days after your discharge from the hospital. Please follow up with Gastroenterology within one week after your discharge from the hospital Your home dose of Omeprazole has been increased to twice a day Carafate four times a day before meals and at bedtime has been added to your home medications continue oral antibiotics as prescribed Resume your home medications as prescribed by your primary care physician. please continue with a soft, bland diet. - Diet and Activity Activity: resume usual activities as tolerated Diet: other (soft bland diet, avoid acidic, spicy food) Hospital course: Ms. Staton is a 61 year old female with PMH of DM, GERD gastritis who was admitted for management of abdominal pain secondary to enteritis. She was followed by GI and underwent EGD. EGD showed esophagitis/duodenitis with ulcers - erythematous mucosa of lower third of esophagus and duodenum along with nonbleeding cratered duodenal ulcer and some mucosal bleeding. She was started on Carafate, and protonix was continued. She was treated with abx for the enteritis. She responded well to therapy. Her CT abd pelvis had inflammation around the pancreas concerning for malignancy due to which she had a MRCP. MRCP was negative for any pancreatic pathology. At this time pt reports of resolution of her abd pain however states she is only able to tolerate soft foods like mashed potatoes due to the heartburn. Pt is encouraged to continue with bland, soft diet and continue taking carafate and omeprazole. She is hemodynamically stable and will be discharged to home with follow up with PCP and GI. Pt demonstrates understanding of her diagnosis and agrees with the discharge care and plan. - Time Spent with Patient Total time spent providing and/or coordinating discharge services: - Constitutional Vitals: Temp Pulse Resp BP Pulse Ox 97.8 F 62 16 163/80 95 03/19/17 12:02 03/19/17 12:02 03/19/17 12:02 03/19/17 12:02 03/19/17 12:02 General appearance: Present: cooperative, A&O X 3, no acute distress, obese, answers questions appropriately - Head Head exam: Present: atraumatic, normocephalic - Respiratory Respiratory exam: Present: CTAB. Absent: respiratory distress, wheezes - Cardiovascular Cardiovascular exam: Present: RRR, +S1, +S2. Absent: diastolic murmur, gallop, rubs, systolic murmur - GI/Abdominal GI/Abdominal exam: Present: normal bowel sounds, soft, no peritoneal signs. Absent: distended, tenderness - Extremities Exam Extremities exam: Present: warm, radial pulses palpable and symmetrical. Absent : calf tenderness, cyanotic, pedal edema - Neurological Exam Neurological exam: Present: alert, oriented X3 - Psychiatric Psychiatric exam: Present: normal affect, normal mood - VTE Documentation of Mechanical Device: Intermittent pneumatic compression device
[2017-03-19] MEDS: Insulin DETEMIR 100 UNIT/ML X5UNITS SQ SCH (22:01)
[2017-03-20] MEDS ORDERED: 0.9 % Sodium Chloride Mini Bag 100 ML ONE (00:25)
[2017-03-20] MEDS: metroNIDAZOLE 500 MG TABLET PO SCH ×4 (00:28→17:28)
[2017-03-20] MEDS: Pantoprazole 40 MG in 0.9 % Sodium Chloride Mini Bag 100 ML IVC SCH ×3 (00:30→11:33)
[2017-03-20] MEDS: *HR* HYDROmorphone (PF) 1 MG/ML SYRINGE IVP PRN (03:57)
[2017-03-20] MEDS ORDERED: levoFLOXacin 500 MG TABLET PO SCH (09:00)
[2017-03-20] MEDS: Insulin LISPRO 300 UNITS/3 ML VIAL SQ SCH ×3 (09:13→17:25)
[2017-03-20] MEDS: Gabapentin 300 MG CAPSULE PO SCH ×2 (09:46→15:07)
[2017-03-20] MEDS: Sucralfate 1 GM TABLET PO SCH ×3 (09:46→17:28)
[2017-03-20] MEDS: Nicotine 14 MG PATCH.TD24 TD SCH (09:47)
[2017-03-20 15:02] VITALS: BP 171/64
--- NOTE | 2017-03-20 15:14 | Internal Med Progress Note ---
Date of Encounter: 03/20/17 Time of Encounter: 15:12 - Assessment and plan (1) Enteritis Current Visit: Yes Status: Acute (2) Pancreatic abnormality Current Visit: Yes Status: Acute (3) Type 2 diabetes mellitus Current Visit: Yes Status: Chronic Qualifiers: Diabetes mellitus complication status: with unspecified complications Diabetes mellitus penitentiary insulin use: with penitentiary use Qualified Code(s) : E11.8 - Type 2 diabetes mellitus with unspecified complications; Z79.4 - intermediate school teacher (current) use of insulin; Z79.4 - intermediate school teacher (current) use of insulin; Z79.4 - intermediate school teacher (current) use of insulin; Z79.4 - half-way (current) use of insulin (4) DVT prophylaxis Current Visit: No Status: Acute (5) Obesity (BMI 30.0-34.9) Current Visit: Yes Status: Acute (6) Tobacco dependence Current Visit: Yes Status: Chronic - Subjective Interval history: Patient seen and examined at bedside. resting in bed and denies any discomfort pt's discharge was held yesterday due to uncontrolled BP she was started on Lisinopril 5mg PO qd to which she responded appropriately BP better controlled. tolerating PO intake no overnight issues reported she will be discharged to home today - Constitutional Vitals: Temp Pulse Resp BP Pulse Ox 98.0 F 69 18 171/64 95 03/20/17 14:59 03/20/17 14:59 03/20/17 14:59 03/20/17 14:59 03/20/17 14:59 General appearance: Present: cooperative, A&O X 3, no acute distress, obese, answers questions appropriately - Head Head exam: Present: atraumatic, normocephalic - Eye Eye exam: Present: conjuntiva pink, sclera anicteric - Respiratory Respiratory exam: Present: CTAB. Absent: accessory muscle use, rales, rhonchi, wheezes - Cardiovascular Cardiovascular exam: Present: RRR, +S1, +S2. Absent: diastolic murmur, gallop, rubs, systolic murmur - GI/Abdominal GI/Abdominal exam: Present: normal bowel sounds, soft, no peritoneal signs. Absent: distended, tenderness - Extremities Exam Extremities exam: Present: warm, radial pulses palpable and symmetrical. Absent : calf tenderness, cyanotic, pedal edema - Neurological Exam Neurological exam: Present: alert, oriented X3 Internal Medicine: Result - Labs CBC & Chem 7: 03/19/17 09:03 03/19/17 09:03 - ABG Interpretation ABG results: PT/INR, D-dimer PT 12.0 Seconds (9.4-12.1) 03/17/17 04:18 - Impressions Impressions Abdomen MRI 03/17/17 10:24 IMPRESSION: 1. Cholelithiasis and gallbladder sludge without other MR findings of acute cholecystitis. 2. No biliary duct dilation or choledocholithiasis. 3. Duodenal and jejunal wall thickening with perienteric stranding and fluid suggestive of a neuritis. Peptic ulcer disease could be in the differential for the duodenum. D/ / 03/17/2017 14:33:53 Patricia Melgoza MD / lgray Interpreting Provider: Patricia Melgoza MD - VTE Documentation of Mechanical Device: Intermittent pneumatic compression device Consult Discharge Plan - Plan Additional Instructions: Please follow up with your primary care physician within five days after your discharge from the hospital. Please follow up with Gastroenterology within one week after your discharge from the hospital Your home dose of Omeprazole has been increased to twice a day Carafate four times a day before meals and at bedtime has been added to your home medications continue oral antibiotics as prescribed Resume your home medications as prescribed by your primary care physician. please continue with a soft, bland diet. Referrals: Abraham Toth DO [Primary Care Provider] - 03/27/17 9:00 am Bebeto Almanza MD [Partnered Physician] - (Web Request Entered. Thank you.) Prescriptions: levoFLOXacin [Levaquin] 500 mg PO DAILY #7 tablet metroNIDAZOLE [Flagyl] 500 mg PO TID #25 tablet Omeprazole 40 mg PO BID #60 tablet. Sucralfate [Carafate] 1 gm PO QIDAC #40 tablet
[2017-03-21 02:39] LABS: C282Y Hemochromatosis Mutation NEGATIVE; H63D Hemochromatosis Mutation NEGATIVE; HFE Specimen Type WHOLE BLOOD; S65C Hemochromatosis Mutation NEGATIVE
== END 2017-03-20 17:39 | disposition home or self-care (01) | DRG 392 ==
LOC: 3ANU 17:48 → EMEROO 17:48 → SUATTDRO 20:59 → 3ANU 21:30
PROVIDERS: ADMIT Internal Medicine; ATTEND Internal Medicine
PROC: ENDOEBX (2017-03-17 11:30)

== ENCOUNTER 2017-09-10 11:36 | Inpatient (IN) ==
[2017-09-10] MEDS ORDERED: 0.9 % Sodium Chloride 1,000 ML IVC SCH (15:15)
[2017-09-10 16:11] LABS: Segmented Neutrophils % 81.7 %
[2017-09-10 16:12] LABS: Basophils # 0.1 K/mcL (0.0-0.2); Basophils % 0.3 %; Hematocrit 34.6 % (35.3-44.9); Hemoglobin 12.3 g/dL (11.5-15.4); Lymphocytes # 3.3 K/mcL (0.6-4.6); Lymphocytes % 10.5 %; Mean Corpuscular HGB Conc 35.5 g/dL (31.6-35.5); Mean Corpuscular Hemoglobin 28.9 pg (28.0-33.3); Mean Corpuscular Volume 81.4 fL (83.0-100.0); Mean Platelet Volume 10.5 fL (9.4-12.4); Monocytes % 6.5 %; Neutrophils # 25.5 K/mcL (1.6-8.9); Platelet Count 408 K/mcL (140-400); Red Blood Count 4.25 M/mcL (3.82-4.97); Red Cell Distribution Width 13.3 % (11.5-14.5)
[2017-09-10 16:36] LABS: Dohle Bodies Present (Not Present)
[2017-09-10] MEDS ORDERED: Ondansetron 4 MG/2 ML VIAL IVP PRN (16:44)
--- NOTE | 2017-09-10 17:00 | Internal Med History&Physical ---
Date of Encounter: 09/10/17 Time of Encounter: 16:05 Internal Medicine - H&P: HPI Admitted From: Intrahospital Transfer Plans for Post Hospital Care: Home History of present illness: Ms. Staton is a 61 year old transferred from OSH with several days of N/V and 3 bouts of dark black stool this morning. She's had a prior EGD showing esophagitis, duodentis and gastritis and she takes a PPI daily. She was found to have a HGb > 13 with a positive hemacult test. She is not having ches pain but her initial troponin was [id number] with no ischemic changes on her ECG. She does not take anti-Ptl agents, NSAIDS or A/C. She was found to be in ARF with a bun/cr or 111/2.89 compared to last march 13.. A CT-Abd/Pelvis w/o contrast was done wich showed mildly enlarged retroperitoneal LAD as well as a hypodense nodule in the cortex of the left kidney which was described as suspicious for a primary m aglignacy. Also a previously noted RLL nodule was noted to have enlarged. Her WBC count was >34K at the OSH and repeated here and >30K with no signs/sx suggestive of infection. She is not taking steroids. Her LA ws 6.6 but she is hemodynamically stable and does not appear septic. A repeat LA is pending. A UA and Blood cultures are pending. GI was called and serial H&H were ordered. Past Med Surg Social Fam HX - Past Medical History Medical history: arthritis, COPD, diabetes, GERD, hypertension Psychiatric history: anxiety, depression - Past Surgical History Surgical History: breast surgery - Social History Smoking Status: Current every day smoker Packs per day: 1 Smokeless Tobacco Status: No Alcohol use: none Drug use: none - Family History Father Living Status: Hx Family Cancer: Yes (lymphoma) Sister Living Status: Hx Family Cancer: Yes (breast cancer) Internal Medicine - H&P: Meds Cyclobenzaprine [Flexeril] 10 mg PO TID PRN 10/12/15 [History] Insulin LISPRO [Humalog Kwikpen U-100] 10 unit SQ TIDWM 11/30/15 [History] Gabapentin [Neurontin] 600 mg PO TID 07/01/16 [History] Insulin DETEMIR [Levemir] 45 unit SQ HS 03/04/17 [History] Omeprazole 40 mg PO BID #60 tablet. 03/19/17 [Rx] Sucralfate [Carafate] 1 gm PO QIDAC #40 tablet 03/19/17 [Rx] Lisinopril [Zestril] 5 mg PO DAILY #30 tablet 03/20/17 [Rx] Diltiazem CD (24hr) [Cardizem CD] 240 mg PO DAILY 09/10/17 [History] Ipratropium/Albuterol Neb [Duoneb] 3 mg IH Q6H PRN 09/10/17 [History] 3 Allergy/AdvReac Type Severity Reaction Status Date / Time cephalexin [From Keflex] Allergy Difficulty Verified 03/16/17 17:57 Breathing All Systems PM: A 10-system review of systems was performed and is negative for pertinent findings except as documented above in the HPI. - Constitutional Constitutional: no anorexia, no chills, no lethargy - EENT Eyes: no change in vision, no diplopia Ears: no decreased hearing, no ear discharge Nose, mouth and throat: no change in voice, no dysphagia, no nasal congestion, no sinus pain - Cardiovascular Cardiovascular ROS IM: no chest pain, no diaphoresis, no dyspnea, no lightheadedness - Respiratory Respiratory: no cough, no hemoptysis, no stridor - Gastrointestinal Gastrointestinal: heartburn, melena, no bloating, no coffee ground emesis, no constipation, no dysphagia, no early satiety, no hematemesis, no hematochezia - Musculoskeletal Musculoskeletal ROS IM: no joint swelling, no muscle weakness, no myalgias, no numbness, no stiffness - Integumentary Integumentary IM: no erythema, no new lesions, no pruritus, no jaundice - Neurological Neurological ROS: no abnormal gait, no burning sensations, no loss of vision, no paresthesias, no restless legs, no vertigo - Psychiatric Psychiatric: no anxiety, no behavioral changes, no suicidal ideation - Allergic/Immunologic Allergic/Immunologic: no tongue swelling - Constitutional Vitals: Temp Pulse Resp BP Pulse Ox 98.0 F 98 12 137/116 96 09/10/17 14:10 09/10/17 15:10 09/10/17 15:10 09/10/17 15:10 09/10/17 15:10 General appearance: Present: mild distress, A&O X 3, pleasant - Head Head exam: Present: atraumatic, normocephalic - Eye Eye exam: Present: EOMI, PERRL, conjuntiva pink, sclera anicteric Pupils: Present: PERRL - Neck Neck exam general surgery: Present: supple, trachea midline. Absent: tenderness , nuchal rigidity - Respiratory Respiratory exam: Present: CTAB. Absent: accessory muscle use, rales, rhonchi, stridor, wheezes, tachypnea - Cardiovascular Cardiovascular exam: Present: RRR, +S1, +S2. Absent: diastolic murmur, gallop, rubs, systolic murmur - GI/Abdominal GI/Abdominal exam: Present: normal bowel sounds, soft, no peritoneal signs. Absent: distended, tenderness - Extremities Exam Extremities exam: Present: pedal edema, warm. Absent: cyanotic - Neurological Exam Neurological exam: Present: CN II-XII intact, oriented X3, no focal deficits. Absent: pronater drift, facial droop, speech deficit - Skin Skin exam: Present: dry, intact Internal Med - H&P Results - Labs CBC & Chem 7: 09/10/17 16:02 Labs: Short CBC 09/10/17 Range/Units 16:02 WBC 31.2 H* (4.3-11.1) K/mcL Hgb 12.3 (11.5-15.4) g/dL Hct 34.6 L (35.3-44.9) % Plt Count 408 H (140-400) K/mcL Neutrophils # 25.5 H (1.6-8.9) K/mcL - Assessment and plan (1) GIB (gastrointestinal bleeding) Current Visit: Yes Status: Acute Assessment and plan: Dark black stools times three this am Heme positive stool in ER History of esophagitis, duodenitis and gastritis. Pt takes PPI at home Not on anti-Ptl agents or A/C Hgb >13 (last known >14) GI called Suspect possible jimmy bernal tear following multiple bouts of vomiting and now causing melena Given 80 of Protonix in ER Continue 40 mg IVP BID Protonix No A/C (despite elevated troponins) Qualifiers: Gastritis type: unspecified gastritis Qualified Code(s): K29.71 - Gastritis , unspecified, with bleeding (2) Acute blood loss anemia Current Visit: Yes Status: Acute Assessment and plan: Transfuse if Hgb < 7 (>13 now) (3) Nausea & vomiting Current Visit: Yes Status: Acute Assessment and plan: Resolved now Continue Zofran Qualifiers: Vomiting type: unspecified Vomiting Intractability: non-intractable Qualified Code(s): R11.2 - Nausea with vomiting, unspecified (4) Acute kidney injury Current Visit: Yes Status: Acute Assessment and plan: BUN 111 Cr 2.89 Last known Mar 2017 BUN 9 Cr 0.77 Likely secondary to intractable N/V and volume depletion NS at 125 ml/hr Avoid nephrotoxic agents Renal U/S ordered If no significant improvement by am followin hydration consult Nephrologu Repeat BMP in am Анна and Ucr ordered (5) Dehydration Current Visit: Yes Status: Acute (6) Elevated troponin Current Visit: Yes Status: Acute Assessment and plan: She denies chest pain ECG does not show ischemic changes Elevated in setting of ARF Continue trending No A/C given GIB (7) COPD without exacerbation Current Visit: Yes Status: Acute Assessment and plan: No acute exacerbation Continue home medications Code(s): J44.9 - Chronic obstructive pulmonary disease, unspecified (8) Leukocytosis Current Visit: Yes Status: Acute Assessment and plan: >30K WBC with no clear source of infection Not on steroids UA with culture pending Blood cultures pending Cipro plus flagyl started LA 6.6 with repeat pending Pt very stable and does not look septic Qualifiers: Leukocytosis type: unspecified Qualified Code(s): D72.829 - Elevated white blood cell count, unspecified (9) Renal lesion Current Visit: No Status: Acute Assessment and plan: CT-Abd/Pelvis doen at OSH shows a cortical lesion involving the left kidney highly suspicious for primary malignancy. Renal U/S ordered (for both ARF and to evaluate lesion) Retroperitoneal LAd also noted Code(s): N28.9 - Disorder of kidney and ureter, unspecified SNOMED Code(s): [id number] - Time Spent With Patient Total time spent is greater than 50% in coordination of care (as documented) at patient's floor/unit and/or counseling patient: Greater than 35 minutes
[2017-09-10] MEDS: Pantoprazole 40 MG VIAL IVP SCH (17:16)
[2017-09-10] MEDS: 0.9 % Sodium Chloride 1,000 ML IVC SCH (17:16)
[2017-09-10 21:50] LABS: Hematocrit 33.3 % (35.3-44.9); Hemoglobin 11.9 g/dL (11.5-15.4)
[2017-09-10] MEDS ORDERED: *HR* Dextrose 50 % in Water (Syg) 50 ML SYRINGE IVP PRN (22:02)
[2017-09-10] MEDS ORDERED: D5% in Water 1,000 ML IVC PRN (22:02)
[2017-09-10] MEDS ORDERED: Dextrose Gel 15 GM/37.5 ML TUBE PO PRN ×2 (22:02)
--- NOTE | 2017-09-10 22:16 | Internal Medicine Consult Note ---
Date of Encounter: 09/10/17 Time of Encounter: 22:14 - Assessment and Plan (1) Melena Current Visit: Yes Status: Acute Assessment and plan: Her symptoms are consistent with what may be GI bleeding, specifically an upper cause. I am mostly concerned about ulceration at this time. She also maven secure small bowel lesion as well. Her last colonoscopy was roughly a year ago , I do not perceive that being needed at this time. I do agree with her PPI therapy at this time, we will pursue upper endoscopy tomorrow, risks and benefits of procedure have been discussed, she has signed consent. (2) Hypertension Current Visit: Yes Status: Chronic Qualifiers: Hypertension type: essential hypertension Qualified Code(s): I10 - Essential (primary) hypertension (3) Leukocytosis Current Visit: Yes Status: Chronic Assessment and plan: Previous CBCs, have shown some smudge cells, this is most consistent with CLL. No evidence of sepsis, I think I can safely stop antibiotics at this time. Qualifiers: Leukocytosis type: unspecified Qualified Code(s): D72.829 - Elevated white blood cell count, unspecified (4) Type 2 diabetes mellitus Current Visit: No Status: Chronic Qualifiers: Diabetes mellitus usp insulin use: with attic fans mechanic use Diabetes mellitus complication status: with unspecified complications Qualified Code(s) : E11.8 - Type 2 diabetes mellitus with unspecified complications; Z79.4 - penitentiary (current) use of insulin; Z79.4 - art objects salesperson (current) use of insulin; Z79.4 - penitentiary (current) use of insulin; Z79.4 - art objects salesperson (current) use of insulin Internal Medicine - CN: HPI - Data of Consult Patient: new to practice Consult date: 09/10/17 Requesting Physician: Corine Santos MD - Consult Narrative Reason for consult: Melena consistent with possible GI bleeding History of present illness: Ms. Staton is a 61 year old female currently being evaluated at the request of the hospitalist. She presented at [facility] this morning she complained of dark bloody stools, minimal periumbilical pain with this which is now subsided. Minimal nausea no vomiting. No reflux and no anti-inflammatory usage in the past. No alcohol usage either. She does carry history of gastritis and duodenitis, last EGD was roughly 2 months ago. Past Med Surg Social Fam HX - Past Medical History Medical history: arthritis, COPD, diabetes, GERD, hypertension, other (Probable CLL) Psychiatric history: anxiety, depression - Past Surgical History Surgical History: breast surgery - Social History Smoking Status: Current every day smoker Packs per day: 1 Smokeless Tobacco Status: No Alcohol use: none Drug use: none - Family History Father Living Status: Hx Family Cancer: Yes (lymphoma) Sister Living Status: Hx Family Cancer: Yes (breast cancer) Mother Living Status: Cause of : Dementia - Constitutional Constitutional: no anorexia, no chills, no fatigue, no fever(s), no malaise, no weight loss - Cardiovascular Cardiovascular ROS IM: no chest pain, no diaphoresis, no dyspnea, no lightheadedness, no orthopnea, no syncope - Gastrointestinal Gastrointestinal: abdominal pain, loose stools, melena, nausea, no heartburn, no hematemesis, no vomiting - Neurological Neurological ROS: no loss of vision, no memory loss, no tremor(s) Internal Medicine - CN: Meds Cyclobenzaprine [Flexeril] 10 mg PO TID PRN 10/12/15 [History] Insulin LISPRO [Humalog Kwikpen U-100] 10 unit SQ TIDWM 11/30/15 [History] Gabapentin [Neurontin] 600 mg PO TID 07/01/16 [History] Insulin DETEMIR [Levemir] 45 unit SQ HS 03/04/17 [History] Omeprazole 40 mg PO BID #60 tablet. 03/19/17 [Rx] Sucralfate [Carafate] 1 gm PO QIDAC #40 tablet 03/19/17 [Rx] Lisinopril [Zestril] 5 mg PO DAILY #30 tablet 03/20/17 [Rx] Diltiazem CD (24hr) [Cardizem CD] 240 mg PO DAILY 09/10/17 [History] Ipratropium/Albuterol Neb [Duoneb] 3 mg IH Q6H PRN 09/10/17 [History] 3 Allergy/AdvReac Type Severity Reaction Status Date / Time cephalexin [From Keflex] Allergy Difficulty Verified 03/16/17 17:57 Breathing Internal Medicine - CN: Exam - Constitutional Vitals: Temp Pulse Resp BP Pulse Ox 98 F 83 16 125/75 97 09/10/17 21:15 09/10/17 21:15 09/10/17 21:15 09/10/17 21:15 09/10/17 21:15 General appearance IM: Present: A&O X 3, pleasant, no acute distress, obese, answers questions appropriately - Head Head exam: Present: atraumatic - Eye Eye exam: Present: PERRL, conjuntiva pink, sclera anicteric - Neck Neck exam general surgery: Present: supple, trachea midline - Respiratory Respiratory exam: Present: CTAB. Absent: respiratory distress, tachypnea - Cardiovascular Cardiovascular exam IM: Present: RRR, +S1, +S2. Absent: JVD, tachycardia - GI/Abdominal GI/Abdominal exam IM: Present: normal bowel sounds, soft Additional comments: Minimal pain with deep palpation in the upper abdominal area - Rectal Rectal exam: Present: deferred Internal Medicine - CN: Reslt - Labs CBC & Chem 7: 09/10/17 21:43 Labs: Short CBC 09/10/17 09/10/17 Range/Units 16:02 21:43 WBC 31.2 H* (4.3-11.1) K/mcL Hgb 12.3 11.9 (11.5-15.4) g/dL Hct 34.6 L 33.3 L (35.3-44.9) % Plt Count 408 H (140-400) K/mcL Neutrophils # 25.5 H (1.6-8.9) K/mcL Cardiac Enzymes 09/10/17 09/10/17 Range/Units 16:47 21:43 Troponin I 0.03 < 0.03 (< 0.04) ng/mL Consult Discharge Plan - Plan Referrals: Abraham Toth DO [Primary Care Provider] -
[2017-09-11] MEDS ORDERED: MetroNIDAZOLE 500 MG/100 ML 500 MG/100 ML BAG IVPB SCH
[2017-09-11] MEDS: 0.9 % Sodium Chloride 1,000 ML IVC SCH ×2 (01:00→09:34)
[2017-09-11] MEDS ORDERED: Ondansetron 4 MG/2 ML VIAL IVP PRN (02:20)
[2017-09-11] MEDS ORDERED: Ondansetron 4 MG/2 ML VIAL ONE (02:29)
[2017-09-11] MEDS ORDERED: Acetaminophen 325 MG TABLET PO ONE (03:13)
[2017-09-11] MEDS: Acetaminophen 325 MG TABLET PO PRN (03:18)
[2017-09-11] MEDS: Pantoprazole 40 MG VIAL IVP SCH ×2 (06:22→17:14)
[2017-09-11] MEDS: Insulin LISPRO 300 UNITS/3 ML VIAL SQ SCH ×3 (09:34→17:13)
[2017-09-11] MEDS ORDERED: Ipratropium/Albuterol Neb 3 ML IH PRN (10:57)
[2017-09-11] MEDS ORDERED: *HR* Midazolam HCl 5 MG/5 ML VIAL IVP ONE (11:38)
[2017-09-11] MEDS ORDERED: *HR* FentaNYL (PF) 100 MCG/2 ML VIAL ONE (11:39)
[2017-09-11 12:09] LABS: Albumin 3.8 g/dL (3.5-5.7); Albumin/Globulin Ratio 1.7 (1.1-2.2); Bilirubin,Total 0.4 mg/dL (0.3-1.0); Calcium 8.6 mg/dL (8.6-10.3); Globulin 2.2 g/dL (2.4-3.5); Magnesium 1.9 mg/dL (1.6-2.6); Potassium 3.9 mEq/L (3.5-5.1)
--- NOTE | 2017-09-11 12:26 | Internal Medicine Consult Note ---
Date of Encounter: 09/11/17 Time of Encounter: 12:24 - Assessment and Plan (1) Gastric ulcer Current Visit: Yes Status: Acute Assessment and plan: Either related to H. Pylori, or meds. Gastrinoma less likely. Gastrin level checked. Cont. PPI therpy max. strength. Will also order HIDA scan due to protracted N/V Qualifiers: Qualified Code(s): K25.9 - Gastric ulcer, unspecified as acute or chronic, without hemorrhage or perforation (2) Hypertension Current Visit: Yes Status: Chronic Qualifiers: Hypertension type: essential hypertension Qualified Code(s): I10 - Essential (primary) hypertension (3) Leukocytosis Current Visit: Yes Status: Chronic Qualifiers: Leukocytosis type: unspecified Qualified Code(s): D72.829 - Elevated white blood cell count, unspecified (4) Type 2 diabetes mellitus Current Visit: No Status: Chronic Qualifiers: Diabetes mellitus prison insulin use: with terminal gauger supervisor use Diabetes mellitus complication status: with unspecified complications Qualified Code(s) : E11.8 - Type 2 diabetes mellitus with unspecified complications; Z79.4 - care home (current) use of insulin; Z79.4 - care home (current) use of insulin; Z79.4 - care home (current) use of insulin; Z79.4 - care home (current) use of insulin (5) Duodenitis Current Visit: Yes Status: Acute Assessment and plan: Biopsies taken.. somewhat suspicious for Celiac Dx. I will follow up on labs ordered. Internal Medicine - CN: HPI - Data of Consult Requesting Physician: Basilia Rodriguez MD - Consult Narrative History of present illness: Ms. Staton is a 61 year old female Past Med Surg Social Fam HX - Past Medical History Medical history: arthritis, COPD, diabetes, GERD, hypertension, other (Probable CLL) Psychiatric history: anxiety, depression - Past Surgical History Surgical History: breast surgery - Social History Smoking Status: Current every day smoker Packs per day: 1 Smokeless Tobacco Status: No Alcohol use: none Drug use: none - Family History Father Living Status: Hx Family Cancer: Yes (lymphoma) Mother Living Status: Cause of : Dementia Sister Living Status: Hx Family Cancer: Yes (breast cancer) Internal Medicine - CN: Meds Cyclobenzaprine [Flexeril] 10 mg PO TID PRN 05/09/16 [History] Insulin LISPRO [Humalog Kwikpen U-100] 10 unit SQ TIDWM 11/30/15 [History] Gabapentin [Neurontin] 600 mg PO TID 07/01/16 [History] Insulin DETEMIR [Levemir] 45 unit SQ HS 03/04/17 [History] Omeprazole 40 mg PO BID #60 tablet. 03/19/17 [Rx] Sucralfate [Carafate] 1 gm PO QIDAC #40 tablet 03/19/17 [Rx] Lisinopril [Zestril] 5 mg PO DAILY #30 tablet 03/20/17 [Rx] Diltiazem CD (24hr) [Cardizem CD] 240 mg PO DAILY 09/10/17 [History] Ipratropium/Albuterol Neb [Duoneb] 3 mg IH Q6H PRN 09/10/17 [History] 3 Allergy/AdvReac Type Severity Reaction Status Date / Time cephalexin [From Keflex] Allergy Difficulty Verified 03/16/17 17:57 Breathing Internal Medicine - CN: Exam - Constitutional Vitals: Temp Pulse Resp BP Pulse Ox 98.4 F 65 20 128/58 100 09/11/17 12:14 09/11/17 12:14 09/11/17 12:14 09/11/17 12:14 09/11/17 12:14 Internal Medicine - CN: Reslt - Labs CBC & Chem 7: 09/10/17 21:43 09/11/17 11:12 Labs: Short CBC 09/10/17 09/10/17 Range/Units 16:02 21:43 WBC 31.2 H* (4.3-11.1) K/mcL Hgb 12.3 11.9 (11.5-15.4) g/dL Hct 34.6 L 33.3 L (35.3-44.9) % Plt Count 408 H (140-400) K/mcL Neutrophils # 25.5 H (1.6-8.9) K/mcL BMP 09/11/17 11:12 Sodium 139 Potassium 3.9 Chloride 106 Carbon Dioxide 25 BUN 57 H Creatinine 1.13 Glucose 185 H Calcium 8.6 Cardiac Enzymes 09/10/17 09/10/17 09/11/17 Range/Units 16:47 21:43 03:45 Troponin I 0.03 < 0.03 0.03 (< 0.04) ng/mL Liver Function 09/11/17 Range/Units 11:12 Total Bilirubin 0.4 (0.3-1.0) mg/dL AST 10 L (13-39) Units/L ALT 9 (7-52) Units/L Alkaline Phosphatase 44 (34-104) Units/L Albumin 3.8 (3.5-5.7) g/dL Consult Discharge Plan - Plan Referrals: Abraham Toth DO [Primary Care Provider] -
[2017-09-11 13:42] LABS: Basophils # 0.1 K/mcL (0.0-0.2); Basophils % 0.6 %; Eosinophils # 0.1 K/mcL (0.0-0.6); Eosinophils % 0.8 %; Hematocrit 27.7 % (35.3-44.9); Hemoglobin 9.6 g/dL (11.5-15.4); Immature Granulocytes % 0.8 % (0-4); Lymphocytes # 2.6 K/mcL (0.6-4.6); Lymphocytes % 19.5 %; Mean Corpuscular HGB Conc 34.7 g/dL (31.6-35.5); Mean Corpuscular Hemoglobin 29.6 pg (28.0-33.3); Mean Corpuscular Volume 85.5 fL (83.0-100.0); Mean Platelet Volume 10.3 fL (9.4-12.4); Monocytes # 1.1 K/mcL (0.0-1.3); Monocytes % 8.6 %; Neutrophils # 9.1 K/mcL (1.6-8.9); Platelet Count 293 K/mcL (140-400); Red Blood Count 3.24 M/mcL (3.82-4.97); Red Cell Distribution Width 13.5 % (11.5-14.5); Segmented Neutrophils % 69.7 %
[2017-09-11] MEDS ORDERED: Gabapentin 300 MG CAPSULE PO SCH (15:00)
--- NOTE | 2017-09-11 15:22 | Internal Med Progress Note ---
Date of Encounter: 09/11/17 Time of Encounter: 10:40 - Assessment and plan (1) GIB (gastrointestinal bleeding) Current Visit: Yes Status: Acute Assessment and plan: Presented with diarrhea and melena, hemoglobin noted to be 13, positive stool occult blood test. CT abdomen/pelvis showed suspicious renal lesion. GI has been consulted, possible EGD today to evaluate the cause of melena. Continue IV hydration, bowel rest, IV PPI, supportive care. Monitor hemoglobin closely, noted to be 9.6 today. Initial value could have been due to hemoconcentration. Qualifiers: GI bleed type/associated pathology: melena Qualified Code(s): K92.1 - Melena (2) Acute kidney injury Current Visit: Yes Status: Acute Assessment and plan: Likely related to GI bleed and anemia. Serum creatinine improved to 1.1, responding to IV hydration. Avoid new nephrotoxic agents. Follow-up renal ultrasound. (3) Leukocytosis Current Visit: Yes Status: Acute Assessment and plan: ? Related to GI bleed. WBC count improved to 13.1 today. No source of infection so far. Resolved lactic acidosis. Qualifiers: Leukocytosis type: unspecified Qualified Code(s): D72.829 - Elevated white blood cell count, unspecified (4) Elevated troponin Current Visit: Yes Status: Resolved Assessment and plan: Noted to have mild initial troponin leak, likely demand ischemia due to GI bleed. Repeat troponins have been normal. (5) Type 2 diabetes mellitus Current Visit: Yes Status: Chronic Assessment and plan: Blood sugars noted to be elevated. Start basal insulin. Continue Accu-Chek blood glucose monitoring with sliding scale insulin. Currently nothing by mouth for surgery. Qualifiers: Diabetes mellitus long-term insulin use: with vermin exterminator use Diabetes mellitus complication status: with unspecified complications Qualified Code(s) : E11.8 - Type 2 diabetes mellitus with unspecified complications; Z79.4 - long term care social worker (current) use of insulin; Z79.4 - long term care social worker (current) use of insulin; Z79.4 - long term care social worker (current) use of insulin; Z79.4 - half-way (current) use of insulin (6) Hypertension Current Visit: Yes Status: Chronic Assessment and plan: Blood pressure well controlled. Resume home medications. Qualifiers: Hypertension type: essential hypertension Qualified Code(s): I10 - Essential (primary) hypertension (7) COPD (chronic obstructive pulmonary disease) Current Visit: Yes Status: Chronic Assessment and plan: Not in acute exacerbation. Continue when necessary breathing treatments. Not requiring supplemental oxygen. Qualifiers: COPD type: unspecified COPD Qualified Code(s): J44.9 - Chronic obstructive pulmonary disease, unspecified (8) Anxiety and depression Current Visit: Yes Status: Chronic - Time Spent With Patient Total time spent is greater than 50% in coordination of care (as documented) at patient's floor/unit and/or counseling patient: - Subjective Interval history: Feels better; no further episodes of melena overnight; no nausea, vomiting, abdominal pain; no hematochezia or hematemesis; awaiting EGD; - Constitutional Vitals: Temp Pulse Resp BP Pulse Ox 97.3 F L 70 16 117/60 95 09/11/17 13:58 09/11/17 13:58 09/11/17 13:58 09/11/17 13:58 09/11/17 13:58 General appearance: Present: A&O X 3, answers questions appropriately - Respiratory Respiratory exam: Present: CTAB. Absent: accessory muscle use, rales, rhonchi, wheezes - Cardiovascular Cardiovascular exam: Present: RRR, +S1, +S2. Absent: diastolic murmur, gallop, rubs, systolic murmur - GI/Abdominal GI/Abdominal exam: Present: normal bowel sounds, soft, no peritoneal signs. Absent: distended, tenderness - Extremities Exam Extremities exam: Present: full ROM, warm, radial pulses palpable and symmetrical. Absent: calf tenderness, cyanotic, pedal edema - Neurological Exam Neurological exam: Present: CN II-XII intact, oriented X3, no focal deficits. Absent: pronater drift, facial droop, speech deficit Internal Medicine: Result - Labs CBC & Chem 7: 09/11/17 13:02 09/11/17 11:12 Labs: Short CBC 09/10/17 09/10/17 09/11/17 Range/Units 16:02 21:43 13:02 WBC 31.2 H* 13.1 H D (4.3-11.1) K/mcL Hgb 12.3 11.9 9.6 L D (11.5-15.4) g/dL Hct 34.6 L 33.3 L 27.7 L (35.3-44.9) % Plt Count 408 H 293 (140-400) K/mcL Neutrophils # 25.5 H 9.1 H (1.6-8.9) K/mcL BMP 09/11/17 11:12 Sodium 139 Potassium 3.9 Chloride 106 Carbon Dioxide 25 BUN 57 H Creatinine 1.13 Glucose 185 H Calcium 8.6 Cardiac Enzymes 09/10/17 09/10/17 09/11/17 Range/Units 16:47 21:43 03:45 Troponin I 0.03 < 0.03 0.03 (< 0.04) ng/mL Liver Function 09/11/17 Range/Units 11:12 Total Bilirubin 0.4 (0.3-1.0) mg/dL AST 10 L (13-39) Units/L ALT 9 (7-52) Units/L Alkaline Phosphatase 44 (34-104) Units/L Albumin 3.8 (3.5-5.7) g/dL - VTE Documentation of Mechanical Device: Intermittent pneumatic compression device Consult Discharge Plan - Plan Referrals: Abraham Toth DO [Primary Care Provider] -
[2017-09-11] MEDS: Gabapentin 300 MG CAPSULE PO SCH ×2 (16:08→21:34)
[2017-09-11] MEDS ORDERED: Insulin LISPRO 300 UNITS/3 ML VIAL SQ SCH (21:00)
[2017-09-11] MEDS: Insulin DETEMIR 100 UNIT/ML X5UNITS SQ SCH (21:33)
[2017-09-12 00:17] LABS: Sodium, Urine 83.4 mEq/L
[2017-09-12 00:29] LABS: Bilirubin,Urine Negative (Negative); Blood,Urine Negative (Negative); Clarity,Urine Clear (Clear); Color,Urine Yellow (Yellow); Glucose,Urine (UA) 100 mg/dL (Normal); Ketones,Urine Negative (Negative); Leukocyte Esterase,Urine Small (Negative); Nitrite,Urine Negative (Negative); Protein,Urine Negative (Neg-Trace); Specific Gravity,Urine 1.027 (1.010-1.025); Urobilinogen,Urine Normal (Normal)
[2017-09-12 00:32] LABS: Bacteria,Urine None Seen per hpf (None-Few); Hyaline Casts,Urine None Seen per lpf (None-Few); RBC,Urine 0-3 per hpf (0-3); Squamous Epithelial Cell,Urine Many per lpf (None-Few)
[2017-09-12] MEDS: 0.9 % Sodium Chloride 1,000 ML IVC SCH (00:32)
[2017-09-12] MEDS: Acetaminophen 325 MG TABLET PO PRN (04:30)
[2017-09-12] MEDS: Pantoprazole 40 MG VIAL IVP SCH (05:46)
[2017-09-12] MEDS ORDERED: Diltiazem CD (24hr) 240 MG CAPSULE PO SCH (09:00)
--- NOTE | 2017-09-12 09:21 | Event Note ---
Date of Encounter: 09/12/17 Time of Encounter: 09:18 Discussed EGD findings with her.. labs and H. Pylori still pending. I will follow up on these as outpt. as needed. Differential to include: Celiac Gastrinoma Eosinophilic Gastroenteritis Medication effect Idiopathic ulcer Dx. HIDA scan is still pending, given the EGD results this is not likely the problem. I have cut back the Neurontin dose down some to see if this helps from Nausea standpoint. She is improved for the most part. Upon DC would take the PPI to bid. Keep lower dose of Neurontin. NO ASA.
[2017-09-12] MEDS: Insulin LISPRO 300 UNITS/3 ML VIAL SQ SCH ×2 (09:38→11:19)
[2017-09-12] MEDS: Gabapentin 300 MG CAPSULE PO SCH (09:40)
[2017-09-12] MEDS: Insulin DETEMIR 100 UNIT/ML X5UNITS SQ SCH (09:40)
[2017-09-12 09:46] LABS: Basophils # 0.1 K/mcL (0.0-0.2); Basophils % 0.7 %; Eosinophils # 0.3 K/mcL (0.0-0.6); Eosinophils % 2.6 %; Hematocrit 27.3 % (35.3-44.9); Hemoglobin 9.1 g/dL (11.5-15.4); Immature Granulocytes % 0.7 % (0-4); Lymphocytes # 3.1 K/mcL (0.6-4.6); Lymphocytes % 29.2 %; Mean Corpuscular HGB Conc 33.3 g/dL (31.6-35.5); Mean Corpuscular Hemoglobin 29.4 pg (28.0-33.3); Mean Corpuscular Volume 88.3 fL (83.0-100.0); Mean Platelet Volume 10.1 fL (9.4-12.4); Monocytes # 0.8 K/mcL (0.0-1.3); Monocytes % 7.9 %; Neutrophils # 6.2 K/mcL (1.6-8.9); Platelet Count 262 K/mcL (140-400); Red Blood Count 3.09 M/mcL (3.82-4.97); Red Cell Distribution Width 13.6 % (11.5-14.5); Segmented Neutrophils % 58.9 %
[2017-09-12 09:50] VITALS: BP 117/80
[2017-09-12 09:54] LABS: BUN/Creatinine Ratio 28 (6-26); Blood Urea Nitrogen 21 mg/dL (8-23); Calcium 8.6 mg/dL (8.6-10.3); Carbon Dioxide 29 mEq/L (23-29); Chloride 109 mEq/L (98-107); Glucose 101 mg/dL (70-105); Osmolality,Calculated 293 (280-300); Potassium 3.6 mEq/L (3.5-5.1); Sodium 140 mEq/L (136-145); eGFR For African Americans > 60 (> 60); eGFR For Non-African Americans > 60 (> 60)
--- NOTE | 2017-09-12 12:16 | Discharge Summary ---
- NOTES TO OUTPATIENT PROVIDER Notes to Outpatient Provider: Left renal lesion to be followed by outpatient Urology. Started on PPI for nonbleeding gastric ulcer; f/up EGD biopsy; Orders not resulted at time of discharge: Pending orders 09/10/17 16:56 Culture,Blood,Additional [BC] Routine 09/10/17 17:24 Culture,Throat [RM] Routine Streptococcus A Rapid Test [RM] Routine 09/11/17 12:17 H. pylori Urease Culture [RM] Routine 09/11/17 12:19 Surgical Pathology [PTH] Routine 09/11/17 13:02 Celiac Disease Dual Ag Screen Urgent Celiac Disease Reflex [place] Routine Gastrin Routine Date of Encounter: 09/12/17 Time of Encounter: 09:40 - Discharge Diagnosis (1) GIB (gastrointestinal bleeding) Priority: Primary Status: Acute Qualifiers: GI bleed type/associated pathology: gastric ulcer Qualified Code(s): K25.4 - Chronic or unspecified gastric ulcer with hemorrhage (2) Acute kidney injury Priority: Primary Status: Resolved (3) Leukocytosis Priority: Primary Status: Resolved Qualifiers: Leukocytosis type: unspecified Qualified Code(s): D72.829 - Elevated white blood cell count, unspecified (4) Elevated troponin Priority: Primary Status: Ruled-out (5) Type 2 diabetes mellitus Priority: Secondary Status: Chronic Qualifiers: Diabetes mellitus half-way insulin use: with terminal supervisor use Diabetes mellitus complication status: with unspecified complications Qualified Code(s) : E11.8 - Type 2 diabetes mellitus with unspecified complications; Z79.4 - senior care (current) use of insulin; Z79.4 - extermination supervisor (current) use of insulin; Z79.4 - senior care (current) use of insulin; Z79.4 - extermination supervisor (current) use of insulin (6) Hypertension Priority: Secondary Status: Chronic Qualifiers: Hypertension type: essential hypertension Qualified Code(s): I10 - Essential (primary) hypertension (7) COPD (chronic obstructive pulmonary disease) Priority: Secondary Status: Chronic Qualifiers: COPD type: unspecified COPD Qualified Code(s): J44.9 - Chronic obstructive pulmonary disease, unspecified (8) Anxiety and depression Priority: Secondary Status: Chronic (9) Renal lesion Priority: Primary Status: Chronic Hospital course: Ms. Staton is a 61 year old female with the above medical problems, was admitted with nausea, vomiting and melena. Hb was stable, she was started on PPI IV along with bowel rest and IV hydration and supportive care. GI was consulted, got EGD- showed nonbleeding gastric ulcer and polyp, high suspicion porfirio H.pylori, biopsy pending. SHe tolerated oral diet and did not require PRBC transfusion. She also had leukocytosis and mild Troponin elevation at admission, but no source of infection was found, and these values normalized in 1-2 days. This was likely stress-induced and demand ischemia. She had EARL at admission likely due to GI losses and dehydration, normalized with iV hydration. CT abdomen/pelvis showed an incidental finding of hypoechoic left renal lesion; retroperitoneal U/S showed similar findings in upper pole of left kidney, case d /w Urology, and patient got a followup outpatient appointment within a week to f /up on the renal lesion. sHe is medically stable for discharge. Discharge discussed with: patient - Time Spent with Patient Total time spent providing and/or coordinating discharge services: Greater than 30 minutes (45 min) - Discharge Medications Home Medications: Cyclobenzaprine [Flexeril] 10 mg PO TID PRN 10/12/15 [History] Insulin LISPRO [Humalog Kwikpen U-100] 10 unit SQ TIDWM 11/30/15 [History] Insulin DETEMIR [Levemir] 45 unit SQ HS 03/04/17 [History] Omeprazole 40 mg PO BID #60 tablet. 03/19/17 [Rx] Sucralfate [Carafate] 1 gm PO QIDAC #40 tablet 03/19/17 [Rx] Lisinopril [Zestril] 5 mg PO DAILY #30 tablet 03/20/17 [Rx] Diltiazem CD (24hr) [Cardizem CD] 240 mg PO DAILY 09/10/17 [History] Ipratropium/Albuterol Neb [Duoneb] 3 mg IH Q6H PRN 09/10/17 [History] Gabapentin [Neurontin] 300 mg PO TID #30 09/12/17 [Rx] Allergies/Adverse Reactions: 3 Allergy/AdvReac Type Severity Reaction Status Date / Time cephalexin [From Keflex] Allergy Difficulty Verified 03/16/17 17:57 Breathing Date of admission: 09/10/17 18:11 Primary care physician: Abraham Toth, Consults: 09/10/17 14:59 Consult to Gastroenterology [CONS] Routine Consulting Provider: Gastroenterology Marifer Reason for Consult: GIB Time Notified: 15:00 Call Completed: No Discharging clinician: Basilia Rodriguez Anticipated date of discharge: 09/12/17 - Constitutional Vitals: Temp Pulse Resp BP Pulse Ox 97.9 F 65 20 117/80 99 09/12/17 11:27 09/12/17 11:27 09/12/17 11:27 09/12/17 09:43 09/12/17 09:43 General appearance: Present: A&O X 3, answers questions appropriately - Respiratory Respiratory exam: Present: CTAB. Absent: accessory muscle use, rales, rhonchi, wheezes - Cardiovascular Cardiovascular exam: Present: RRR, +S1, +S2. Absent: diastolic murmur, gallop, rubs, systolic murmur - Patient Status Disposition: Home, Self-Care Condition: Good Functional capacity at discharge: independent ambulation Overall status at discharge: patient is progressing back to baseline - Discharge Instructions Instructions: Gastrointestinal Bleeding (DC) Follow Up With: Sarahi Michael [Advanced Practice Nurse] - 09/26/17 2:00 pm Abraham Toth DO [Primary Care Provider] - 09/19/17 1:30 pm Dell Quintero DO [Partnered Physician] - Additional Instructions: F/up with PCP in 1-2 weeks F/up with Urology on 09/18/17 at 1300 F/up with GI in 2-3 weeks - Diet and Activity Activity: resume usual activities as tolerated Diet: diabetic diet, low fat, low cholesterol, low salt diet, other (avoid ASA, NSAIDs) - VTE Documentation of Mechanical Device: Intermittent pneumatic compression device
[2017-09-14 08:32] LABS: Gastrin 363 pg/mL (0-100); Immunoglobulin A (CELIAC) 186 mg/dL (68-408)
--- NOTE | 2017-09-14 10:02 | Event Note ---
Date of Encounter: 09/14/17 Time of Encounter: 10:00 Follow up on Path reports.. she does have H. Pylori. I have left message on answering machine to call me back. Heladio was called to the [facility].. i will plan on breath test for resolution in about 4 weeks from now. Her Gastrin level is somewhat elevated, but most likely secondary to PPI therapy.. will woo this off PPI in the future.
[2017-09-14 12:33] LABS: Tissue Transglutaminase IgA 1 U/mL (0-3)
--- NOTE | 2017-09-15 13:49 | Event Note ---
Date of Encounter: 09/15/17 Time of Encounter: 13:48 Discussed need of Prev Rodrigue for H. Pylori and how to take the meds.
[2017-09-16 10:06] LABS: Celiac Disease Dual Antigen 17 Units (0-19)
== END 2017-09-12 14:10 | disposition home or self-care (01) | DRG 378 ==
LOC: ICNU → SUATTDRO 18:11 → 2ANU 21:15
PROVIDERS: ADMIT Internal Medicine; ATTEND Internal Medicine
PROC: ENDOEBX (2017-09-11 18:00)

== ENCOUNTER 2017-10-05 14:25 | Inpatient (IN) ==
[2017-10-05] MEDS ORDERED: Ondansetron 4 MG/2 ML VIAL IVP ONE (15:05)
--- NOTE | 2017-10-05 15:10 | Emergency Department Note ---
Disposition Clinical Impression: EARL (acute kidney injury), Abnormal EKG, Elevated troponin, SIRS (systemic inflammatory response syndrome) Abdominal pain Qualifiers: Abdominal location: unspecified location Qualified Code(s): R10.9 - Unspecified abdominal pain Disposition: Admitted As Inpatient Condition: Good Referrals: Abraham Toth DO [Primary Care Provider] - Forms: ED Satisfaction Letter Time of Disposition: 19:00 Nausea/Vomiting/Diarrhea HPI - General Chief complaint: ED Nausea/Vomiting/Diarrhea Stated complaint: vomiting Time Seen by Provider: 10/05/17 14:40 Source: patient Mode of arrival: ambulatory Limitations: no limitations Nursing Notes Reviewed: Yes Vital Signs Reviewed: Yes - History of Present Illness HPI Narrative: 61-year-old female history of hypertension diabetes presents an emergency department for vomiting diarrhea and chest pain. She states over the past 24 hours she has been experiencing some generalized abdominal pain with associated of vomiting and nonbloody diarrhea. She reports a history of this and the past which she attributes to her H. pylori infection. She has completed her antibiotic treatment for this. She reports she is of vomited numerous times 2 where she cannot count. She denies any fever or recent illness. She does complaining of some chest discomfort that is not associated with the vomiting. She does believe it is a slow soreness due to the vomiting. She denies any shortness of breath or diaphoresis. No history of cardiac ischemic disease. She is not taken anything for the nausea. Her symptoms are exacerbated anytime she has a meal. She denies any abdominal surgeries. Denies any hemoptysis, hematemesis, bloody stool or blacked tarry stool. An EKG was performed out in triage which is shows some ST changes. Pt Subjective Complaint: nausea, vomiting, diarrhea, abdominal pain - Related Data Home Medications Medication Instructions Recorded Confirmed Cyclobenzaprine [Flexeril] 10 mg PO TID PRN 10/12/15 10/05/17 Insulin DETEMIR [Levemir] 25 unit SQ BID 03/04/17 10/05/17 Diltiazem CD (24hr) [Cardizem CD] 240 mg PO DAILY 09/10/17 10/05/17 Gabapentin [Neurontin] 600 mg PO TID 10/05/17 10/05/17 Previous Rx's Medication Instructions Recorded Lisinopril [Zestril] 5 mg PO DAILY #30 tablet 03/20/17 Allergies Allergy/AdvReac Type Severity Reaction Status Date / Time cephalexin [From Keflex] Allergy Difficulty Verified 03/16/17 17:57 Breathing All systems ED: reviewed and negative except as stated. Review of Systems: As Per HPI Constitutional: Denies: fever, chills ENT ED: Denies: congestion Cardiovascular: Reports: chest pain. Denies: dyspnea on exertion Respiratory: Denies: cough, dyspnea Gastrointestinal: Reports: abdominal pain, nausea, vomiting, diarrhea Genitourinary: Denies: urgency, dysuria Musculoskeletal: Reports: back pain Integumentary: Denies: rash, abrasion Neurological: Denies: headache Past Medical History - Past Medical History Attestation: Yes The following information was validated with the patient. 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 patient denies any chest pain but is complaining of some epigastric and associated nausea. No diaphoresis or shortness of breath. Patient denies history of cardiac ischemic disease. She does have history of chronic kidney disease. She reports being dehydrated over the past several days due to the vomiting and diarrhea. On examination her lungs are clear auscultation bilaterally. Her abdomen is soft with mild tenderness in the epigastric region. Patient was given Zofran to help with her nausea. Given the EKG changes chest pain workup initiated as well as hepatic panel with a lipase to evaluate for possible pancreatitis. - Reevaluation(s) Reevaluation #1: Review the patient's labs she has a leukocytosis with associated tachycardia SIRS criteria. Her platelets and her hemoglobin are high as well to suggest hemoconcentration for possible dehydration. Her creatinine is also elevated 3.6. CT of the abdomen and pelvis was obtained to evaluate for source of infection which did not reveal any intra-abdominal abnormality. Chest x-ray without evidence of pneumonia. Urinalysis is pending. Patient is getting fluid hydration. She is not hypotensive to require aggressive fluid resuscitation at this time. Her lactate is also normal 1.8. At this time there is no clear etiology for her vomiting or diarrhea. She had a right lung nodule that appear stable from prior exam. Patient will require admission for her elevated troponin, abnormal EKG, dehydration and acute kidney injury. Patients in agreement with this plan. She reports improvement with Phenergan and fentanyl. Urinalysis is pending for potential source of infection. She denies any chest pain at this time. Time: 18:40 - Consultations Consultation #1: Spoke to the on-call agricultural technical officer Dr. Tomy Holcomb regarding the EKG and troponin elevation. Would recommend heparin and trending the troponin. Patient denies any chest pain at this time. She denies any bloody stool, black tarry stool, hemoptysis or hematemesis. No contraindications for heparin at this time. Patient will be admitted for further evaluation and management. Time: 18:40 Consultation #2: Spoke with on-call hospitalist brii Horvath to admit for SIRS, dehydration, EARL , elevated troponin. No further orders at this time. Urinalysis is pending for source of infection. Will notify for any abnormal results. Vital Signs Temperature 98.8 F 10/05/17 14:27 Pulse Rate 125 10/05/17 14:27 Respiratory Rate 14 10/05/17 14:27 Blood Pressure 133/84 10/05/17 14:27 O2 Sat by Pulse Oximetry 96 10/05/17 14:27 Temperature 98.8 F 10/05/17 14:27 Pulse Rate 79 10/05/17 18:21 Respiratory Rate 14 10/05/17 18:21 Blood Pressure 169/74 10/05/17 18:21 O2 Sat by Pulse Oximetry 98 10/05/17 18:21 Oxygen Delivery Oxygen Delivery Nasal Cannula Nausea/Vomiting/Diarrhea - MDM Narrative Medical decision making narrative: Patient was discussed with my attending physician who agrees with ED management and final disposition. They independently evaluated the patient. Please refer to their attestation to this encounter for additional information. This note was generated by [employer] voice recognition software and as a result grammatical or spelling errors may occur using this program. - Medical Records Medical records reviewed: Yes I reviewed the patient's medical records. - Lab Data Lab results reviewed: Yes I reviewed the patient's lab results. Result diagrams: 10/05/17 15:29 10/05/17 15:29 Lab Results 10/05/17 10/05/17 10/05/17 Range/Units 14:32 15:29 15:29 WBC 24.7 H (4.3-11.1) K/mcL RBC 5.69 H (3.82-4.97) M/mcL Hgb 16.6 H (11.5-15.4) g/dL Hct 48.1 H (35.3-44.9) % MCV 84.5 (83.0-100.0) fL MCH 29.2 (28.0-33.3) pg MCHC 34.5 (31.6-35.5) g/dL RDW 14.1 (11.5-14.5) % Plt Count 539 H (140-400) K/mcL MPV 10.1 (9.4-12.4) fL Immature Gran % 0.9 (0-4) % Seg Neutrophils % 84.9 % Lymphocytes % 6.0 % Monocytes % 7.9 % Eosinophils % 0.0 % Basophils % 0.3 % Neutrophils # 20.9 H (1.6-8.9) K/mcL Lymphocytes # 1.5 (0.6-4.6) K/mcL Monocytes # 2.0 H (0.0-1.3) K/mcL Eosinophils # 0.0 (0.0-0.6) K/mcL Basophils # 0.1 (0.0-0.2) K/mcL PT (9.4-12.1) Seconds INR APTT (26.0-36.0) Seconds Sodium 138 (136-145) mEq/L Potassium 3.3 L (3.5-5.1) mEq/L Chloride 80 L (98-107) mEq/L Carbon Dioxide 38 H (23-29) mEq/L BUN 38 H (8-23) mg/dL Creatinine 3.60 H (0.60-1.20) mg/dL Est GFR ( Amer) 15 L (> 60) Est GFR (Non-Af Amer) 13 L (> 60) BUN/Creatinine Ratio 11 (6-26) Glucose 294 H (70-105) mg/dL POC Glucose 271 H (70-99) mg/dL Calculated Osmolality 306 H (280-300) Lactic Acid (0.5-2.2) mmol/L Calcium 11.0 H (8.6-10.3) mg/dL Total Bilirubin 0.8 (0.3-1.0) mg/dL Direct Bilirubin 0.2 (0.0-0.2) mg/dL Indirect Bilirubin 0.6 (0.0-1.2) mg/dL AST 14 (13-39) Units/L ALT 12 (7-52) Units/L Alkaline Phosphatase 89 (34-104) Units/L Troponin I 0.04 H* (< 0.04) ng/mL Serum Total Protein 8.9 (6.4-8.9) g/dL Albumin 5.5 (3.5-5.7) g/dL Globulin 3.4 (2.4-3.5) g/dL Albumin/Globulin Ratio 1.6 (1.1-2.2) Lipase 19 (11-82) Units/L Urine Color (Yellow) Urine Clarity (Clear) Urine pH (5.0-8.0) pH Units Ur Specific [place] (1.010-1.025) Urine Protein (Neg-Trace) mg/dL Urine Glucose (UA) (Normal) mg/dL Urine Ketones (Negative) mg/dL Urine Blood (Negative) Urine Nitrite (Negative) Urine Bilirubin (Negative) Urine Urobilinogen (Normal) mg/dL Ur Leukocyte Esterase (Negative) Urine Microscopic RBC (0-3) per hpf Urine Microscopic WBC (0-3) per hpf Ur Squamous Epith Cells (None-Few) per lpf Calcium Oxalate Crystal Urine Bacteria (None-Few) per hpf Hyaline Casts (None-Few) per lpf Ur Culture Indicated? (NO) 10/05/17 10/05/17 10/05/17 Range/Units 15:30 17:01 18:55 WBC (4.3-11.1) K/mcL RBC (3.82-4.97) M/mcL Hgb (11.5-15.4) g/dL Hct (35.3-44.9) % MCV (83.0-100.0) fL MCH (28.0-33.3) pg MCHC (31.6-35.5) g/dL RDW (11.5-14.5) % Plt Count (140-400) K/mcL MPV (9.4-12.4) fL Immature Gran % (0-4) % Seg Neutrophils % % Lymphocytes % % Monocytes % % Eosinophils % % Basophils % % Neutrophils # (1.6-8.9) K/mcL Lymphocytes # (0.6-4.6) K/mcL Monocytes # (0.0-1.3) K/mcL Eosinophils # (0.0-0.6) K/mcL Basophils # (0.0-0.2) K/mcL PT 11.3 (9.4-12.1) Seconds INR 1.1 APTT 38.7 H (26.0-36.0) Seconds Sodium (136-145) mEq/L Potassium (3.5-5.1) mEq/L Chloride (98-107) mEq/L Carbon Dioxide (23-29) mEq/L BUN (8-23) mg/dL Creatinine (0.60-1.20) mg/dL Est GFR ( Amer) (> 60) Est GFR (Non-Af Amer) (> 60) BUN/Creatinine Ratio (6-26) Glucose (70-105) mg/dL POC Glucose (70-99) mg/dL Calculated Osmolality (280-300) Lactic Acid 1.8 (0.5-2.2) mmol/L Calcium (8.6-10.3) mg/dL Total Bilirubin (0.3-1.0) mg/dL Direct Bilirubin (0.0-0.2) mg/dL Indirect Bilirubin (0.0-1.2) mg/dL AST (13-39) Units/L ALT (7-52) Units/L Alkaline Phosphatase (34-104) Units/L Troponin I (< 0.04) ng/mL Serum Total Protein (6.4-8.9) g/dL Albumin (3.5-5.7) g/dL Globulin (2.4-3.5) g/dL Albumin/Globulin Ratio (1.1-2.2) Lipase (11-82) Units/L Urine Color Dark Yellow (Yellow) Urine Clarity Turbid A (Clear) Urine pH 5.0 (5.0-8.0) pH Units Ur Specific [place] 1.026 H (1.010-1.025) Urine Protein 100 H (Neg-Trace) mg/dL Urine Glucose (UA) 100 H (Normal) mg/dL Urine Ketones 15 H (Negative) mg/dL Urine Blood Trace H (Negative) Urine Nitrite Negative (Negative) Urine Bilirubin Moderate H (Negative) Urine Urobilinogen Normal (Normal) mg/dL Ur Leukocyte Esterase Moderate H (Negative) Urine Microscopic RBC 0-3 (0-3) per hpf Urine Microscopic WBC TNTC H (0-3) per hpf Ur Squamous Epith Cells Many H (None-Few) per lpf Calcium Oxalate Crystal Present Urine Bacteria None Seen (None-Few) per hpf Hyaline Casts Few (None-Few) per lpf Ur Culture Indicated? NO. A (NO) - Radiology Data Radiology results reviewed: Yes I reviewed the patient's radiology results. Chest X-Ray 10/05/17 15:05 IMPRESSION: No acute process. D/ / Alberto Melgoza MD / Alberto Melgoza MD Interpreting Provider: Alberto Melgoza MD Abdomen/Pelvis CT 10/05/17 16:46 IMPRESSION: 1. No acute findings in the abdomen or pelvis to account for the patient's nausea and diarrhea. 2. Atherosclerotic disease. 3. Benign left-sided renal cysts. 4. There is a noncalcified pulmonary nodule in a right lower lobe bronchus, stable dating back to 2012, benign. No follow-up imaging is required. D/ / 10/05/2017 18:01:55 Isaac Anderson MD / [facility] Interpreting Provider: Isaac Anderson MD - EKG Data EKG attestation: Yes I reviewed and interpreted this EKG. EKG results narrative: EKG performed 1433 sinus tachycardia 111 beats per minute, normal axis, inverted T-wave concerning for left atrial enlargement. Intervals within normal limits. There is some ST depressions seen in the septal leads that appear new from prior EKG. No ST elevation.
--- NOTE | 2017-10-05 15:14 | Emergency Department Note ---
Disposition Clinical Impression: EARL (acute kidney injury), Abdominal pain, Abnormal EKG, Elevated troponin, SIRS (systemic inflammatory response syndrome) Disposition: Admitted As Inpatient Condition: Good General Adult HPI - General Chief complaint: ED Nausea/Vomiting/Diarrhea Stated complaint: vomiting Time Seen by Provider: 10/05/17 14:40 Source: patient Mode of arrival: ambulatory Limitations: no limitations - History of Present Illness Pain Scale: 6 - Related Data Home Medications Medication Instructions Recorded Confirmed Cyclobenzaprine [Flexeril] 10 mg PO TID PRN 10/12/15 10/05/17 Insulin DETEMIR [Levemir] 25 unit SQ BID 03/04/17 10/05/17 Diltiazem CD (24hr) [Cardizem CD] 240 mg PO DAILY 09/10/17 10/05/17 Gabapentin [Neurontin] 600 mg PO TID 10/05/17 10/05/17 Previous Rx's Medication Instructions Recorded Lisinopril [Zestril] 5 mg PO DAILY #30 tablet 03/20/17 Allergies Allergy/AdvReac Type Severity Reaction Status Date / Time cephalexin [From Keflex] Allergy Difficulty Verified 03/16/17 17:57 Breathing Past Medical History - Past Medical History Medical history: Reports: arthritis, COPD, diabetes, GERD, hypertension, other Surgical history: Reports: breast surgery Psychiatric history: Reports: anxiety, depression 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 - Social History Smoking Status: Current every day smoker Smokeless Tobacco Status: No Alcohol use: Reports: none Drug use: Reports: none Physical Exam - General Limitations: no limitations General appearance: alert, appears intoxicated Course Vital Signs Temperature 98.8 F 10/05/17 14:27 Pulse Rate 125 10/05/17 14:27 Respiratory Rate 14 10/05/17 14:27 Blood Pressure 133/84 10/05/17 14:27 O2 Sat by Pulse Oximetry 96 10/05/17 14:27 Temperature 98.0 F 10/06/17 06:56 Pulse Rate 69 10/06/17 06:56 Respiratory Rate 24 10/06/17 06:56 Blood Pressure 132/73 10/06/17 06:56 O2 Sat by Pulse Oximetry 98 10/06/17 06:56 Oxygen Delivery Oxygen Delivery Nasal Cannula Medical Decision Making - Lab Data Result diagrams: 10/06/17 05:50 10/06/17 01:43 Lab Results 10/05/17 10/05/17 10/05/17 Range/Units 14:32 15:29 15:29 WBC 24.7 H (4.3-11.1) K/mcL RBC 5.69 H (3.82-4.97) M/mcL Hgb 16.6 H (11.5-15.4) g/dL Hct 48.1 H (35.3-44.9) % MCV 84.5 (83.0-100.0) fL MCH 29.2 (28.0-33.3) pg MCHC 34.5 (31.6-35.5) g/dL RDW 14.1 (11.5-14.5) % Plt Count 539 H (140-400) K/mcL MPV 10.1 (9.4-12.4) fL Immature Gran % 0.9 (0-4) % Seg Neutrophils % 84.9 % Lymphocytes % 6.0 % Monocytes % 7.9 % Eosinophils % 0.0 % Basophils % 0.3 % Neutrophils # 20.9 H (1.6-8.9) K/mcL Lymphocytes # 1.5 (0.6-4.6) K/mcL Monocytes # 2.0 H (0.0-1.3) K/mcL Eosinophils # 0.0 (0.0-0.6) K/mcL Basophils # 0.1 (0.0-0.2) K/mcL PT (9.4-12.1) Seconds INR APTT (26.0-36.0) Seconds Sodium 138 (136-145) mEq/L Potassium 3.3 L (3.5-5.1) mEq/L Chloride 80 L (98-107) mEq/L Carbon Dioxide 38 H (23-29) mEq/L BUN 38 H (8-23) mg/dL Creatinine 3.60 H (0.60-1.20) mg/dL Est GFR ( Amer) 15 L (> 60) Est GFR (Non-Af Amer) 13 L (> 60) BUN/Creatinine Ratio 11 (6-26) Glucose 294 H (70-105) mg/dL POC Glucose 271 H (70-99) mg/dL Calculated Osmolality 306 H (280-300) Lactic Acid (0.5-2.2) mmol/L Calcium 11.0 H (8.6-10.3) mg/dL Total Bilirubin 0.8 (0.3-1.0) mg/dL Direct Bilirubin 0.2 (0.0-0.2) mg/dL Indirect Bilirubin 0.6 (0.0-1.2) mg/dL AST 14 (13-39) Units/L ALT 12 (7-52) Units/L Alkaline Phosphatase 89 (34-104) Units/L Troponin I 0.04 H* (< 0.04) ng/mL Serum Total Protein 8.9 (6.4-8.9) g/dL Albumin 5.5 (3.5-5.7) g/dL Globulin 3.4 (2.4-3.5) g/dL Albumin/Globulin Ratio 1.6 (1.1-2.2) Lipase 19 (11-82) Units/L Urine Color (Yellow) Urine Clarity (Clear) Urine pH (5.0-8.0) pH Units Ur Specific [place] (1.010-1.025) Urine Protein (Neg-Trace) mg/dL Urine Glucose (UA) (Normal) mg/dL Urine Ketones (Negative) mg/dL Urine Blood (Negative) Urine Nitrite (Negative) Urine Bilirubin (Negative) Urine Urobilinogen (Normal) mg/dL Ur Leukocyte Esterase (Negative) Urine Microscopic RBC (0-3) per hpf Urine Microscopic WBC (0-3) per hpf Ur Squamous Epith Cells (None-Few) per lpf Calcium Oxalate Crystal Urine Bacteria (None-Few) per hpf Hyaline Casts (None-Few) per lpf Ur Culture Indicated? (NO) 10/05/17 10/05/17 10/05/17 Range/Units 15:30 17:01 18:55 WBC (4.3-11.1) K/mcL RBC (3.82-4.97) M/mcL Hgb (11.5-15.4) g/dL Hct (35.3-44.9) % MCV (83.0-100.0) fL MCH (28.0-33.3) pg MCHC (31.6-35.5) g/dL RDW (11.5-14.5) % Plt Count (140-400) K/mcL MPV (9.4-12.4) fL Immature Gran % (0-4) % Seg Neutrophils % % Lymphocytes % % Monocytes % % Eosinophils % % Basophils % % Neutrophils # (1.6-8.9) K/mcL Lymphocytes # (0.6-4.6) K/mcL Monocytes # (0.0-1.3) K/mcL Eosinophils # (0.0-0.6) K/mcL Basophils # (0.0-0.2) K/mcL PT 11.3 (9.4-12.1) Seconds INR 1.1 APTT 38.7 H (26.0-36.0) Seconds Sodium (136-145) mEq/L Potassium (3.5-5.1) mEq/L Chloride (98-107) mEq/L Carbon Dioxide (23-29) mEq/L BUN (8-23) mg/dL Creatinine (0.60-1.20) mg/dL Est GFR ( Amer) (> 60) Est GFR (Non-Af Amer) (> 60) BUN/Creatinine Ratio (6-26) Glucose (70-105) mg/dL POC Glucose (70-99) mg/dL Calculated Osmolality (280-300) Lactic Acid 1.8 (0.5-2.2) mmol/L Calcium (8.6-10.3) mg/dL Total Bilirubin (0.3-1.0) mg/dL Direct Bilirubin (0.0-0.2) mg/dL Indirect Bilirubin (0.0-1.2) mg/dL AST (13-39) Units/L ALT (7-52) Units/L Alkaline Phosphatase (34-104) Units/L Troponin I (< 0.04) ng/mL Serum Total Protein (6.4-8.9) g/dL Albumin (3.5-5.7) g/dL Globulin (2.4-3.5) g/dL Albumin/Globulin Ratio (1.1-2.2) Lipase (11-82) Units/L Urine Color Dark Yellow (Yellow) Urine Clarity Turbid A (Clear) Urine pH 5.0 (5.0-8.0) pH Units Ur Specific [place] 1.026 H (1.010-1.025) Urine Protein 100 H (Neg-Trace) mg/dL Urine Glucose (UA) 100 H (Normal) mg/dL Urine Ketones 15 H (Negative) mg/dL Urine Blood Trace H (Negative) Urine Nitrite Negative (Negative) Urine Bilirubin Moderate H (Negative) Urine Urobilinogen Normal (Normal) mg/dL Ur Leukocyte Esterase Moderate H (Negative) Urine Microscopic RBC 0-3 (0-3) per hpf Urine Microscopic WBC TNTC H (0-3) per hpf Ur Squamous Epith Cells Many H (None-Few) per lpf Calcium Oxalate Crystal Present Urine Bacteria None Seen (None-Few) per hpf Hyaline Casts Few (None-Few) per lpf Ur Culture Indicated? NO. A (NO) Attestation Statement - Attestation Attestation: I examined this patient and my medical decision-making was reviewed with the PALLIATIVE CARE SPECIALIST/PA/Advanced Practice Nurse/Resident Physician. I agree with the documented findings, disposition and treatment plan as described except to the extent set forth below. The patient presents with abdominal pain as well as chest pain. She does have vomiting and diarrhea. Vomiting started before the chest pain and chest pain started gradually and was not something that occurred at the same time as the vomiting. Patient's does have an EKG which shows sinus tachycardia with a rate of [address] depression concerning for ischemia and compared to previous EKG from 2017 these findings are new. I did examine the patient. On the abdominal exam minimal generalized abdominal pain but soft without rigidity, rebound, guarding. There is no pulsatile abdominal mass. 1514
[2017-10-05 15:48] LABS: Basophils # 0.1 K/mcL (0.0-0.2); Basophils % 0.3 %; Hematocrit 48.1 % (35.3-44.9); Hemoglobin 16.6 g/dL (11.5-15.4); Immature Granulocytes % 0.9 % (0-4); Lymphocytes # 1.5 K/mcL (0.6-4.6); Mean Corpuscular HGB Conc 34.5 g/dL (31.6-35.5); Mean Corpuscular Hemoglobin 29.2 pg (28.0-33.3); Mean Corpuscular Volume 84.5 fL (83.0-100.0); Mean Platelet Volume 10.1 fL (9.4-12.4); Monocytes % 7.9 %; Neutrophils # 20.9 K/mcL (1.6-8.9); Platelet Count 539 K/mcL (140-400); Red Blood Count 5.69 M/mcL (3.82-4.97); Red Cell Distribution Width 14.1 % (11.5-14.5); Segmented Neutrophils % 84.9 %
[2017-10-05 16:08] LABS: Potassium 3.3 mEq/L (3.5-5.1)
[2017-10-05 16:12] LABS: Troponin I 0.04 ng/mL (< 0.04)
[2017-10-05 16:48] LABS: Albumin 5.5 g/dL (3.5-5.7); Albumin/Globulin Ratio 1.6 (1.1-2.2); Bilirubin,Direct 0.2 mg/dL (0.0-0.2); Bilirubin,Indirect 0.6 mg/dL (0.0-1.2); Bilirubin,Total 0.8 mg/dL (0.3-1.0); Globulin 3.4 g/dL (2.4-3.5); Total Protein 8.9 g/dL (6.4-8.9)
[2017-10-05] MEDS ORDERED: Aspirin 81 MG TAB.CHEW PO STA (16:48)
[2017-10-05] MEDS ORDERED: 0.9 % Sodium Chloride 1,000 ML ONE (16:52)
[2017-10-05] MEDS: 0.9 % Sodium Chloride 1,000 ML IVC SCH ×6 (16:55→23:55)
[2017-10-05] MEDS ORDERED: *HR* FentaNYL (PF) 100 MCG/2 ML VIAL IVP ONE (17:08)
[2017-10-05] MEDS ORDERED: *HR* Promethazine 25 MG/ML VIAL IVP ONE (17:09)
[2017-10-05] MEDS ORDERED: *HR* Heparin 5,000 UNIT/ML VIAL IVP PRN ×2 (18:39)
[2017-10-05] MEDS ORDERED: *HR* Heparin 5,000 UNIT/ML VIAL IVP ONE (18:39)
[2017-10-05] MEDS ORDERED: Heparin 25,000 UNIT/500 ML D5W 25,000 UNIT/500 ML BAG IVC SCH (18:45)
[2017-10-05 19:04] LABS: Bilirubin,Urine Moderate (Negative); Blood,Urine Trace (Negative); Clarity,Urine Turbid (Clear); Color,Urine Dark Yellow (Yellow); Glucose,Urine (UA) 100 mg/dL (Normal); Ketones,Urine 15 mg/dL (Negative); Leukocyte Esterase,Urine Moderate (Negative); Nitrite,Urine Negative (Negative); Protein,Urine 100 mg/dL (Neg-Trace); Specific Gravity,Urine 1.026 (1.010-1.025); Urobilinogen,Urine Normal (Normal)
[2017-10-05 19:07] LABS: Bacteria,Urine None Seen per hpf (None-Few); Squamous Epithelial Cell,Urine Many per lpf (None-Few); WBC,Urine TNTC per hpf (0-3)
[2017-10-05 19:28] LABS: Calcium Oxalate Crystals,Urine Present; Hyaline Casts,Urine Few per lpf (None-Few)
[2017-10-05 19:28] LABS: INR 1.1; Prothrombin Time 11.3 Seconds (9.4-12.1)
[2017-10-05 19:29] LABS: RBC,Urine 0-3 per hpf (0-3)
[2017-10-05 19:31] LABS: Activated Partial Thrombo Time 38.7 Seconds (26.0-36.0)
[2017-10-05] MEDS ORDERED: 0.9 % Sodium Chloride 1,000 ML IVC ONE (22:00)
[2017-10-05] MEDS ORDERED: *HR* Dextrose 50 % in Water (Syg) 50 ML SYRINGE IVP PRN (22:02)
[2017-10-05] MEDS ORDERED: Dextrose Gel 15 GM/37.5 ML TUBE PO PRN ×2 (22:02)
[2017-10-05] MEDS ORDERED: D5% in Water 1,000 ML IVC PRN (22:02)
[2017-10-05] MEDS ORDERED: Naloxone 0.4 MG/ML INJ IVP PRN (22:03)
--- NOTE | 2017-10-05 22:10 | Internal Med History&Physical ---
Date of Encounter: 10/06/17 Time of Encounter: 22:08 Internal Medicine - H&P: HPI Chief complaint: nausea and vomiting Admitted From: Emergency Dept Plans for Post Hospital Care: Home History of present illness: Ms. Staton is a 61 year old female with history of hypertension and diabetes who presents to the emergency department for nausea, vomiting, diarrhea and chest pain. She states over the past 24 hours she has been experiencing some generalized abdominal pain with associated of vomiting and nonbloody diarrhea. So many episode of vomiting last couple of days but no hematemesis. She denies any fever or recent illness. Reports chest pain with no radiation during episodes of vomiting. She denies any shortness of breath or diaphoresis. No history of cardiac ischemic disease. Recently finished treatment for H. pylori on the . Was hospitalized last month with similar complaints and had an EGD done with findings gastric ulcer that was non-bleeding. H. pylor was negative but patient reportedly finished treatment for it. An EKG was performed showed some ST depressions in septal and lateral leads. cardiology was contacted and per ED recommended heparin drip. Trops at .04. Labs showed leukocytosis and EARL and hypokalemia. CT abd/pelvis unremarkable. No headache, blurry vision, shortness of breath, fever, chills, urinary symptoms, or neurological symptom. Past Med Surg Social Fam HX - Past Medical History Medical history: arthritis, COPD, diabetes, GERD, hypertension, other Psychiatric history: anxiety, depression - Past Surgical History Surgical History: breast surgery - Social History Smoking Status: Current every day smoker Smokeless Tobacco Status: No Alcohol use: none Drug use: none - Family History Father Living Status: Hx Family Cancer: Yes (lymphoma) Mother Living Status: Sister Living Status: Hx Family Cancer: Yes (breast cancer) Internal Medicine - H&P: Meds Cyclobenzaprine [Flexeril] 10 mg PO TID PRN 10/12/15 [History] Insulin DETEMIR [Levemir] 25 unit SQ BID 03/04/17 [History] Lisinopril [Zestril] 5 mg PO DAILY #30 tablet 03/20/17 [Rx] Diltiazem CD (24hr) [Cardizem CD] 240 mg PO DAILY 09/10/17 [History] Gabapentin [Neurontin] 600 mg PO TID 10/05/17 [History] 3 Allergy/AdvReac Type Severity Reaction Status Date / Time cephalexin [From Keflex] Allergy Difficulty Verified 03/16/17 17:57 Breathing All Systems PM: A 10-system review of systems was performed and is negative for pertinent findings except as documented above in the HPI. Review of systems: All systems reviewed are negative except what is mentioned above. - Constitutional Vitals: Temp Pulse Resp BP Pulse Ox 98.6 F 70 16 141/57 94 10/05/17 21:55 10/05/17 21:55 10/05/17 21:55 10/05/17 21:55 10/05/17 21:55 Exam: GEN: NAD HEENT: AT, NC, No cyanosis, oral mucosa is moist, No JVD Lymphatics: No lymphadenoapthy Eyes: Extrocular muscles intact, anicteric CVS:RRR. S1, S2, No m/r/g RESP: CTAB ABD: Soft, generalized abdominal tenderness. ND, +BS EXT: No edema, No rashes, 2+ DP NEURO: Nonfocal, CN II-XII intact, No focal motor or sensory deficits Psych: Cooperative, Not anxious or depressed Internal Med - H&P Results - Labs CBC & Chem 7: 10/06/17 05:50 10/06/17 01:43 - Assessment and plan (1) EARL (acute kidney injury) Current Visit: Yes Status: Acute Assessment and plan: Likely prerenal. Will hydrate. check labs in am. avoid nephrotoxins. monitor UOP (2) Abnormal EKG Current Visit: Yes Status: Acute Assessment and plan: cardiology reportedly constuled in ED and asked for a heparin drip. no CP. trops mildly elevated at .04 likely demand ischemia. Will check an echo. keep on heparin drip for now. Recent admit for GI bleed but no active bleeding seen. Non bleeding gastric ulcer seen. Given ASA 324. start 81 mg ASA. Tele. check A1c and lipid panel (3) Elevated troponin Current Visit: Yes Status: Acute Assessment and plan: As above (4) Hypokalemia Current Visit: No Status: Acute Assessment and plan: Will replete. check in am. likely GI losses (5) Intractable nausea and vomiting Current Visit: No Status: Acute Assessment and plan: Associated with watery stools. Symptomatic treatment for now. IVF. anti- emetics. CT abd/pelvis nothing acute. Possibly viral gastroenteritis. Check GI panel Qualifiers: Vomiting type: unspecified Qualified Code(s): R11.2 - Nausea with vomiting , unspecified (6) Leukocytosis Current Visit: No Status: Acute Assessment and plan: Possible gastroenteritis. I think most of this is dehydational. Will monitor. afebrile Qualifiers: Leukocytosis type: unspecified Qualified Code(s): D72.829 - Elevated white blood cell count, unspecified (7) Diabetes Current Visit: No Status: Chronic Assessment and plan: Resume home basal insulin dose. Sliding scale insulin. 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
[2017-10-06 01:58] LABS: Basophils # 0.1 K/mcL (0.0-0.2); Basophils % 0.3 %; Eosinophils % 0.2 %; Hematocrit 37.1 % (35.3-44.9); Immature Granulocytes % 0.5 % (0-4); Lymphocytes # 1.8 K/mcL (0.6-4.6); Mean Corpuscular HGB Conc 32.9 g/dL (31.6-35.5); Mean Corpuscular Hemoglobin 29.5 pg (28.0-33.3); Mean Corpuscular Volume 89.8 fL (83.0-100.0); Mean Platelet Volume 9.9 fL (9.4-12.4); Monocytes # 1.6 K/mcL (0.0-1.3); Monocytes % 8.7 %; Neutrophils # 14.9 K/mcL (1.6-8.9); Platelet Count 332 K/mcL (140-400); Red Blood Count 4.13 M/mcL (3.82-4.97); Red Cell Distribution Width 14.1 % (11.5-14.5); Segmented Neutrophils % 80.3 %
[2017-10-06 02:00] LABS: Hemoglobin 12.2 g/dL (11.5-15.4)
[2017-10-06 02:15] LABS: Chol/HDL Ratio 5.6 (0-4.9)
[2017-10-06 02:18] LABS: Calcium 8.2 mg/dL (8.6-10.3); Magnesium 1.5 mg/dL (1.6-2.6); Potassium 3.6 mEq/L (3.5-5.1)
[2017-10-06 02:31] LABS: Thyroid Stimulating Hormone 0.42 mcIU/mL (0.340-5.600)
[2017-10-06] MEDS: Acetaminophen 325 MG TABLET PO PRN (04:21)
[2017-10-06] MEDS: Ondansetron 4 MG/2 ML VIAL IVP PRN ×2 (04:21→10:04)
--- NOTE | 2017-10-06 05:43 | Event Note ---
Date of Encounter: 10/06/17 Time of Encounter: 05:42 Patient had two BM that were bloody totalling about 600 mL. Vitals stable. Will check a CBC STAT. stop heparin drip. c/s GI. Patient had a drop in hgb from earlier labs compared to admission but I think that is for the most part is due to being on IV fluids.
[2017-10-06 06:03] LABS: Basophils # 0.1 K/mcL (0.0-0.2); Basophils % 0.4 %; Eosinophils # 0.1 K/mcL (0.0-0.6); Eosinophils % 0.3 %; Hematocrit 36.4 % (35.3-44.9); Hemoglobin 11.6 g/dL (11.5-15.4); Immature Granulocytes % 0.6 % (0-4); Lymphocytes # 2.5 K/mcL (0.6-4.6); Lymphocytes % 10.3 %; Mean Corpuscular HGB Conc 31.9 g/dL (31.6-35.5); Mean Corpuscular Hemoglobin 28.4 pg (28.0-33.3); Monocytes # 2.3 K/mcL (0.0-1.3); Monocytes % 9.5 %; Neutrophils # 19.4 K/mcL (1.6-8.9); Platelet Count 376 K/mcL (140-400); Red Blood Count 4.09 M/mcL (3.82-4.97); Red Cell Distribution Width 14.1 % (11.5-14.5); Segmented Neutrophils % 78.9 %
[2017-10-06] MEDS ORDERED: *HR* Promethazine 25 MG/ML VIAL IVP ONE (06:43)
[2017-10-06] MEDS: 0.9 % Sodium Chloride 1,000 ML IVC SCH ×3 (07:08→16:40)
[2017-10-06] MEDS: Insulin LISPRO 300 UNITS/3 ML VIAL SQ SCH ×4 (07:24→21:26)
[2017-10-06] MEDS ORDERED: *HR* Propofol 200 MG/20 ML VIAL IVP ONE (07:25)
[2017-10-06 07:37] LABS: Adenovirus F 40/41 PCR Not detected (Not detect); Astrovirus PCR Not detected (Not detect); Campylobacter by PCR Not detected (Not detect); Cryptosporidium by PCR Not detected (Not detect); Cyclospora cayetanensis PCR Not detected (Not detect); E. coli O157 by PCR Not detected (Not detect); Entamoeba histolytica PCR Not detected (Not detect); Enteroaggregative E.coli(EAEC) Not detected (Not detect); Enteropathogenic E.coli(EPEC) Not detected (Not detect); Enterotoxigenic E.coli (ETEC) Not detected (Not detect); Giardia lamblia PCR Not detected (Not detect); Norovirus GI/GII PCR Not detected (Not detect); Plesiomonas shigelloides PCR Not detected (Not detect); Rotavirus A PCR Not detected (Not detect); Salmonella PCR Not detected (Not detect); Sapovirus PCR Not detected (Not detect); Shig/EnteroinvasiveE coli EIEC Not detected (Not detect); Shigalike tox-prod E coli STEC Not detected (Not detect); Vibrio PCR Not detected (Not detect); Vibrio cholerae PCR Not detected (Not detect); Yersinia enterocolitica PCR Not detected (Not detect)
[2017-10-06] MEDS ORDERED: Lidocaine -MPF 2% 2 ML VIAL ONE (07:52)
[2017-10-06] MEDS ORDERED: Tetracaine/Benzocaine/Butamben 200MG/SPRAY (100SPY/BOT) MM ONE (08:21)
[2017-10-06] MEDS ORDERED: Ondansetron 4 MG/2 ML VIAL IVP PRN (08:21)
[2017-10-06] MEDS ORDERED: Simethicone 40 MG/0.6 ML MLS IR ONE (08:21)
--- NOTE | 2017-10-06 08:28 | Anesthesia Evaluation PreOp ---
Date of Encounter: 10/06/17 Time of Encounter: 08:25 - Past History Planned Operation: EGD Cardiac History: HTN, Other (Troponins minimally elevated on admission (0.04), now (0.03). Patient had one episode of chest pain, non-radiating. Denies history of ischemic heart disease.) Pulmonary History: Smoker, COPD Other Medical History: Diabetes Type II, GERD, Other (acute anemia, Hgb went form 16.6 on admission to 11.6 this morning.) Anesthesia History: No Prior Anesthetic Complications, Past Anesthesia (breast sx) Alcohol Use: none Drug use: none Medications and Allergies Cyclobenzaprine [Flexeril] 10 mg PO TID PRN 10/12/15 [History] Insulin DETEMIR [Levemir] 25 unit SQ BID 03/04/17 [History] Lisinopril [Zestril] 5 mg PO DAILY #30 tablet 03/20/17 [Rx] Diltiazem CD (24hr) [Cardizem CD] 240 mg PO DAILY 09/10/17 [History] Gabapentin [Neurontin] 600 mg PO TID 10/05/17 [History] 3 Allergy/AdvReac Type Severity Reaction Status Date / Time cephalexin [From Keflex] Allergy Difficulty Verified 03/16/17 17:57 Breathing - Meds/Allergy Pre-op Review Medications Reviewed: Yes Allergies Reviewed: Yes Beta Blockers on Current Med List: No Anesthesia Results - Labs 10/06/17 05:50 10/06/17 01:43 Anesthesia Exam Selected Entries 10/06/17 06:56 Temperature 98.0 F Pulse Rate 69 Respiratory Rate 24 Blood Pressure 132/73 O2 Sat by Pulse Oximetry 98 Weight: 85.5kg NPO (# of Hours): 8 - HEENT Pupil (Motor): EOMI Mallampati: III Teeth: Missing, Poor dentition Oral Opening: Greater than 3 - PHARMACY CARE COORDINATOR LOC: Oriented PHARMACY CARE COORDINATOR Motor: Normal RUE, Normal LUE, Normal RLE, Normal LLE, Normal Face PHARMACY CARE COORDINATOR Sensory: Normal: RUE, LUE, RLE, LLE, Face - Cardiac Rhythm: Regular Murmur: None - Pulmonary Breath Sounds: bilateral Clear Respiratory Effort: Symmetrical Anesthesia Assess/Plan ASA Score: 3 Modified Adán Scale for Level of Consciousness: Cooperative, oriented, and tranquil Anesthetic Plan: MAC Monitoring Plan: Standard Monitors Recovery Plan: PACU (Patient agrees to proceed.)
[2017-10-06] MEDS ORDERED: Insulin DETEMIR 100 UNIT/ML X5UNITS SQ SCH (09:00)
[2017-10-06] MEDS ORDERED: Aspirin Enteric Coated 81 MG Tablet PO SCH (09:00)
[2017-10-06] MEDS ORDERED: Gabapentin 300 MG CAPSULE PO SCH (09:00)
[2017-10-06 09:01] LABS: Estimated Average Glucose 108 mg/dl; Hemoglobin A1C 5.4 %
--- NOTE | 2017-10-06 09:01 | Electrocardiograph Report ---
[address] [place], [place] [address] Test Date: 2017-10-05 Pat Name: Ester Staton Department: [id number] Room: [facility] Gender: F Guide Delegate: : 1955 Requested By: Sridhar Montoya Order Number: [id number] Reading MD: Miguel Marcelo Measurements Intervals [place] Rate: 111 P: 66 DC: 120 QRS: 38 QRSD: 92 T: 81 QT: 358 QTc: 424 Interpretive Statements SINUS TACHYCARDIA LEFT ATRIAL ENLARGEMENT Electronically Signed On 10-06-2017 8:59:27 EDT by Miguel Marcelo
[2017-10-06] MEDS ORDERED: 0.9 % Sodium Chloride 1,000 ML ONE (09:42)
[2017-10-06 10:17] LABS: Hematocrit 33.3 % (35.3-44.9); Hemoglobin 10.9 g/dL (11.5-15.4)
[2017-10-06] MEDS ORDERED: Pantoprazole 40 MG VIAL IVP ONE (10:19)
--- NOTE | 2017-10-06 10:31 | Gastroenterology Consult Note ---
<Cliff Mehta - Last Filed: 10/06/17 10:29> Date of Encounter: 10/06/17 Time of Encounter: 10:00 - Assessment and plan (1) Nausea & vomiting Current Visit: No Status: Acute Assessment and plan: Continue IV fluids, PPI, and antiemetics. EGD showed esophageal ulcers, non- bleeding erosive gastropathy, duodenal ulcer with adherent clot. No NSAIDs. Qualifiers: Vomiting type: unspecified Vomiting Intractability: unspecified Qualified Code(s): R11.2 - Nausea with vomiting, unspecified (2) Abdominal pain Current Visit: Yes Status: Acute Assessment and plan: History of duodenal ulcers, continue PPI and start Carafate. EGD showed esophageal ulcers, non-bleeding erosive gastropathy, duodenal ulcer with adherent clot. No NSAIDs. Qualifiers: Abdominal location: unspecified location Qualified Code(s): R10.9 - Unspecified abdominal pain (3) Melena Current Visit: No Status: Acute Assessment and plan: Continue PPI and start Carafate. EGD showed esophageal ulcers, non-bleeding erosive gastropathy, duodenal ulcer with adherent clot. No NSAIDs. - Time Spent With Patient Total time spent is greater than 50% in coordination of care (as documented) at patient's floor/unit and/or counseling patient: GI History of Present Illness - Data of Consult Patient: known to practice within the last 3 years Consult date: 10/06/17 Requesting Physician: Shukri Dunbar MD - Consult Narrative Reason for consult: GI Bleed History of present illness: Ms. Staton is a 61 year old female with PMHx of arthritis, COPD, DM, GERD, HTN who presented to the ED with nausea, vomiting, diarrhea and chest pain. She states for 24 hours prior to admission she has been experiencing some generalized abdominal pain with associated of vomiting and nonbloody diarrhea. She was hospitalized last month with similar complaints and had an EGD done with findings non-bleeding gastric ulcer and H pylori positive. She completed treatment for Hpylori on 10/02. CT A/P on admission was unremarkable. Pt had two BMs with melena this AM, and repeat CT A/P shows mild low-attenuation wall thickening to some loops of small bowel to the left upper quadrant involving jejunum and possibly proximal ileum, concerning for nonspecific infectious or inflammatory enteritis. Procedures: EGD 09/11/2017 Dr. Quintero: Gastric ulcer with no stigmata of bleeding , scalloped mucosa in duodenum, H pylori positive. EGD 06/30/2017 Dr. Almanza: salmon colored mucosa-negative for Kennedy's esophagus, 3 benign gastric polyps, H pylori negative. EGD 03/17/2017 Dr. Carlin: esophageal and duodenal ulcers. Colonoscopy 11/30/2015: Multiple hyperplastic polyps. 10/12/2015 EGD: LA Grade B reflux esophagitis, gastritis, duodenitis. NSAIDs: None Anticoagulation: None Past Med Surg Social Fam HX - Past Medical History Medical history: arthritis, COPD, diabetes, GERD, hypertension, other Psychiatric history: anxiety, depression - Past Surgical History Surgical History: breast surgery - Social History Smoking Status: Current every day smoker Smokeless Tobacco Status: No Alcohol use: none Drug use: none - Family History Father Living Status: Hx Family Cancer: Yes (lymphoma) Mother Living Status: Sister Living Status: Hx Family Cancer: Yes (breast cancer) - Gastrointestinal Gastrointestinal: Present: as per HPI - Constitutional Constitutional: as per HPI - EENT Eyes: as per HPI Ears: Present: as per HPI Nose, mouth and throat: Present: as per HPI - Cardiovascular Cardiovascular ROS: Present: as per HPI - Respiratory Respiratory IM: Present: as per HPI - Genitourinary Genitourinary: Absent: change in color, Urinary frequency - Neurological ROS Neurological GI: Present: as per HPI - Hematologic/Lymphatic Hematologic/Lymphatic pediatric: Present: as per HPI - Musculoskeletal Musculoskeletal ROS GI: Present: as per HPI - Integumentary Integumentary GI: Present: as per HPI - Psychiatric ROS Psychiatric GI: Present: as per HPI - Endocrine Endocrine IM: Present: as per HPI - Constitutional Vitals: Temp Pulse Resp BP Pulse Ox 97.6 F 92 18 151/72 92 10/06/17 09:38 10/06/17 09:38 10/06/17 09:38 10/06/17 09:44 10/06/17 09:50 General appearance: Present: cooperative, A&O X 3, no acute distress, answers questions appropriately - Head Head exam: Present: atraumatic, normocephalic - Eye Eye exam: Present: normal appearance, sclera anicteric - ENT ENT exam: Present: mucous membranes dry - Neck Neck exam general surgery: Present: normal inspection, trachea midline - Respiratory Respiratory exam: Present: CTAB. Absent: rales, rhonchi - Cardiovascular Cardiovascular exam: Present: RRR, +S1, +S2 - GI/Abdominal GI/Abdominal exam: Present: soft, tenderness (epigastric and RUQ), no peritoneal signs. Absent: distended, firm, guarding - Rectal Rectal exam: Present: deferred - Extremities Exam Extremities exam: Present: warm - Neurological Exam Neurological exam: Present: no focal deficits - Psychiatric Psychiatric exam: Present: normal affect, normal mood - Skin Skin exam: Present: dry, intact, normal color, warm Results - Labs CBC & Chem 7: 10/06/17 10:03 10/06/17 01:43 Labs: Last Result Calcium 8.2 mg/dL (8.6-10.3) L 10/06/17 01:43 Troponin I 0.03 ng/mL (< 0.04) 10/06/17 05:50 Triglycerides 274 mg/dL (< 150) H 10/06/17 01:43 Stool Occult Blood Positive (Negative) A 10/06/17 05:57 Entire Visit Hgb 10.9 g/dL (11.5-15.4) L 10/06/17 10:03 Hct 33.3 % (35.3-44.9) L 10/06/17 10:03 PT 11.3 Seconds (9.4-12.1) 10/05/17 15:30 Total Bilirubin 0.8 mg/dL (0.3-1.0) 10/05/17 15:29 AST 14 Units/L (13-39) 10/05/17 15:29 ALT 12 Units/L (7-52) 10/05/17 15:29 Lipase 19 Units/L (11-82) 10/05/17 15:29 - ABG ABG results: PT/INR, D-dimer PT 11.3 Seconds (9.4-12.1) 10/05/17 15:30 - Impressions Impressions Abdomen/Pelvis CT 10/06/17 06:39 IMPRESSION: There appears to be some mild low-attenuation wall thickening to some loops of small bowel to the left upper quadrant involving jejunum and possibly proximal ileum. Findings are concerning for nonspecific infectious or inflammatory enteritis. No evidence for obstruction. Fluid attenuation material present within large bowel which otherwise appears unremarkable. This likely correlates with the clinical history of diarrhea indicated in the history on prior exam 10/05/2017. D/ / 10/06/2017 07:57:59 Sridhar Chaney MD / salima Interpreting Provider: Sridhar Chaney MD Consult Discharge Plan - Plan Referrals: Abraham Toth DO [Primary Care Provider] - <Carson Carlin - Last Filed: 10/06/17 12:33> Date of Encounter: 10/06/17 - Time Spent With Patient Total time spent is greater than 50% in coordination of care (as documented) at patient's floor/unit and/or counseling patient: GI History of Present Illness - Data of Consult Requesting Physician: Shukri Dunbar MD - Consult Narrative History of present illness: Ms. Staton is a 61 year old female - Constitutional Vitals: Temp Pulse Resp BP Pulse Ox 97.6 F 92 18 151/72 92 10/06/17 09:38 10/06/17 09:38 10/06/17 09:38 10/06/17 09:44 10/06/17 09:50 Results - Labs CBC & Chem 7: 10/06/17 10:03 10/06/17 01:43 Labs: Last Result Calcium 8.2 mg/dL (8.6-10.3) L 10/06/17 01:43 Troponin I 0.03 ng/mL (< 0.04) 10/06/17 05:50 Triglycerides 274 mg/dL (< 150) H 10/06/17 01:43 Stool Occult Blood Positive (Negative) A 10/06/17 05:57 Entire Visit Hgb 10.9 g/dL (11.5-15.4) L 10/06/17 10:03 Hct 33.3 % (35.3-44.9) L 10/06/17 10:03 PT 11.3 Seconds (9.4-12.1) 10/05/17 15:30 Total Bilirubin 0.8 mg/dL (0.3-1.0) 05/03/18 15:29 AST 14 Units/L (13-39) 10/05/17 15:29 ALT 12 Units/L (7-52) 10/05/17 15:29 Lipase 19 Units/L (11-82) 10/05/17 15:29 - ABG ABG results: PT/INR, D-dimer PT 11.3 Seconds (9.4-12.1) 10/05/17 15:30 - Impressions Impressions Abdomen/Pelvis CT 10/06/17 06:39 IMPRESSION: There appears to be some mild low-attenuation wall thickening to some loops of small bowel to the left upper quadrant involving jejunum and possibly proximal ileum. Findings are concerning for nonspecific infectious or inflammatory enteritis. No evidence for obstruction. Fluid attenuation material present within large bowel which otherwise appears unremarkable. This likely correlates with the clinical history of diarrhea indicated in the history on prior exam 10/05/2017. D/ / 10/06/2017 07:57:59 Sridhar Chaney MD / salima Interpreting Provider: Sridhar Chaney MD - Attending Attestation Sites is a very pleasant 61-year-old female who presents some with nausea vomiting epigastric pain and was given year was given for baby aspirins yesterday and developed melena this morning. She does have back is getting a lot in the middle and usually occurs whenever she has nausea vomiting or she states the stomach. She underwent a CAT scan of the abdomen and pelvis and a 2- D echo earlier today the CT scan was reviewed by me and there is a question of some thickening in in her proximal jejunum. We will recommend an upper endoscopy today and possibly followed by a push enteroscopy at the same time right after the EGD should the EGD not reveal the source of her bleeding. Have consented her for both the procedures. The patient be typed and crit typed and screened and a stat hemoglobin be done since the hemoglobin is been drifting downward direction since yesterday. Thank you very much for this consultation we will make further recommendations after endoscopy I have personally performed a face to face evaluation on this patient. I have reviewed and agree with the care plan. History and Exam by me shows:
[2017-10-06] MEDS: *HR* OxyCODONE/APAP 5/325 TABLET PO PRN (10:39)
[2017-10-06] MEDS: Diltiazem CD (24hr) 240 MG CAPSULE PO SCH (10:39)
[2017-10-06] MEDS: Gabapentin 400 MG CAPSULE PO SCH ×3 (10:39→21:26)
[2017-10-06] MEDS: Pantoprazole 40 MG in 0.9 % Sodium Chloride Mini Bag 100 ML IVC SCH ×3 (10:40→21:25)
--- NOTE | 2017-10-06 12:25 | Cardiology Consult Note ---
<Unruly Benz - Last Filed: 10/06/17 12:22> Date of Encounter: 10/06/17 Time of Encounter: 12:22 Assessment and Plan (1) Abnormal EKG Current Visit: Yes Status: Acute EKG on admission reviewed. Compared to previous EKG no significant change. Shows NSR with ST changes in the inferolateral leads. Baseline changes noted on EKG completed 03/2017. Mild troponin elevation 0.04, 0.03, 0.03. Denies chest pain. Currently with abdominal pain and found to have bleeding ulcer. Mild troponin due to demand ischemia. Cardiac risk factors include HTN and DM. If TTE shows no concerning changes recommend considering stress test in out-pt setting once GI bleed resolved. TTE pending. Discussion w patient/family: The assessment and plan as outlined above was discussed with the patient and/or family members who expressed understanding and agreement. All questions were answered. Thank you for involving us in the care of your patient. Please call with any questions. History of Present Illness Consult date: 10/06/17 Requesting physician: Gayle Anguiano Consult reason: EKG changes Chief complaint: Abdominal pain History of present illness: Ms. Staton is a 61 year old female with past medical history of HTN and DM who presented with two days of abdominal pain, diarrhea, and nausea. Cardiology consulted for abnormal EKG and elevated troponin. She denies chest pain or prior cardiac history or work-up. She is found to have acute GI bleed, enteritis , and EARL. Past Med Surg Social Fam HX - Past Medical History Medical history: arthritis, COPD, diabetes, GERD, hypertension, other Psychiatric history: anxiety, depression - Past Surgical History Surgical History: breast surgery - Social History Smoking Status: Current every day smoker Smokeless Tobacco Status: No Alcohol use: none Drug use: none - Family History Father Living Status: Hx Family Cancer: Yes (lymphoma) Mother Living Status: Sister Living Status: Hx Family Cancer: Yes (breast cancer) Medications and Allergies Cyclobenzaprine [Flexeril] 10 mg PO TID PRN 10/12/15 [History] Insulin DETEMIR [Levemir] 25 unit SQ BID 03/04/17 [History] Lisinopril [Zestril] 5 mg PO DAILY #30 tablet 03/20/17 [Rx] Diltiazem CD (24hr) [Cardizem CD] 240 mg PO DAILY 09/10/17 [History] Gabapentin [Neurontin] 600 mg PO TID 10/05/17 [History] 3 Allergy/AdvReac Type Severity Reaction Status Date / Time cephalexin [From Keflex] Allergy Difficulty Verified 03/16/17 17:57 Breathing All Systems Review: The remainder of the systems were reviewed and are negative Physical Examination Vital Signs, Last 4 Hours Temp Pulse Resp BP Pulse Ox 10/06/17 09:50 92 10/06/17 09:44 151/72 10/06/17 09:38 97.6 F 92 18 181/75 92 General: Conversant, Other (appearing) HEENT: Atraumatic, Normocephaly, Mucus Membranes Moist Neck: No JVD, Normal carotid pulses Cardiac: Reg Rate and Rhythm, Normal S1 and S2, No Murmur Lungs: Normal Breath Sounds, No Wheeze, Rales, Rhonchi Neuro: Alert and responsive, No focal deficits noted Abdomen: Soft, Other (tender to palpation, gaurding abdomen) Skin: No rashes noted on visualized skin Musculoskeletal: No Chest Wall Tenderness Extremities: No Clubbing, No Cyanosis, No Edema, Normal Pulses Results 10/06/17 10:03 10/06/17 01:43 Lab Results 10/05/17 10/06/17 10/06/17 22:58 01:43 01:43 WBC 18.5 H Hgb 12.2 D Hct 37.1 Plt Count 332 APTT Sodium 140 Potassium 3.6 Chloride 98 Carbon Dioxide 34 H BUN 44 H Creatinine 2.15 H Glucose 151 H Calcium 8.2 L Magnesium 1.5 L Troponin I 0.03 TSH 0.420 10/06/17 10/06/17 10/06/17 01:43 05:50 05:50 WBC 24.6 H Hgb 11.6 Hct 36.4 Plt Count 376 APTT 84.9 H D Sodium Potassium Chloride Carbon Dioxide BUN Creatinine Glucose Calcium Magnesium Troponin I 0.03 TSH 10/06/17 10/06/17 09:18 10:03 WBC Hgb 10.9 L Hct 33.3 L Plt Count APTT 31.0 D Sodium Potassium Chloride Carbon Dioxide BUN Creatinine Glucose Calcium Magnesium Troponin I TSH - Imaging and Cardiology Echo: pending - EKG Interpretation EKG results cardiology: personally reviewed Consult Discharge Plan - Plan Referrals: Abraham Toth, [Primary Care Provider] - <Coni Black - Last Filed: 10/06/17 12:56> Date of Encounter: 10/06/17 - Attending Attestation I examined this patient and my medical decision-making was reviewed with the BOTTLER HELPER. I agree with the documented findings, disposition and treatment plan as described. Ms. Staton presents with abdominal discomfort found to have GIB. Troponin elevation flat and adynamic not jewelry sales representative of ACS. ECG with minimal changes when compared to prior. Patient denies chest pain. Also with acute renal failure. Recommend consideration for outpatient ischemic evaluation once clinical status improves and GIB has resolved. Preferably continue low dose aspirin as long as GI is agreeable. LDL 65 - will hold off on statin. Will sign off. Please call with questions. Thank you for the consult. Assessment and Plan Discussion w patient/family: The assessment and plan as outlined above was discussed with the patient and/or family members who expressed understanding and agreement. All questions were answered. Thank you for involving us in the care of your patient. Please call with any questions. History of Present Illness History of present illness: Ms. Staton is a 61 year old female All Systems Review: The remainder of the systems were reviewed and are negative Physical Examination Vital Signs, Last 4 Hours Temp Pulse Resp BP Pulse Ox 10/06/17 09:50 92 10/06/17 09:44 151/72 10/06/17 09:38 97.6 F 92 18 181/75 92 Results 10/06/17 10:03 10/06/17 01:43 Lab Results 10/05/17 10/06/17 10/06/17 22:58 01:43 01:43 WBC 18.5 H Hgb 12.2 D Hct 37.1 Plt Count 332 APTT Sodium 140 Potassium 3.6 Chloride 98 Carbon Dioxide 34 H BUN 44 H Creatinine 2.15 H Glucose 151 H Calcium 8.2 L Magnesium 1.5 L Troponin I 0.03 TSH 0.420 10/06/17 10/06/17 10/06/17 01:43 05:50 05:50 WBC 24.6 H Hgb 11.6 Hct 36.4 Plt Count 376 APTT 84.9 H D Sodium Potassium Chloride Carbon Dioxide BUN Creatinine Glucose Calcium Magnesium Troponin I 0.03 TSH 10/06/17 10/06/17 09:18 10:03 WBC Hgb 10.9 L Hct 33.3 L Plt Count APTT 31.0 D Sodium Potassium Chloride Carbon Dioxide BUN Creatinine Glucose Calcium Magnesium Troponin I TSH
--- NOTE | 2017-10-06 14:53 | Internal Med Progress Note ---
Date of Encounter: 10/06/17 Time of Encounter: 11:00 - Assessment and plan (1) Acute blood loss anemia Current Visit: Yes Status: Acute Assessment and plan: Hb dropped down to 10.9 from 16.6 cont close monitoring no need of PRBC now Check H/H Q6hr s.p EGD - no active bleeding (2) Duodenal ulcer Current Visit: Yes Status: Acute Assessment and plan: Strict NPO s/p EGD - Epi injected Cont PPI gtt Cont Carafate GI on board (3) GIB (gastrointestinal bleeding) Current Visit: No Status: Acute Qualifiers: GI bleed type/associated pathology: gastric ulcer Qualified Code(s): K25.4 - Chronic or unspecified gastric ulcer with hemorrhage (4) Elevated troponin Current Visit: Yes Status: Acute Assessment and plan: Slightly elevated due to demand ishcemia reviewed 2 D echo - no wall motion abnormalities.. preserved LVEF Card is on board (5) Abnormal EKG Current Visit: Yes Status: Acute Assessment and plan: EKG showed NSR, non specific ST changes in infero lateral leads held ASA due to GI bleed Cont on tele Card did not recommend any further work up (6) EARL (acute kidney injury) Current Visit: Yes Status: Acute Assessment and plan: Likely prerenal due to dehydration cont IV hydration started trending down (7) Intractable nausea and vomiting Current Visit: No Status: Acute Assessment and plan: Improving cont symptomatic and supportive care Qualifiers: Vomiting type: unspecified Qualified Code(s): R11.2 - Nausea with vomiting , unspecified (8) Hypokalemia Current Visit: No Status: Acute Assessment and plan: cont replacing (9) Leukocytosis Current Visit: No Status: Acute Assessment and plan: Mostly due to gastro enteritis as well as reactive afebrile no need of abx cont supportive care trend on WBC Qualifiers: Leukocytosis type: unspecified Qualified Code(s): D72.829 - Elevated white blood cell count, unspecified (10) Diabetes Current Visit: No Status: Chronic Assessment and plan: Cont ISS + change Levemir to 15 BID since pt is NPO Qualifiers: Diabetes mellitus type: type 2 Diabetes mellitus long-term insulin use: with long-term use Diabetes mellitus complication status: without complication Qualified Code(s): E11.9 - Type 2 diabetes mellitus without complications; Z79.4 - termite helper (current) use of insulin; Z79.4 - termite helper ( current) use of insulin; Z79.4 - termite helper (current) use of insulin; Z79.4 - termite helper (current) use of insulin (11) DVT prophylaxis Current Visit: No Status: Acute Assessment and plan: SCD's (12) Hypertension Current Visit: No Status: Chronic Assessment and plan: Resume home anti-hypertensives Qualifiers: Hypertension type: essential hypertension Qualified Code(s): I10 - Essential (primary) hypertension - Time Spent With Patient Total time spent is greater than 50% in coordination of care (as documented) at patient's floor/unit and/or counseling patient: - Subjective Interval history: Ms. Staton is a 61 year old female with history of hypertension, GERD, COPD and diabetes who presents to the emergency department for nausea, vomiting, diarrhea and chest pain. She states over the past 24 hours she has been experiencing some generalized abdominal pain with associated of vomiting and non bloody diarrhea. So many episode of vomiting last couple of days but no hematemesis. She denies any fever or recent illness. Reports chest pain with no radiation during episodes of vomiting. Pt denied any history of cardiac ischemic disease. Recently finished treatment for H. pylori on the . Was hospitalized last month with similar complaints and had an EGD done with findings gastric ulcer that was non-bleeding. EKG in the ER showed some ST depressions in septal and lateral leads. cardiology was contacted and per ED recommended heparin drip. Trops at .04. CT abd/pelvis unremarkable. However early this morning she developed bright red blood per rectum. So heparin gtt stopped and GI consulted for further eval. She just came back from EGD which showed esophageal ulcers, olne big blood clot on the duodenal ulcer noticed. Pt is alert, awake and O x 3. Denied any CP / SOB. her abd pain is little better. Did c/o back pain pain No more BM - Constitutional Vitals: Temp Pulse Resp BP Pulse Ox 98.3 F 64 18 127/69 100 10/06/17 12:20 10/06/17 12:20 10/06/17 12:20 10/06/17 12:20 10/06/17 12:20 General appearance: Present: cooperative, A&O X 3, no acute distress, answers questions appropriately - Head Head exam: Present: atraumatic, normal inspection - Neck Neck exam general surgery: Present: supple - Respiratory Respiratory exam: Present: decreased breath sounds. Absent: rales, respiratory distress, rhonchi, wheezes - Cardiovascular Cardiovascular exam: Present: RRR, +S1, +S2. Absent: tachycardia - GI/Abdominal GI/Abdominal exam: Present: normal bowel sounds, soft, tenderness (mild epigastric discomfort). Absent: rebound, rigid - Extremities Exam Extremities exam: Absent: calf tenderness, pedal edema, tenderness - Back Exam Back exam: Absent: CVA tenderness (L), CVA tenderness (R) - Neurological Exam Neurological exam: Present: alert, oriented X3 - Psychiatric Psychiatric exam: Present: normal affect, normal mood - Skin Skin exam: Absent: rash Internal Medicine: Result - Labs CBC & Chem 7: 10/06/17 10:03 10/06/17 01:43 Labs: Short CBC 10/06/17 10/06/17 10/06/17 Range/Units 01:43 05:50 10:03 WBC 18.5 H 24.6 H (4.3-11.1) K/mcL Hgb 12.2 D 11.6 10.9 L (11.5-15.4) g/dL Hct 37.1 36.4 33.3 L (35.3-44.9) % Plt Count 332 376 (140-400) K/mcL Neutrophils # 14.9 H 19.4 H (1.6-8.9) K/mcL BMP 10/06/17 01:43 Sodium 140 Potassium 3.6 Chloride 98 Carbon Dioxide 34 H BUN 44 H Creatinine 2.15 H Glucose 151 H Calcium 8.2 L Cardiac Enzymes 10/05/17 10/06/17 Range/Units 22:58 05:50 Troponin I 0.03 0.03 (< 0.04) ng/mL - ABG Interpretation ABG results: PT/INR, D-dimer PT 11.3 Seconds (9.4-12.1) 10/05/17 15:30 - Impressions Impressions Abdomen/Pelvis CT 10/06/17 06:39 IMPRESSION: There appears to be some mild low-attenuation wall thickening to some loops of small bowel to the left upper quadrant involving jejunum and possibly proximal ileum. Findings are concerning for nonspecific infectious or inflammatory enteritis. No evidence for obstruction. Fluid attenuation material present within large bowel which otherwise appears unremarkable. This likely correlates with the clinical history of diarrhea indicated in the history on prior exam 10/05/2017. D/ / 10/06/2017 07:57:59 Sridhar Chaney MD / salima Interpreting Provider: Sridhar Chaney MD Consult Discharge Plan - Plan Referrals: Carson Carlin MD [Partnered Physician] - (SENT WEB REQUEST ON 10-06-17 @[id number]) Abraham Toth DO [Primary Care Provider] - 10/13/17 10:30 am
[2017-10-06 16:04] LABS: Hematocrit 29.8 % (35.3-44.9); Hemoglobin 9.7 g/dL (11.5-15.4)
[2017-10-06 21:14] LABS: Hemoglobin 9.3 g/dL (11.5-15.4)
[2017-10-06] MEDS: Insulin DETEMIR 100 UNIT/ML X5UNITS SQ SCH (21:26)
[2017-10-07] MEDS: Pantoprazole 40 MG in 0.9 % Sodium Chloride Mini Bag 100 ML IVC SCH ×5 (02:36→22:38)
[2017-10-07 03:46] LABS: Basophils # 0.1 K/mcL (0.0-0.2); Basophils % 0.8 %; Eosinophils # 0.1 K/mcL (0.0-0.6); Eosinophils % 1.2 %; Hematocrit 29.1 % (35.3-44.9); Immature Granulocytes % 0.5 % (0-4); Lymphocytes # 2.4 K/mcL (0.6-4.6); Lymphocytes % 22.7 %; Mean Corpuscular HGB Conc 30.9 g/dL (31.6-35.5); Mean Corpuscular Hemoglobin 28.8 pg (28.0-33.3); Mean Platelet Volume 10.1 fL (9.4-12.4); Monocytes % 8.9 %; Platelet Count 235 K/mcL (140-400); Red Blood Count 3.13 M/mcL (3.82-4.97); Segmented Neutrophils % 65.9 %
[2017-10-07 03:49] LABS: Monocytes # 0.9 K/mcL (0.0-1.3)
[2017-10-07 04:14] LABS: BUN/Creatinine Ratio 24 (6-26); Blood Urea Nitrogen 22 mg/dL (8-23); Calcium 8.4 mg/dL (8.6-10.3); Carbon Dioxide 30 mEq/L (23-29); Chloride 106 mEq/L (98-107); Glucose 97 mg/dL (70-105); Magnesium 1.6 mg/dL (1.6-2.6); Osmolality,Calculated 295 (280-300); Potassium 3.8 mEq/L (3.5-5.1); Sodium 141 mEq/L (136-145); eGFR For African Americans > 60 (> 60); eGFR For Non-African Americans > 60 (> 60)
[2017-10-07] MEDS: 0.9 % Sodium Chloride 1,000 ML IVC SCH (05:41)
[2017-10-07] MEDS: *HR* OxyCODONE/APAP 5/325 TABLET PO PRN (06:32)
[2017-10-07] MEDS: Gabapentin 400 MG CAPSULE PO SCH ×3 (08:20→21:05)
[2017-10-07] MEDS: Diltiazem CD (24hr) 240 MG CAPSULE PO SCH (08:20)
[2017-10-07] MEDS: Insulin LISPRO 300 UNITS/3 ML VIAL SQ SCH ×4 (08:23→21:06)
[2017-10-07] MEDS: Insulin DETEMIR 100 UNIT/ML X5UNITS SQ SCH ×2 (09:54→21:05)
--- NOTE | 2017-10-07 13:48 | Internal Med Progress Note ---
Date of Encounter: 10/07/17 Time of Encounter: 07:40 - Assessment and plan (1) Acute blood loss anemia Current Visit: Yes Status: Acute Assessment and plan: Hb dropped down to 9.0 from 16.6 and stable @ 9.0 for now cont close monitoring no need of PRBC now Check H/H Q8hr x 1 day s/p EGD - no active bleeding (2) Duodenal ulcer Current Visit: Yes Status: Acute Assessment and plan: started on clear liquid diet today..wll advance the diet as she tolerates s/p EGD - Epi injected Cont PPI gtt Cont Carafate GI on board (3) GIB (gastrointestinal bleeding) Current Visit: No Status: Acute Qualifiers: GI bleed type/associated pathology: gastric ulcer Qualified Code(s): K25.4 - Chronic or unspecified gastric ulcer with hemorrhage (4) Elevated troponin Current Visit: Yes Status: Acute Assessment and plan: Slightly elevated due to demand ishcemia reviewed 2 D echo - no wall motion abnormalities.. preserved LVEF Card is on board (5) Abnormal EKG Current Visit: Yes Status: Acute Assessment and plan: EKG showed NSR, non specific ST changes in infero lateral leads held ASA due to GI bleed Cont on tele Card did not recommend any further work up (6) EARL (acute kidney injury) Current Visit: Yes Status: Acute Assessment and plan: Likely prerenal due to dehydration resolved d/c IVF (7) Intractable nausea and vomiting Current Visit: No Status: Acute Assessment and plan: Improving cont symptomatic and supportive care Qualifiers: Vomiting type: unspecified Qualified Code(s): R11.2 - Nausea with vomiting , unspecified (8) Hypokalemia Current Visit: No Status: Acute Assessment and plan: improved (9) Leukocytosis Current Visit: No Status: Acute Assessment and plan: Mostly due to gastro enteritis as well as reactive afebrile no need of abx cont supportive care trended down to normal Qualifiers: Leukocytosis type: unspecified Qualified Code(s): D72.829 - Elevated white blood cell count, unspecified (10) Diabetes Current Visit: No Status: Chronic Assessment and plan: Cont ISS + change Levemir to 15 BID since pt is NPO Qualifiers: Diabetes mellitus type: type 2 Diabetes mellitus termite helper insulin use: with halfway use Diabetes mellitus complication status: without complication Qualified Code(s): E11.9 - Type 2 diabetes mellitus without complications; Z79.4 - retirement (current) use of insulin; Z79.4 - retirement ( current) use of insulin; Z79.4 - retirement (current) use of insulin; 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 Staton is a 61 year old female with history of hypertension, GERD, COPD and diabetes who presents to the emergency department for nausea, vomiting, diarrhea and chest pain. She states over the past 24 hours she has been experiencing some generalized abdominal pain with associated of vomiting and non bloody diarrhea. So many episode of vomiting last couple of days but no hematemesis. She denies any fever or recent illness. Reports chest pain with no radiation during episodes of vomiting. Pt denied any history of cardiac ischemic disease. Recently finished treatment for H. pylori on the . Was hospitalized last month with similar complaints and had an EGD done with findings gastric ulcer that was non-bleeding. EKG in the ER showed some ST depressions in septal and lateral leads. cardiology was contacted and per ED recommended heparin drip. Trops at .04. CT abd/pelvis unremarkable. However early this morning she developed bright red blood per rectum. So heparin gtt stopped and GI consulted for further eval. She had EGD on 10/06/17 which showed esophageal ulcers, one big blood clot on the base of duodenal ulcer noticed. Pt is alert, awake and O x 3. Denied any CP / SOB. Her abd pain also better today. No BM since y/d - Constitutional Vitals: Temp Pulse Resp BP Pulse Ox 97.9 F 52 14 112/66 100 10/07/17 11:37 10/07/17 11:37 10/07/17 11:37 10/07/17 11:37 10/07/17 11:37 General appearance: Present: cooperative, A&O X 3, no acute distress, answers questions appropriately - Neck Neck exam general surgery: Present: supple - Respiratory Respiratory exam: Present: decreased breath sounds. Absent: rales, respiratory distress, rhonchi, wheezes - Cardiovascular Cardiovascular exam: Present: RRR, +S1, +S2. Absent: tachycardia - GI/Abdominal GI/Abdominal exam: Present: normal bowel sounds, soft. Absent: rebound, rigid, tenderness - Extremities Exam Extremities exam: Absent: calf tenderness, pedal edema, tenderness - Back Exam Back exam: Absent: CVA tenderness (L), CVA tenderness (R) - Neurological Exam Neurological exam: Present: alert, oriented X3 - Psychiatric Psychiatric exam: Present: normal affect, normal mood Internal Medicine: Result - Labs CBC & Chem 7: 10/07/17 03:18 10/07/17 03:18 Labs: Short CBC 10/06/17 10/06/17 10/07/17 Range/Units 15:42 21:00 03:18 WBC 10.6 D (4.3-11.1) K/mcL Hgb 9.7 L 9.3 L 9.0 L (11.5-15.4) g/dL Hct 29.8 L 29.0 L 29.1 L (35.3-44.9) % Plt Count 235 (140-400) K/mcL Neutrophils # 7.0 (1.6-8.9) K/mcL BMP 10/07/17 03:18 Sodium 141 Potassium 3.8 Chloride 106 Carbon Dioxide 30 H BUN 22 Creatinine 0.92 Glucose 97 Calcium 8.4 L - ABG Interpretation ABG results: PT/INR, D-dimer PT 11.3 Seconds (9.4-12.1) 10/05/17 15:30 Consult Discharge Plan - Plan Referrals: Carson Carlin MD [Partnered Physician] - (SENT WEB REQUEST ON 10-06-17 @[id number]) Abraham Toth DO [Primary Care Provider] - 10/13/17 10:30 am
[2017-10-07 16:12] LABS: Hematocrit 27.9 % (35.3-44.9); Hemoglobin 8.6 g/dL (11.5-15.4)
[2017-10-08] MEDS: Pantoprazole 40 MG in 0.9 % Sodium Chloride Mini Bag 100 ML IVC SCH (03:48)
[2017-10-08 05:00] LABS: Basophils # 0.1 K/mcL (0.0-0.2); Eosinophils # 0.2 K/mcL (0.0-0.6); Eosinophils % 2.4 %; Hematocrit 28.9 % (35.3-44.9); Hemoglobin 9.1 g/dL (11.5-15.4); Immature Granulocytes % 0.5 % (0-4); Lymphocytes # 2.4 K/mcL (0.6-4.6); Lymphocytes % 28.8 %; Mean Corpuscular HGB Conc 31.5 g/dL (31.6-35.5); Mean Platelet Volume 10.1 fL (9.4-12.4); Monocytes # 0.7 K/mcL (0.0-1.3); Monocytes % 7.9 %; Neutrophils # 4.9 K/mcL (1.6-8.9); Platelet Count 213 K/mcL (140-400); Red Blood Count 3.14 M/mcL (3.82-4.97); Red Cell Distribution Width 13.6 % (11.5-14.5); Segmented Neutrophils % 59.4 %
[2017-10-08 05:14] LABS: BUN/Creatinine Ratio 15 (6-26); Blood Urea Nitrogen 12 mg/dL (8-23); Calcium 8.8 mg/dL (8.6-10.3); Carbon Dioxide 31 mEq/L (23-29); Chloride 104 mEq/L (98-107); Glucose 82 mg/dL (70-105); Osmolality,Calculated 287 (280-300); Potassium 3.7 mEq/L (3.5-5.1); Sodium 139 mEq/L (136-145); eGFR For African Americans > 60 (> 60); eGFR For Non-African Americans > 60 (> 60)
[2017-10-08] MEDS: Insulin LISPRO 300 UNITS/3 ML VIAL SQ SCH ×4 (08:10→21:10)
[2017-10-08] MEDS: Insulin DETEMIR 100 UNIT/ML X5UNITS SQ SCH ×2 (08:10→21:10)
[2017-10-08] MEDS: Gabapentin 400 MG CAPSULE PO SCH ×3 (08:16→21:10)
--- NOTE | 2017-10-08 09:19 | Internal Med Progress Note ---
Date of Encounter: 10/08/17 Time of Encounter: 09:13 - Assessment and plan (1) Acute blood loss anemia Current Visit: Yes Status: Acute Assessment and plan: Hb dropped down to 9.0 from 16.6 and stable @ 9.1 for now cont close monitoring no need of PRBC now s/p EGD - no active bleeding (2) Duodenal ulcer Current Visit: Yes Status: Acute Assessment and plan: advance to soft diet today s/p EGD - Epi injected switched to PO PPI Cont Carafate GI on board (3) GIB (gastrointestinal bleeding) Current Visit: No Status: Acute Qualifiers: GI bleed type/associated pathology: gastric ulcer Qualified Code(s): K25.4 - Chronic or unspecified gastric ulcer with hemorrhage (4) Elevated troponin Current Visit: Yes Status: Acute Assessment and plan: Slightly elevated due to demand ishcemia reviewed 2 D echo - no wall motion abnormalities.. preserved LVEF Card is on board stable.. No events in last 2 days (5) Abnormal EKG Current Visit: Yes Status: Acute Assessment and plan: EKG showed NSR, non specific ST changes in infero lateral leads held ASA due to GI bleed Cont on tele Card did not recommend any further work up (6) EARL (acute kidney injury) Current Visit: Yes Status: Acute Assessment and plan: Likely prerenal due to dehydration resolved d/c IVF (7) Intractable nausea and vomiting Current Visit: No Status: Acute Assessment and plan: Improving cont symptomatic and supportive care Qualifiers: Vomiting type: unspecified Qualified Code(s): R11.2 - Nausea with vomiting , unspecified (8) Hypokalemia Current Visit: No Status: Acute Assessment and plan: improved (9) Leukocytosis Current Visit: No Status: Acute Assessment and plan: Mostly due to gastro enteritis as well as reactive afebrile no need of abx cont supportive care trended down to normal Qualifiers: Leukocytosis type: unspecified Qualified Code(s): D72.829 - Elevated white blood cell count, unspecified (10) Diabetes Current Visit: No Status: Chronic Assessment and plan: Cont ISS + change Levemir to 15 BID since pt is NPO Qualifiers: Diabetes mellitus type: type 2 Diabetes mellitus [facility] insulin use: with [facility] use Diabetes mellitus complication status: without complication Qualified Code(s): E11.9 - Type 2 diabetes mellitus without complications; Z79.4 - shelter (current) use of insulin; Z79.4 - shelter ( current) use of insulin; 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; Z79.4 - shelter (current) use of insulin (11) DVT prophylaxis Current Visit: No Status: Acute Assessment and plan: SCD's (12) Hypertension Current Visit: No Status: Chronic Assessment and plan: Resume home anti-hypertensives Qualifiers: Hypertension type: essential hypertension Qualified Code(s): I10 - Essential (primary) hypertension (13) Bradycardia Current Visit: Yes Status: Acute Assessment and plan: HR in low 50's d/c Cardizem cont tele - Time Spent With Patient Total time spent is greater than 50% in coordination of care (as documented) at patient's floor/unit and/or counseling patient: - Subjective Interval history: Ms. Staton is a 61 year old female with history of hypertension, GERD, COPD and diabetes who presents to the emergency department for nausea, vomiting, diarrhea and chest pain. She states over the past 24 hours she has been experiencing some generalized abdominal pain with associated of vomiting and non bloody diarrhea. So many episode of vomiting last couple of days but no hematemesis. She denies any fever or recent illness. Reports chest pain with no radiation during episodes of vomiting. Pt denied any history of cardiac ischemic disease. Recently finished treatment for H. pylori on the . Was hospitalized last month with similar complaints and had an EGD done with findings gastric ulcer that was non-bleeding. EKG in the ER showed some ST depressions in septal and lateral leads. cardiology was contacted and per ED recommended heparin drip. Trops at .04. CT abd/pelvis unremarkable. However early this morning she developed bright red blood per rectum. So heparin gtt stopped and GI consulted for further eval. She had EGD on 10/06/17 which showed esophageal ulcers, one big blood clot on the base of duodenal ulcer noticed. Pt is alert, awake and O x 3. Denied any CP / SOB. No Abd pain. Tolerating PO intake well. No BM yet. - Constitutional Vitals: Temp Pulse Resp BP Pulse Ox 97.8 F 58 16 134/52 100 10/08/17 07:25 10/08/17 07:25 10/08/17 07:25 10/08/17 07:25 10/08/17 08:24 General appearance: Present: cooperative, A&O X 3, no acute distress, answers questions appropriately - Head Head exam: Present: atraumatic, normal inspection - Respiratory Respiratory exam: Present: decreased breath sounds. Absent: rales, respiratory distress, rhonchi, wheezes - Cardiovascular Cardiovascular exam: Present: RRR, +S1, +S2. Absent: tachycardia - GI/Abdominal GI/Abdominal exam: Present: normal bowel sounds, soft. Absent: rebound, rigid, tenderness - Extremities Exam Extremities exam: Absent: calf tenderness, pedal edema, tenderness - Back Exam Back exam: Absent: CVA tenderness (L), CVA tenderness (R) - Neurological Exam Neurological exam: Present: alert, oriented X3 - Psychiatric Psychiatric exam: Present: normal affect, normal mood Internal Medicine: Result - Labs CBC & Chem 7: 10/08/17 04:30 10/08/17 04:30 Labs: Short CBC 10/07/17 10/08/17 Range/Units 15:57 04:30 WBC 8.2 (4.3-11.1) K/mcL Hgb 8.6 L 9.1 L (11.5-15.4) g/dL Hct 27.9 L 28.9 L (35.3-44.9) % Plt Count 213 (140-400) K/mcL Neutrophils # 4.9 (1.6-8.9) K/mcL BMP 10/08/17 04:30 Sodium 139 Potassium 3.7 Chloride 104 Carbon Dioxide 31 H BUN 12 Creatinine 0.79 Glucose 82 Calcium 8.8 - ABG Interpretation ABG results: PT/INR, D-dimer PT 11.3 Seconds (9.4-12.1) 10/05/17 15:30 Consult Discharge Plan - Plan Referrals: Carson Carlin MD [Partnered Physician] - (SENT WEB REQUEST ON 10-06-17 @[id number]) Abraham Toth DO [Primary Care Provider] - 10/13/17 10:30 am
[2017-10-08] MEDS: Ondansetron 4 MG/2 ML VIAL IVP PRN (17:51)
[2017-10-09 05:54] LABS: Basophils # 0.1 K/mcL (0.0-0.2); Basophils % 1.1 %; Eosinophils # 0.2 K/mcL (0.0-0.6); Eosinophils % 3.4 %; Hematocrit 29.1 % (35.3-44.9); Hemoglobin 9.6 g/dL (11.5-15.4); Immature Granulocytes % 0.6 % (0-4); Lymphocytes # 1.6 K/mcL (0.6-4.6); Lymphocytes % 25.4 %; Mean Corpuscular Hemoglobin 28.7 pg (28.0-33.3); Mean Corpuscular Volume 87.1 fL (83.0-100.0); Mean Platelet Volume 10.3 fL (9.4-12.4); Monocytes # 0.5 K/mcL (0.0-1.3); Monocytes % 7.8 %; Neutrophils # 3.9 K/mcL (1.6-8.9); Platelet Count 234 K/mcL (140-400); Red Blood Count 3.34 M/mcL (3.82-4.97); Red Cell Distribution Width 13.2 % (11.5-14.5); Segmented Neutrophils % 61.7 %
[2017-10-09] MEDS: Acetaminophen 325 MG TABLET PO PRN (06:25)
[2017-10-09 07:10] VITALS: BP 108/58
[2017-10-09] MEDS: Gabapentin 400 MG CAPSULE PO SCH (08:14)
[2017-10-09] MEDS: Insulin LISPRO 300 UNITS/3 ML VIAL SQ SCH (08:15)
[2017-10-09] MEDS: Insulin DETEMIR 100 UNIT/ML X5UNITS SQ SCH (08:15)
--- NOTE | 2017-10-09 09:20 | Discharge Summary ---
- NOTES TO OUTPATIENT PROVIDER Notes to Outpatient Provider: f/u with GI Dr. Carlin in 1-2 weeks for possible f/ u EGD. Cont taking Prilosec and Carafate at least for 1 month. Stop taking Cardizem since your heart rate running low in 50's Date of Encounter: 10/09/17 Time of Encounter: 09:08 - Discharge Diagnosis (1) Acute blood loss anemia Priority: Primary Status: Acute (2) Duodenal ulcer Priority: Primary Status: Acute (3) GIB (gastrointestinal bleeding) Priority: Primary Status: Acute Qualifiers: GI bleed type/associated pathology: gastric ulcer Qualified Code(s): K25.4 - Chronic or unspecified gastric ulcer with hemorrhage (4) Elevated troponin Priority: Secondary Status: Acute (5) Abnormal EKG Priority: Secondary Status: Acute (6) EARL (acute kidney injury) Priority: Secondary Status: Acute (7) Intractable nausea and vomiting Priority: Secondary Status: Acute Qualifiers: Vomiting type: unspecified Qualified Code(s): R11.2 - Nausea with vomiting , unspecified (8) Hypokalemia Priority: Secondary Status: Acute (9) Leukocytosis Priority: Secondary Status: Acute Qualifiers: Leukocytosis type: unspecified Qualified Code(s): D72.829 - Elevated white blood cell count, unspecified (10) Diabetes Priority: Secondary Status: Chronic Qualifiers: Diabetes mellitus type: type 2 Diabetes mellitus intermediate frame tender insulin use: with intermediate frame tender use Diabetes mellitus complication status: without complication Qualified Code(s): E11.9 - Type 2 diabetes mellitus without complications; Z79.4 - nursing home (current) use of insulin; Z79.4 - nursing home ( current) use of insulin; 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 Staton is a 61 year old female with history of hypertension, GERD, COPD and diabetes who presents to the emergency department for nausea, vomiting, diarrhea and chest pain. She states over the past 24 hours she has been experiencing some generalized abdominal pain with associated of vomiting and non bloody diarrhea. So many episode of vomiting last couple of days but no hematemesis. She denies any fever or recent illness. Reports chest pain with no radiation during episodes of vomiting. Pt denied any history of cardiac ischemic disease. Recently finished treatment for H. pylori on the . Was hospitalized last month with similar complaints and had an EGD done with findings gastric ulcer that was non-bleeding. EKG in the ER showed some ST depressions in septal and lateral leads. cardiology was contacted and per ED recommended heparin drip. Trops at .04. CT abd/pelvis unremarkable. However later that morning she developed bright red blood per rectum. So heparin gtt stopped and GI consulted for further eval. GI did EGD on 10/06/17 which showed esophageal ulcers, olne big blood clot on the duodenal ulcer noticed. Pt was started on protonix gtt and carafate. Her abdominal pain resolved, she is tolerating pO intake well. Recommend to continue PO Carafate and Prilosec. Also recommend to f/u with GI as an out pt in one week for possible EGD. regarding her elevated troponin and non specific EKG changes pt was evaluated by Card. Her 2 D Echo did not show any acute changes, no septal and wall motion abnormalities so at this point card did not recommend any further work up. Her HR in mid 50's so i stopped her Cardizem here. Will d/c her home in stable condition today. - Time Spent with Patient Total time spent providing and/or coordinating discharge services: - Discharge Medications Prescriptions: Omeprazole [PriLOSEC] 20 mg PO BIDAC #60 capsule. Sucralfate [Carafate] 1 gm PO QIDAC #120 tablet Home Medications: Cyclobenzaprine [Flexeril] 10 mg PO TID PRN 10/12/15 [History] Insulin DETEMIR [Levemir] 25 unit SQ BID 03/04/17 [History] Lisinopril [Zestril] 5 mg PO DAILY #30 tablet 03/20/17 [Rx] Gabapentin [Neurontin] 600 mg PO TID 10/05/17 [History] Omeprazole [PriLOSEC] 20 mg PO BIDAC #60 capsule. 10/09/17 [Rx] Sucralfate [Carafate] 1 gm PO QIDAC #120 tablet 10/09/17 [Rx] Allergies/Adverse Reactions: 3 Allergy/AdvReac Type Severity Reaction Status Date / Time cephalexin [From Keflex] Allergy Difficulty Verified 03/16/17 17:57 Breathing Date of admission: 10/05/17 22:02 Primary care physician: Abraham Toth, Consults: 10/06/17 05:49 Consult to Gastroenterology [CONS] Routine Consulting Provider: Gastroenterology Marifer Reason for Consult: GI bleed Call Completed: No - Constitutional Vitals: Temp Pulse Resp BP Pulse Ox 98.0 F 52 18 108/58 92 10/09/17 07:06 10/09/17 07:06 10/09/17 07:06 10/09/17 07:06 10/09/17 07:06 General appearance: Present: cooperative, A&O X 3, no acute distress, answers questions appropriately - Head Head exam: Present: atraumatic, normal inspection - Neck Neck exam general surgery: Present: supple - Respiratory Respiratory exam: Present: decreased breath sounds. Absent: rales, respiratory distress, rhonchi, wheezes - Cardiovascular Cardiovascular exam: Present: RRR, +S1, +S2. Absent: tachycardia - GI/Abdominal GI/Abdominal exam: Present: normal bowel sounds, soft. Absent: rebound, rigid, tenderness - Extremities Exam Extremities exam: Absent: calf tenderness, pedal edema, tenderness - Neurological Exam Neurological exam: Present: alert, oriented X3 - Patient Status Disposition: Home, Self-Care Condition: Good Overall status at discharge: patient is back to baseline - Discharge Instructions Follow Up With: Carson Carlin MD [Partnered Physician] - (SENT WEB REQUEST ON 10-06-17 @[id number]) Abraham Toth DO [Primary Care Provider] - 10/13/17 10:30 am - Diet and Activity Activity: increase activity as tolerated Diet: low salt diet
[2017-10-09] MEDS ORDERED: Gabapentin 300 MG CAPSULE PO SCH (15:00)
== END 2017-10-09 10:48 | disposition home or self-care (01) | DRG 378 ==
LOC: 2ANU 14:25 → EMEROO 14:25 → 2ANU 21:36 → SUATTDRO 22:02 → 2NNU 10-06 12:17 → 2ANU 10-08 11:08
PROVIDERS: ADMIT Internal Medicine; ATTEND Family Medicine

== ENCOUNTER 2017-10-27 11:09 | Inpatient (IN) ==
[2017-10-27] MEDS ORDERED: Ondansetron 4 MG/2 ML VIAL IVP ONE (11:14)
--- NOTE | 2017-10-27 11:18 | Emergency Department Note ---
Disposition Clinical Impression: Nausea vomiting and diarrhea, Acute kidney injury Disposition: Admitted As Inpatient Condition: Fair Referrals: Abraham Toth DO [Primary Care Provider] - Forms: ED Satisfaction Letter, Work/School Release Time of Disposition: 14:10 Abdominal Pain HPI - General Chief Complaint: ED Abdominal Pain Stated Complaint: vomiting,diarrhea Time Seen by Provider: 10/27/17 11:14 Source: patient Mode of arrival: ambulatory Limitations: no limitations Nursing Notes Reviewed: Yes Vital Signs Reviewed: Yes - History of Present Illness HPI Narrative: 62-year-old who presents with nausea vomiting and diarrhea since yesterday. She complains of epigastric discomfort. States she does have a history of ulcers and does this quite frequently. Patient was hospitalized at the beginning of the month and had an EGD that showed esophageal ulcer, nonbleeding erosive gastropathy, duodenal ulcer with an adherent clot. 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 Consistency: constant Location: epigastric Pain Severity: severe Pain Scale: 10 Quality: cramping, aching Radiation: none Migration to: no migration Improves with: nothing Worsens with: nothing Context: other Associated symptoms: Reports: nausea, vomiting, diarrhea - Related Data Home Medications Medication Instructions Recorded Confirmed Cyclobenzaprine [Flexeril] 10 mg PO TID PRN 10/12/15 10/05/17 Insulin DETEMIR [Levemir] 25 unit SQ BID 03/04/17 10/05/17 Gabapentin [Neurontin] 600 mg PO TID 10/05/17 10/05/17 Previous Rx's Medication Instructions Recorded Lisinopril [Zestril] 5 mg PO DAILY #30 tablet 03/20/17 Omeprazole [PriLOSEC] 20 mg PO BIDAC #60 capsule. 10/09/17 Sucralfate [Carafate] 1 gm PO QIDAC #120 tablet 10/09/17 Allergies Allergy/AdvReac Type Severity Reaction Status Date / Time cephalexin [From Keflex] Allergy Difficulty Verified 03/16/17 17:57 Breathing All systems ED: reviewed and negative except as stated. Constitutional: Denies: fever, chills, weakness, weight change Eyes: Denies: eye pain, eye discharge, vision change ENT ED: Denies: ear pain, throat pain, dental pain, hearing loss, epistaxis, congestion, dysphagia Cardiovascular: Denies: chest pain, palpitations, dyspnea on exertion, edema, syncope Respiratory: Denies: cough, dyspnea, wheezes, hemoptysis, stridor Gastrointestinal: Reports: abdominal pain, nausea, vomiting, diarrhea. Denies: constipation, hematemesis, melena, hematochezia Genitourinary: Denies: dysuria, frequency, hematuria, discharge Musculoskeletal: Denies: back pain, neck pain, arthralgia, myalgia Integumentary: Denies: rash, abrasion, lesions Neurological: Denies: headache, weakness, numbness, paresthesias, confusion, abnormal gait, vertigo Psychiatric: Denies: anxiety, depression, suicidal thoughts, homicidal thoughts , auditory hallucinations, visual hallucinations Endocrine: Denies: fatigue Hematological/Lymphatic: Denies: easy bleeding, easy bruising Allergic/Immunologic: Denies: facial swelling, urticaria Abdominal Pain PMH - Past Medical History Medical history: Reports: arthritis, COPD, diabetes, GERD, hypertension, other Female Surgical History: Reports: 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 Psychiatric history: Reports: anxiety, depression - Social History Smoking status: Current every day smoker Alcohol use: Reports: none Drug use: Reports: none Physical Exam - General Limitations: no limitations General appearance: alert, in no apparent distress - Head Head exam: atraumatic, normocephalic, normal inspection - Eye Eye exam: Present: normal appearance, PERRL, EOMI - ENT ENT exam: normal exam, normal oropharynx, mucous membranes moist - Neck Neck exam: Present: normal inspection, full ROM, trachea midline - Chest Chest inspection: Present: normal inspection, symmetric chest wall rise - Respiratory Respiratory exam: Present: normal lung sounds bilaterally - Cardiovascular Cardiovascular exam: Present: regular rate, normal rhythm, normal heart sounds - Abdominal Exam Abdominal exam: Present: soft, tenderness. Absent: guarding, rebound Abdominal tenderness: Present: epigastrium - Extremities Exam Extremities exam: Present: normal inspection, full ROM. Absent: tenderness, pedal edema - Expanded Lower Extremity Exam Neurovascular/Tendon exam: Absent: motor deficit, sensory deficit, tendon deficit Gait: observed and normal - Back Exam Back exam: Present: normal inspection, full ROM. Absent: tenderness - Neurological Exam Neurological exam: Present: alert, oriented X3 - Psychiatric Psychiatric exam: Present: normal affect, normal mood - Skin Skin exam: Present: warm, dry, intact, normal color Course - Reevaluation(s) Reevaluation #1: 62-year-old with nausea vomiting diarrhea. Labs show acute kidney injury with dehydration. Patient will be admitted. Does have a elevated white count and elevated lactate but no focus of infection is found other than the diarrhea. Time: 14:09 - Consultations Consultation #1: Discussed with Dr. Ty, admit. Time: 14:09 Vital Signs Temperature 98.1 F 10/27/17 11:10 Pulse Rate 115 10/27/17 11:10 Respiratory Rate 22 10/27/17 11:10 Blood Pressure 119/74 10/27/17 11:10 O2 Sat by Pulse Oximetry 96 10/27/17 11:10 Temperature 98.1 F 10/27/17 11:13 Pulse Rate 88 10/27/17 12:00 Respiratory Rate 18 10/27/17 12:00 Blood Pressure 135/68 10/27/17 12:00 O2 Sat by Pulse Oximetry 93 10/27/17 12:00 Oxygen Delivery Oxygen Delivery Room Air Abdominal Pain - Lab Data Lab results reviewed: Yes I reviewed the patient's lab results. Result diagrams: 10/27/17 11:14 10/27/17 11:14 Lab Results 10/27/17 10/27/17 10/27/17 Range/Units 11:14 11:14 11:29 WBC 23.2 H (4.3-11.1) K/mcL RBC 5.45 H (3.82-4.97) M/mcL Hgb 15.8 H (11.5-15.4) g/dL Hct 44.8 (35.3-44.9) % MCV 82.2 L (83.0-100.0) fL MCH 29.0 (28.0-33.3) pg MCHC 35.3 (31.6-35.5) g/dL RDW 13.2 (11.5-14.5) % Plt Count 575 H (140-400) K/mcL MPV 10.3 (9.4-12.4) fL Immature Gran % 0.8 (0-4) % Seg Neutrophils % 84.9 % Lymphocytes % 6.4 % Monocytes % 7.4 % Eosinophils % 0.1 % Basophils % 0.4 % Neutrophils # 19.7 H (1.6-8.9) K/mcL Lymphocytes # 1.5 (0.6-4.6) K/mcL Monocytes # 1.7 H (0.0-1.3) K/mcL Eosinophils # 0.0 (0.0-0.6) K/mcL Basophils # 0.1 (0.0-0.2) K/mcL Sodium 139 (136-145) mEq/L Potassium 3.7 (3.5-5.1) mEq/L Chloride 89 L (98-107) mEq/L Carbon Dioxide 31 H (23-29) mEq/L BUN 29 H (8-23) mg/dL Creatinine 2.02 H (0.60-1.20) mg/dL Est GFR ( Amer) 30 L (> 60) Est GFR (Non-Af Amer) 25 L (> 60) BUN/Creatinine Ratio 14 (6-26) Glucose 232 H (70-105) mg/dL Calculated Osmolality 301 H (280-300) Lactic Acid 3.4 H (0.5-2.2) mmol/L Calcium 10.8 H (8.6-10.3) mg/dL Total Bilirubin 0.6 (0.3-1.0) mg/dL Direct Bilirubin 0.1 (0.0-0.2) mg/dL Indirect Bilirubin 0.5 (0.0-1.2) mg/dL AST 17 (13-39) Units/L ALT 18 (7-52) Units/L Alkaline Phosphatase 90 (34-104) Units/L Troponin I < 0.03 (< 0.04) ng/mL Serum Total Protein 9.1 H (6.4-8.9) g/dL Albumin 5.8 H (3.5-5.7) g/dL Globulin 3.3 (2.4-3.5) g/dL Albumin/Globulin Ratio 1.8 (1.1-2.2) Amylase 46 (29-103) Units/L Lipase 21 (11-82) Units/L Urine Color (Yellow) Urine Clarity (Clear) Urine pH (5.0-8.0) pH Units Ur Specific Call (1.010-1.025) Urine Protein (Neg-Trace) mg/dL Urine Glucose (UA) (Normal) mg/dL Urine Ketones (Negative) mg/dL Urine Blood (Negative) Urine Nitrite (Negative) Urine Bilirubin (Negative) Urine Urobilinogen (Normal) mg/dL Ur Leukocyte Esterase (Negative) Urine Microscopic RBC (0-3) per hpf Urine Microscopic WBC (0-3) per hpf Ur Squamous Epith Cells (None-Few) per lpf Urine Bacteria (None-Few) per hpf Hyaline Casts (None-Few) per lpf Ur Culture Indicated? (NO) 10/27/17 Range/Units 13:04 WBC (4.3-11.1) K/mcL RBC (3.82-4.97) M/mcL Hgb (11.5-15.4) g/dL Hct (35.3-44.9) % MCV (83.0-100.0) fL MCH (28.0-33.3) pg MCHC (31.6-35.5) g/dL RDW (11.5-14.5) % Plt Count (140-400) K/mcL MPV (9.4-12.4) fL Immature Gran % (0-4) % Seg Neutrophils % % Lymphocytes % % Monocytes % % Eosinophils % % Basophils % % Neutrophils # (1.6-8.9) K/mcL Lymphocytes # (0.6-4.6) K/mcL Monocytes # (0.0-1.3) K/mcL Eosinophils # (0.0-0.6) K/mcL Basophils # (0.0-0.2) K/mcL Sodium (136-145) mEq/L Potassium (3.5-5.1) mEq/L Chloride (98-107) mEq/L Carbon Dioxide (23-29) mEq/L BUN (8-23) mg/dL Creatinine (0.60-1.20) mg/dL Est GFR ( Amer) (> 60) Est GFR (Non-Af Amer) (> 60) BUN/Creatinine Ratio (6-26) Glucose (70-105) mg/dL Calculated Osmolality (280-300) Lactic Acid (0.5-2.2) mmol/L Calcium (8.6-10.3) mg/dL Total Bilirubin (0.3-1.0) mg/dL Direct Bilirubin (0.0-0.2) mg/dL Indirect Bilirubin (0.0-1.2) mg/dL AST (13-39) Units/L ALT (7-52) Units/L Alkaline Phosphatase (34-104) Units/L Troponin I (< 0.04) ng/mL Serum Total Protein (6.4-8.9) g/dL Albumin (3.5-5.7) g/dL Globulin (2.4-3.5) g/dL Albumin/Globulin Ratio (1.1-2.2) Amylase (29-103) Units/L Lipase (11-82) Units/L Urine Color Dark Yellow (Yellow) Urine Clarity Cloudy A (Clear) Urine pH 5.0 (5.0-8.0) pH Units Ur Specific Call 1.029 H (1.010-1.025) Urine Protein 30 H (Neg-Trace) mg/dL Urine Glucose (UA) 100 H (Normal) mg/dL Urine Ketones Trace H (Negative) mg/dL Urine Blood Negative (Negative) Urine Nitrite Negative (Negative) Urine Bilirubin Moderate H (Negative) Urine Urobilinogen Normal (Normal) mg/dL Ur Leukocyte Esterase Negative (Negative) Urine Microscopic RBC 0-3 (0-3) per hpf Urine Microscopic WBC 5-15 H (0-3) per hpf Ur Squamous Epith Cells Many H (None-Few) per lpf Urine Bacteria None Seen (None-Few) per hpf Hyaline Casts Few (None-Few) per lpf Ur Culture Indicated? NO (NO) - Radiology Data Radiology results reviewed: Yes I reviewed the patient's radiology results. - EKG Data EKG attestation: Yes I reviewed and interpreted this EKG. EKG shows normal: sinus rhythm Rate: normal Rhythm: NSR [place]/QRS: normal ST segment depression in: v4, v5
[2017-10-27] MEDS ORDERED: Pantoprazole 40 MG VIAL IVP ONE (11:26)
[2017-10-27 11:54] LABS: Basophils # 0.1 K/mcL (0.0-0.2); Basophils % 0.4 %; Eosinophils % 0.1 %; Hematocrit 44.8 % (35.3-44.9); Hemoglobin 15.8 g/dL (11.5-15.4); Immature Granulocytes % 0.8 % (0-4); Lymphocytes # 1.5 K/mcL (0.6-4.6); Lymphocytes % 6.4 %; Mean Corpuscular HGB Conc 35.3 g/dL (31.6-35.5); Mean Corpuscular Volume 82.2 fL (83.0-100.0); Mean Platelet Volume 10.3 fL (9.4-12.4); Monocytes # 1.7 K/mcL (0.0-1.3); Monocytes % 7.4 %; Neutrophils # 19.7 K/mcL (1.6-8.9); Platelet Count 575 K/mcL (140-400); Red Blood Count 5.45 M/mcL (3.82-4.97); Red Cell Distribution Width 13.2 % (11.5-14.5); Segmented Neutrophils % 84.9 %
[2017-10-27 12:13] LABS: Troponin I < 0.03 ng/mL (< 0.04)
[2017-10-27] MEDS ORDERED: 0.9 % Sodium Chloride 1,000 ML IVC SCH (12:15)
[2017-10-27 12:25] LABS: Alanine Aminotransferase 18 Units/L (7-52); Albumin 5.8 g/dL (3.5-5.7); Albumin/Globulin Ratio 1.8 (1.1-2.2); Alkaline Phosphatase 90 Units/L (34-104); Amylase 46 Units/L (29-103); Aspartate Amino Transferase 17 Units/L (13-39); BUN/Creatinine Ratio 14 (6-26); Bilirubin,Direct 0.1 mg/dL (0.0-0.2); Bilirubin,Indirect 0.5 mg/dL (0.0-1.2); Bilirubin,Total 0.6 mg/dL (0.3-1.0); Blood Urea Nitrogen 29 mg/dL (8-23); Calcium 10.8 mg/dL (8.6-10.3); Carbon Dioxide 31 mEq/L (23-29); Chloride 89 mEq/L (98-107); Globulin 3.3 g/dL (2.4-3.5); Glucose 232 mg/dL (70-105); Lipase 21 Units/L (11-82); Osmolality,Calculated 301 (280-300); Potassium 3.7 mEq/L (3.5-5.1); Sodium 139 mEq/L (136-145); Total Protein 9.1 g/dL (6.4-8.9); eGFR For African Americans 30 (> 60); eGFR For Non-African Americans 25 (> 60)
[2017-10-27] MEDS ORDERED: 0.9 % Sodium Chloride 1,000 ML IVC ONE (12:41)
[2017-10-27 13:16] LABS: Bilirubin,Urine Moderate (Negative); Blood,Urine Negative (Negative); Clarity,Urine Cloudy (Clear); Color,Urine Dark Yellow (Yellow); Glucose,Urine (UA) 100 mg/dL (Normal); Ketones,Urine Trace mg/dL (Negative); Leukocyte Esterase,Urine Negative (Negative); Nitrite,Urine Negative (Negative); Protein,Urine 30 mg/dL (Neg-Trace); Specific Gravity,Urine 1.029 (1.010-1.025); Urobilinogen,Urine Normal (Normal)
[2017-10-27 13:19] LABS: Bacteria,Urine None Seen per hpf (None-Few); Squamous Epithelial Cell,Urine Many per lpf (None-Few)
[2017-10-27 13:37] LABS: Hyaline Casts,Urine Few per lpf (None-Few); RBC,Urine 0-3 per hpf (0-3)
[2017-10-27] MEDS ORDERED: *HR* Promethazine 25 MG/ML VIAL IVP PRN (15:53)
[2017-10-27] MEDS ORDERED: Naloxone 0.4 MG/ML INJ IVP PRN (16:44)
[2017-10-27] MEDS ORDERED: Acetaminophen 325 MG TABLET PO PRN (16:44)
--- NOTE | 2017-10-27 16:44 | Internal Med History&Physical ---
Date of Encounter: 10/27/17 Time of Encounter: 02:00 Internal Medicine - H&P: HPI Chief complaint: N/V/D History of present illness: Ms. Staton is a 62 year old female presents with epigastric pain associated with nausea ,vomiting and diarrhea since yesterday. She has history of esophageal ulcers as well as , nonbleeding erosive gastropathy, duodenal ulcer with an adherent clot. The patient was evaluated by the Er and her laboratory data revealed EARL as well as metabolic alkalosis. The patient was admitted for further evaluation and management. Past Med Surg Social Fam HX - Past Medical History Medical history: arthritis, COPD, diabetes, GERD, hypertension, other Psychiatric history: anxiety, depression - Past Surgical History Surgical History: breast surgery - Social History Smoking Status: Current every day smoker Packs per day: 1 Smokeless Tobacco Status: No Alcohol use: none Drug use: none - Family History Father Living Status: Hx Family Cancer: Yes (lymphoma) Mother Living Status: Sister Living Status: Hx Family Cancer: Yes (breast cancer) Internal Medicine - H&P: Meds Cyclobenzaprine [Flexeril] 10 mg PO TID PRN 10/12/15 [History] Insulin DETEMIR [Levemir] 25 unit SQ BID 03/04/17 [History] Lisinopril [Zestril] 5 mg PO DAILY #30 tablet 03/20/17 [Rx] Gabapentin [Neurontin] 600 mg PO TID 10/05/17 [History] Ciprofloxacin [Cipro] 250 mg PO BID #10 tablet 10/29/17 [Rx] Omeprazole [PriLOSEC] 40 mg PO BIDAC #60 capsule.dr 10/29/17 [Rx] Ondansetron ODT [Zofran ODT] 4 mg SL Q4HR PRN #25 tab.rapdis 10/29/17 [Rx] Potassium Chloride 20 meq PO DAILY #5 tab.er.prt 10/29/17 [Rx] Sucralfate [Carafate] 1 gm PO QIDAC #120 tablet 10/29/17 [Rx] 3 Allergy/AdvReac Type Severity Reaction Status Date / Time cephalexin [From Keflex] Allergy Difficulty Verified 03/16/17 17:57 Breathing All Systems PM: A 10-system review of systems was performed and is negative for pertinent findings except as documented above in the HPI. - Constitutional Constitutional: no chills, no fever(s), no night sweats - Cardiovascular Cardiovascular ROS IM: no chest pain, no diaphoresis, no dyspnea, no lightheadedness, no palpitations, no syncope - Respiratory Respiratory: no cough, no dyspnea, no wheezing, no excessive phlegm production - Gastrointestinal Gastrointestinal: abdominal pain, nausea, vomiting, no diarrhea, no hematemesis , no hematochezia, no melena - Neurological Neurological ROS: no confusion, no convulsions, no focal weakness, no numbness, no tingling, no tremor(s) - Constitutional Vitals: Temp Pulse Resp BP Pulse Ox 98.0 F 72 16 141/70 97 10/27/17 15:11 10/27/17 15:11 10/27/17 15:11 10/27/17 15:11 10/27/17 15:11 General appearance: Present: A&O X 3 - Head Head exam: Present: atraumatic, normocephalic - Neck Neck exam general surgery: Present: supple, trachea midline. Absent: lymphadenopathy - Respiratory Respiratory exam: Present: CTAB. Absent: accessory muscle use, rales, rhonchi, wheezes - Cardiovascular Cardiovascular exam: Present: RRR, +S1, +S2. Absent: diastolic murmur, gallop, rubs, systolic murmur - GI/Abdominal GI/Abdominal exam: Present: normal bowel sounds, soft, no peritoneal signs. Absent: distended, tenderness - Extremities Exam Extremities exam: Present: warm, radial pulses palpable and symmetrical. Absent : calf tenderness, cyanotic, pedal edema Internal Med - H&P Results - Labs CBC & Chem 7: 10/28/17 05:48 10/29/17 03:44 - Assessment and plan (1) Nausea and vomiting in adult patient Status: Acute Assessment and plan: ASSESSMENT: - N/V DD *Gastroenteritis *Gastritis *PUD *Pancreatitis *Cholecystitis *Diverticulitis *UTI PLAN: - NPO apart from meds - IVF - Stool WBC, O/P, C/S, Stool C.diff - Urine C+S - CBCD, BMP in AM - GI consult - Zofran (ondansetron) PRN - DVT prophylaxis (2) Diarrhea Status: Acute Assessment and plan: As above Qualifiers: Diarrhea type: unspecified type Qualified Code(s): R19.7 - Diarrhea, unspecified (3) Type 2 diabetes mellitus Status: Chronic Assessment and plan: Cont home meds, ISS Qualifiers: Diabetes mellitus senior care insulin use: with senior care use Diabetes mellitus complication status: with unspecified complications Qualified Code(s) : E11.8 - Type 2 diabetes mellitus with unspecified complications; Z79.4 - predatory animal exterminator (current) use of insulin; Z79.4 - predatory animal exterminator (current) use of insulin; Z79.4 - detention (current) use of insulin; Z79.4 - predatory animal exterminator (current) use of insulin (4) Acute renal failure Status: Acute Assessment and plan: Most likelt 2/2 volume depletion , cont IV hydration, repeat renal panel Qualifiers: Acute renal failure type: unspecified Qualified Code(s): N17.9 - Acute kidney failure, unspecified (5) DVT prophylaxis Status: Acute Assessment and plan: We will place SCs - Time Spent With Patient Total time spent is greater than 50% in coordination of care (as documented) at patient's floor/unit and/or counseling patient:
[2017-10-27] MEDS: 0.9 % Sodium Chloride 1,000 ML IVC SCH ×2 (16:45→22:22)
[2017-10-27] MEDS: Pantoprazole 40 MG VIAL IVP SCH (18:48)
[2017-10-27 19:28] LABS: VBG Ionized Calcium 0.64 mmol/L (1.15-1.35)
[2017-10-27] MEDS: Insulin DETEMIR 100 UNIT/ML X5UNITS SQ SCH (22:23)
[2017-10-27] MEDS: Gabapentin 300 MG CAPSULE PO SCH (22:23)
[2017-10-27] MEDS: Sucralfate 1 GM TABLET PO SCH (22:23)
[2017-10-28] MEDS: Pantoprazole 40 MG VIAL IVP SCH ×2 (04:44→17:44)
[2017-10-28 06:31] LABS: Basophils # 0.1 K/mcL (0.0-0.2); Basophils % 0.7 %; Eosinophils # 0.2 K/mcL (0.0-0.6); Eosinophils % 2.1 %; Hematocrit 34.2 % (35.3-44.9); Immature Granulocytes % 0.4 % (0-4); Lymphocytes # 2.4 K/mcL (0.6-4.6); Lymphocytes % 21.7 %; Mean Corpuscular HGB Conc 31.6 g/dL (31.6-35.5); Mean Corpuscular Hemoglobin 27.8 pg (28.0-33.3); Mean Corpuscular Volume 88.1 fL (83.0-100.0); Mean Platelet Volume 10.2 fL (9.4-12.4); Monocytes # 0.9 K/mcL (0.0-1.3); Neutrophils # 7.5 K/mcL (1.6-8.9); Platelet Count 236 K/mcL (140-400); Red Blood Count 3.88 M/mcL (3.82-4.97); Red Cell Distribution Width 13.3 % (11.5-14.5); Segmented Neutrophils % 67.1 %
[2017-10-28 06:35] LABS: INR 1.1; Prothrombin Time 11.9 Seconds (9.4-12.1)
[2017-10-28 06:37] LABS: Activated Partial Thrombo Time 37.9 Seconds (26.0-36.0)
[2017-10-28 06:52] LABS: Alanine Aminotransferase 10 Units/L (7-52); Albumin 3.6 g/dL (3.5-5.7); Albumin/Globulin Ratio 1.6 (1.1-2.2); Alkaline Phosphatase 55 Units/L (34-104); Aspartate Amino Transferase 11 Units/L (13-39); BUN/Creatinine Ratio 28 (6-26); Bilirubin,Total 0.5 mg/dL (0.3-1.0); Blood Urea Nitrogen 25 mg/dL (8-23); Calcium 8.5 mg/dL (8.6-10.3); Carbon Dioxide 26 mEq/L (23-29); Chloride 105 mEq/L (98-107); Chol/HDL Ratio 6.2 (0-4.9); Cholesterol 148 mg/dL (< 200); Globulin 2.3 g/dL (2.4-3.5); Glucose 102 mg/dL (70-105); HDL Cholesterol 24 mg/dL (40-59); LDL Cholesterol,Calculated 71 mg/dL (0-99); Magnesium 1.4 mg/dL (1.6-2.6); Osmolality,Calculated 295 (280-300); Phosphorous 3.4 mg/dL (2.7-4.5); Potassium 3.2 mEq/L (3.5-5.1); Sodium 140 mEq/L (136-145); Total Protein 5.9 g/dL (6.4-8.9); Triglycerides 264 mg/dL (< 150); eGFR For African Americans > 60 (> 60); eGFR For Non-African Americans > 60 (> 60)
[2017-10-28 07:01] LABS: Hemoglobin 10.8 g/dL (11.5-15.4)
[2017-10-28] MEDS: Insulin DETEMIR 100 UNIT/ML X5UNITS SQ SCH ×2 (09:11→22:16)
[2017-10-28] MEDS: Sucralfate 1 GM TABLET PO SCH ×4 (09:13→22:15)
[2017-10-28] MEDS: Gabapentin 300 MG CAPSULE PO SCH ×3 (09:14→22:15)
--- NOTE | 2017-10-28 13:39 | Internal Med Progress Note ---
Date of Encounter: 10/28/17 Time of Encounter: 13:37 - Assessment and plan (1) Acute renal failure Current Visit: No Status: Acute Assessment and plan: Acute renal failure secondary to severe dehydration possibly as a result of sepsis due to acute gastroenteritis, unclear agent, possible UTI Decrease IV fluids neck Advance diet May continue ciprofloxacin day #[address] scan of the abdomen report does not show any abnormality, after reviewing the images personally nurse some inflammation diffusing the small bowel compatible with possible enteritis Creatinine upon admission was 2.2, white blood cell count was 23.2, hemoglobin has dropped from 15.8 down to 10.8 likely secondary to hemodilution and initial severe dehydration Lactic acid was 3.2, may repeat lactic acid Qualifiers: Acute renal failure type: unspecified Qualified Code(s): N17.9 - Acute kidney failure, unspecified (2) Nausea and vomiting in adult patient Current Visit: No Status: Acute Assessment and plan: Secondary to gastroenteritis (3) Diarrhea Current Visit: No Status: Acute Qualifiers: Diarrhea type: unspecified type Qualified Code(s): R19.7 - Diarrhea, unspecified (4) Type 2 diabetes mellitus Current Visit: No Status: Chronic Assessment and plan: LIAT Carrera Qualifiers: Diabetes mellitus care home insulin use: with terminal gauger supervisor use Diabetes mellitus complication status: with unspecified complications Qualified Code(s) : E11.8 - Type 2 diabetes mellitus with unspecified complications; Z79.4 - petroleum terminal plant operator (current) use of insulin; Z79.4 - petroleum terminal plant operator (current) use of insulin; Z79.4 - [facility] (current) use of insulin; Z79.4 - petroleum terminal plant operator (current) use of insulin (5) Anemia Current Visit: Yes Status: Acute Assessment and plan: Chronic anemia with history of esophageal and gastric ulcers No evidence of active bleeding Monitor CBC Protonix, sucralfate Qualifiers: Anemia type: iron deficiency Iron deficiency anemia type: other iron deficiency Qualified Code(s): D50.8 - Other iron deficiency anemias (6) Tobacco dependence Current Visit: No Status: Chronic Assessment and plan: Smoking cessation counseling, nicotine patch - Time Spent With Patient Total time spent is greater than 50% in coordination of care (as documented) at patient's floor/unit and/or counseling patient: - Subjective Interval history: Feeling better and denies any abdominal pain and distention or cramps, no episodes of diarrhea today, denies any shortness of breath or chest pain, no fevers, no chills, no dysuria - Constitutional Vitals: Temp Pulse Resp BP Pulse Ox 98.0 F 65 17 125/68 97 10/28/17 12:12 10/28/17 12:12 10/28/17 12:12 10/28/17 12:12 10/28/17 12:12 General appearance: Present: A&O X 3 - Head Head exam: Present: atraumatic, normocephalic - Eye Eye exam: Present: PERRL, conjuntiva pink, sclera anicteric Pupils: Present: PERRL - Neck Neck exam general surgery: Present: supple, trachea midline. Absent: lymphadenopathy - Respiratory Respiratory exam: Present: CTAB. Absent: accessory muscle use, rales, rhonchi, wheezes - Cardiovascular Cardiovascular exam: Present: RRR, +S1, +S2. Absent: diastolic murmur, gallop, rubs, systolic murmur - GI/Abdominal GI/Abdominal exam: Present: normal bowel sounds, soft, no peritoneal signs. Absent: distended, tenderness - Extremities Exam Extremities exam: Present: warm, radial pulses palpable and symmetrical. Absent : calf tenderness, cyanotic, pedal edema - Neurological Exam Neurological exam: Present: CN II-XII intact, oriented X3, no focal deficits. Absent: pronater drift, facial droop, speech deficit - Skin Skin exam: Present: dry, intact Internal Medicine: Result - Labs CBC & Chem 7: 10/28/17 05:48 10/28/17 05:48 Labs: Short CBC 10/28/17 Range/Units 05:48 WBC 11.2 H D (4.3-11.1) K/mcL Hgb 10.8 L D (11.5-15.4) g/dL Hct 34.2 L (35.3-44.9) % Plt Count 236 D (140-400) K/mcL Neutrophils # 7.5 (1.6-8.9) K/mcL BMP 10/28/17 05:48 Sodium 140 Potassium 3.2 L Chloride 105 Carbon Dioxide 26 BUN 25 H Creatinine 0.89 Glucose 102 Calcium 8.5 L Cardiac Enzymes 10/27/17 10/27/17 10/28/17 Range/Units 17:08 22:34 05:48 Troponin I < 0.03 < 0.03 < 0.03 (< 0.04) ng/mL Liver Function 10/28/17 Range/Units 05:48 Total Bilirubin 0.5 (0.3-1.0) mg/dL AST 11 L (13-39) Units/L ALT 10 (7-52) Units/L Alkaline Phosphatase 55 (34-104) Units/L Albumin 3.6 (3.5-5.7) g/dL - ABG Interpretation ABG results: PT/INR, D-dimer PT 11.9 Seconds (9.4-12.1) 10/28/17 05:48 Consult Discharge Plan - Plan Referrals: Abraham Toth DO [Primary Care Provider] -
[2017-10-28] MEDS: Nicotine 14 MG PATCH.TD24 TD SCH (15:15)
[2017-10-28] MEDS: 0.9 % Sodium Chloride 1,000 ML IVC SCH (15:16)
--- NOTE | 2017-10-28 17:57 | Electrocardiograph Report ---
[place] [facility] Test Date: 2017-10-27 Pat Name: Ester Staton Department: 103 Room: 2NE28 Gender: F Staff Radiologist: MSC : [id number] Requested By: Sherwin Reyna Order Number: [id number] Reading MD: Nolvia Casas Measurements Intervals [place] Rate: 91 P: 61 DC: 147 QRS: 42 QRSD: 92 T: 73 QT: 389 QTc: 438 Interpretive Statements SINUS RHYTHM LEFT ATRIAL ENLARGEMENT [-0.15mV P WAVE IN V1/V2] MODERATE ST DEPRESSION [0.05+ mV ST DEPRESSION] Electronically Signed On 10-28-2017 17:56:03 EDT by Nolvia Casas
[2017-10-29 04:25] LABS: BUN/Creatinine Ratio 17 (6-26); Blood Urea Nitrogen 14 mg/dL (8-23); Calcium 8.9 mg/dL (8.6-10.3); Carbon Dioxide 29 mEq/L (23-29); Chloride 106 mEq/L (98-107); Glucose 99 mg/dL (70-105); Magnesium 2.1 mg/dL (1.6-2.6); Osmolality,Calculated 289 (280-300); Potassium 3.3 mEq/L (3.5-5.1); Sodium 139 mEq/L (136-145); eGFR For African Americans > 60 (> 60); eGFR For Non-African Americans > 60 (> 60)
[2017-10-29] MEDS: Pantoprazole 40 MG VIAL IVP SCH (06:16)
[2017-10-29 07:20] VITALS: BP 104/46
[2017-10-29] MEDS ORDERED: Magnesium Oxide 400 MG TABLET PO SCH (09:00)
[2017-10-29] MEDS: Sucralfate 1 GM TABLET PO SCH ×2 (09:15→11:12)
[2017-10-29] MEDS: Gabapentin 300 MG CAPSULE PO SCH (09:15)
[2017-10-29] MEDS: 0.9 % Sodium Chloride 1,000 ML IVC SCH (09:16)
[2017-10-29] MEDS: Nicotine 14 MG PATCH.TD24 TD SCH (09:17)
[2017-10-29] MEDS: Insulin DETEMIR 100 UNIT/ML X5UNITS SQ SCH (09:17)
[2017-10-29] MEDS ORDERED: Ondansetron ODT 4 MG TAB.RAPDIS SL PRN (11:14)
--- NOTE | 2017-10-29 11:41 | Discharge Summary ---
- NOTES TO OUTPATIENT PROVIDER Notes to Outpatient Provider: Follow-up with primary care physician within the next 7 days. Complete doses of ciprofloxacin for 5 more days. Use Zofran as needed. Follow up with GI within the next 2 weeks. Orders not resulted at time of discharge: Pending orders 10/28/17 13:35 GI Panel,Stool [[facility]MIC] Routine Date of Encounter: 10/29/17 Time of Encounter: 11:39 - Discharge Diagnosis (1) Acute renal failure Priority: Primary Status: Acute Assessment and Plan: Acute renal failure secondary to severe dehydration possibly as a result of sepsis due to acute gastroenteritis, unclear agent, possible UTI Qualifiers: Acute renal failure type: unspecified Qualified Code(s): N17.9 - Acute kidney failure, unspecified (2) Nausea and vomiting in adult patient Priority: Primary Status: Acute (3) Diarrhea Priority: Primary Status: Acute Qualifiers: Diarrhea type: unspecified type Qualified Code(s): R19.7 - Diarrhea, unspecified (4) Type 2 diabetes mellitus Priority: Secondary Status: Chronic Qualifiers: Diabetes mellitus care home insulin use: with termite inspector use Diabetes mellitus complication status: with unspecified complications Qualified Code(s) : E11.8 - Type 2 diabetes mellitus with unspecified complications; Z79.4 - terminologist (current) use of insulin; Z79.4 - terminologist (current) use of insulin; Z79.4 - terminologist (current) use of insulin; Z79.4 - skilled nursing (current) use of insulin (5) Anemia Priority: Secondary Status: Acute Assessment and Plan: Chronic anemia with history of esophageal and gastric ulcers No evidence of active bleeding PPI, sucralfate Qualifiers: Anemia type: iron deficiency Iron deficiency anemia type: other iron deficiency Qualified Code(s): D50.8 - Other iron deficiency anemias (6) Tobacco dependence Priority: Secondary Status: Chronic Hospital course: Ms. Staton is a 62 year old female with a past medical history of osteoarthritis , COPD oxygen dependent, tobacco abuse, diabetes type 2 insulin-dependent, GERD , anxiety, depression, gastritis with history of esophageal ulcers and chronic anemia presented to the ER with epigastric pain associated with nausea , vomiting and diarrhea since Monday. She has history of esophageal ulcers as well as , nonbleeding erosive gastropathy, duodenal ulcer with an adherent clot. The patient was evaluated by the Er and her laboratory data revealed EARL as well as metabolic alkalosis. Advanced diet Received ciprofloxacin. Tried to obtained a GI panel but the patient did not have a bowel movement in [address] scan of the abdomen report did not show any abnormality, after reviewing the images personally nurse some inflammation diffusing the small bowel compatible with possible enteritis Creatinine upon admission was 2.2, white blood cell count was 23.2, hemoglobin has dropped from 15.8 down to 10.8 likely secondary to hemodilution and initial severe dehydration. There was no evidence of active bleeding Lactic acid was 3.2. All lab work returned back to normal values except for potassium which was 3.3 and was repleted. Feels better this morning, denies any abdominal pain, was given the option to stay another day but prefers to go home at this time nor to follow-up with her primary care physician. Time spent discussing smoking cessation with patient: 3 to 10 minutes - Time Spent with Patient Total time spent providing and/or coordinating discharge services: Greater than 30 minutes (40 minutes) - Discharge Medications Prescriptions: Ciprofloxacin [Cipro] 250 mg PO BID #10 tablet Omeprazole [PriLOSEC] 40 mg PO BIDAC #60 capsule. Potassium Chloride 20 meq PO DAILY #5 tab.er.prt Sucralfate [Carafate] 1 gm PO QIDAC #120 tablet Home Medications: Cyclobenzaprine [Flexeril] 10 mg PO TID PRN 10/12/15 [History] Insulin DETEMIR [Levemir] 25 unit SQ BID 03/04/17 [History] Lisinopril [Zestril] 5 mg PO DAILY #30 tablet 03/20/17 [Rx] Gabapentin [Neurontin] 600 mg PO TID 10/05/17 [History] Ciprofloxacin [Cipro] 250 mg PO BID #10 tablet 10/29/17 [Rx] Omeprazole [PriLOSEC] 40 mg PO BIDAC #60 capsule. 10/29/17 [Rx] Potassium Chloride 20 meq PO DAILY #5 tab.er.prt 10/29/17 [Rx] Sucralfate [Carafate] 1 gm PO QIDAC #120 tablet 10/29/17 [Rx] Allergies/Adverse Reactions: 3 Allergy/AdvReac Type Severity Reaction Status Date / Time cephalexin [From Keflex] Allergy Difficulty Verified 03/16/17 17:57 Breathing Date of admission: 10/27/17 16:44 Primary care physician: Abraham Toth, Consults: 10/27/17 20:02 Consult to Gastroenterology [CONS] Routine Consulting Provider: Gastroenterology [facility] Reason for Consult: N/V/ history of ulcer Time Notified: 20:02 Call Completed: No - Constitutional Vitals: Temp Pulse Resp BP Pulse Ox 97.9 F 56 18 104/46 97 10/29/17 07:18 10/29/17 07:18 10/29/17 07:18 10/29/17 07:18 10/29/17 07:18 General appearance: Present: A&O X 3 - Head Head exam: Present: atraumatic, normocephalic - Eye Eye exam: Present: PERRL, conjuntiva pink, sclera anicteric Pupils: Present: PERRL - Neck Neck exam general surgery: Present: supple, trachea midline. Absent: lymphadenopathy - Respiratory Respiratory exam: Present: CTAB. Absent: accessory muscle use, rales, rhonchi, wheezes - Cardiovascular Cardiovascular exam: Present: RRR, +S1, +S2. Absent: diastolic murmur, gallop, rubs, systolic murmur - GI/Abdominal GI/Abdominal exam: Present: normal bowel sounds, soft, no peritoneal signs. Absent: distended, tenderness - Extremities Exam Extremities exam: Present: warm, radial pulses palpable and symmetrical. Absent : calf tenderness, cyanotic, pedal edema - Neurological Exam Neurological exam: Present: CN II-XII intact, oriented X3, no focal deficits. Absent: pronater drift, facial droop, speech deficit - Skin Skin exam: Present: dry, intact - Patient Status Disposition: Home, Self-Care Condition: Good Overall status at discharge: patient is back to baseline - Discharge Instructions Follow Up With: Abraham Toth DO [Primary Care Provider] - - Diet and Activity Activity: increase activity as tolerated Diet: diabetic diet
== END 2017-10-29 16:54 | disposition home or self-care (01) | DRG 872 ==
LOC: EMEROO 11:09 → 2NENU 11:09
PROVIDERS: ADMIT Hospitalist; ATTEND Hospitalist